=== PATIENT | female | born 1955 | race Caucasian/White ===

== ENCOUNTER 2025-04-05 10:29 | Outpatient (CLI) | payer MEDICARE, OTHER, SELFPAY ==
--- NOTE | ~2025-04-05 | CT_ITS ---
Non-contrast Head CT History: Status post fall Technique: Axial non-contrast imaging of the brain was performed. Dose reduction technique was used on this scan by utilizing automated exposure control and iterative reconstruction technique. The dose -length product (DLP) was 681.00 mGy-cm. Findings: There is no evidence of intracranial hemorrhage, mass lesion, or acute infarct. Brain par enchyma appears normal. The ventricles and subarachnoid spaces are normal in size. The calvarium ap pears normal. There is chronic right maxillary sinus disease. The remaining visualized paranasal sinu ses and mastoid air cells are clear. Impression: No intracranial abnormality seen. Chronic right maxillary sinus disease. Reviewed, dictated and finalized at location . Impression: No intracranial abnormality seen. Chronic right maxillary sinus disease.
--- NOTE | ~2025-04-05 | CT_ITS ---
History: Remote history of fall (approximately 3 weeks earlier) PROCEDURE: CT cervical spine without intravenous contrast. COMPARISON: None TECHNIQUE: Multiple contiguous axial images of the cervical spine were performed without the administration of i ntravenous contrast. DLP: 480 mGy-cm FINDINGS: Straightening and slight reversal of the normal curvature of the cervical spine is identified, likely muscular in origin. Degenerative disease is also noted, with osteophyte formation, disc space narrowing, endplate changes and vacuum phenomena. Facet arthropathy is also noted. No acute fractures are present. The bilateral lung apices are unremarkable. No soft tissue abnormality is present. The airway is patent. Impression: Straightening and slight reversal of the normal curvature of the cervical spine, likely muscular in o rigin. Degenerative disease, without acute fracture. Reviewed, dictated and finalized at location A. Impression: Straightening and slight reversal of the normal curvature of the cervical spine , likely muscular in origin. Degenerative disease, without acute fracture.
--- OUTSIDE RECORDS SUMMARY | 2025-04-05 11:21 | XMS_ITS | Referral Summary ---
Author Organization [facility] Address [address] [place] [address] Care Team Providers Care Rivet Heater Gas Name Role Phone Noah Mccarty MD Primary Care Provider Enid Martin MD Unavailable Richard Rankin DPT Unavailable [phone] Zulay Ghotra DPT Unavailable Encounters Date Type Department Care Team Description 01/23/2025 1:00 PM CDT Telemedicine [facility] Pain Management [address] [place] [phone] Felton Gabriel, PhD Major depressive disorder, recurrent episode, moderate (HCC) (Primary Dx); Other chronic pain from Last 3 Months Allergies Active Allergy Reactions Criticality Noted Date Comments Hydrocodone Mental status changes Low Ibuprofen Mental status changes Low 04/16/2020 Lactose Diarrhea,Other (See comments),Flatulence Low 09/04/2021 velazquez Metformin Diarrhea Low 03/03/2023 Naproxen Hives,Unknown Medium 09/04/2021 anger Olanzapine Other (See comments),Unknown Low 09/04/2021 nightmares Other Hives,Unknown Medium 06/25/2021 Beets Other reaction(s): Hives Red Dye Hives Medium Medications colestipol (COLESTID) 1 gram tabletIndications: diarrhea prevention Take 1 tablet (1 g total) by mouth every morning Active cycloSPORINE (RESTASIS) 0.05 % ophthalmic emulsionIndication s:Dry Eye Administer 1 drop into both eyes every 12 (twelve) hours Active ALPRAZolam (XANAX) 0.5 mg tablet Take 1 tablet (0.5 mg total) by mouth 3 (three) times a day as needed for anxiety or sleep 4 8 Active nitrofurantoin (MACRODANTIN) 100 mg capsuleIndications :Prophylaxis, Medical Take 1 capsule (100 mg total) by mouth 4 (four) times a day as needed (to prevent UTI) Active valACYclovir (VALTREX) 500 mg tabletIndications: cold sore exacerbation Take 1 tablet (500 mg total) by mouth 2 (two) times a day as needed (HSV outbreaks) Active FLUoxetine (PROzac) 40 mg capsuleIndications :depression Take 1 capsule (40 mg total) by mouth every morning Active furosemide (LASIX) 20 mg tabletIndications: Edema Take 2 tablets (40 mg total) by mouth every morning Active doxycycline (VIBRAMYCIN) 100 mg capsuleIndications :Ocular Rosacea Take 1 tablet/capsule (100 mg total) by mouth ceo and founder before breakfast Active QUEtiapine (SEROquel) 100 mg tabletIndications: Anxiety with Depression Take 1 tablet (100 mg total) by mouth nightly Active epinastine 0.05 % ophthalmic solutionIndication s:Allergic Conjunctivitis Administer 1 drop into both eyes 2 (two) times a day as needed (allergy eyes) Active mv-min/iron/folic/ calcium/vitK (WOMEN'S MULTIVITAMIN ORAL)Indications:V itamin Deficiency Prevention Take 1 tablet by mouth every morning Active cholecalciferol (VITAMIN D-3) 2000 unit capsuleIndications :Prevention of Vitamin D Deficiency Take 2 capsules (4,000 Units total) by mouth every morning Active cyanocobalamin, vitamin B-12, (VITAMIN B-12 ORAL)Indications:s upplement Take 1 tablet by mouth nightly Active docosahexaenoic acid/epa (FISH OIL ORAL)Indications:h ealth Take 1 capsule by mouth ceo and founder before breakfast Active fluorometholone (FML) 0.1 % ophthalmic suspensionIndicati ons:Ocular Rosacea Administer 1 drop into both eyes 2 (two) times a day 1 Active gabapentin 10 % cream, metered-dose applicator Apply 1 Dose topically daily as needed (infection) Active fexofenadine (ANNABELLE) 180 mg tabletIndications: Allergic Rhinitis Take 1 tablet (180 mg total) by mouth daily before breakfast Active meloxicam (MOBIC) 15 mg tabletIndications: Osteoarthritis Take 1 tablet (15 mg total) by mouth daily before breakfast Active acetaminophen-code ine (TYLENOL with CODEINE #4) 300-60 mg per tablet Take 1 tablet by mouth every 4 (four) hours as needed for pain 2 Active potassium chloride ER 10 mEq CR capsuleIndications :hypokalemia prevention Take 1 tablet/capsule (10 mEq total) by mouth daily before breakfast 2 Active rOPINIRole (REQUIP) 1 mg tabletIndications: Restless Legs Syndrome Take 2 tablets (2 mg total) by mouth nightly 2 Active spironolactone (ALDACTONE) 25 mg tabletIndications: edema Take 1 tablet (25 mg total) by mouth daily before breakfast 2 Active cyclobenzaprine (FLEXERIL) 5 mg tablet Take 1 tablet (5 mg total) by mouth 3 (three) times a day as needed for muscle spasms 2 Active rosuvastatin (CRESTOR) 10 mg tabletIndications: hyperlipidemia Take 1 tablet (10 mg total) by mouth daily before breakfast 3 Active calcium citrate/vitamin D3 (CITRACAL + D ORAL)Indications:b one health Take 4 capsules by mouth ceo and founder before breakfast Active solifenacin (VESIcare) 5 mg tabletIndications: Bladder Hyperactivity Take 1 tablet (5 mg total) by mouth nightly 3 Active polymyxin B-trimethoprim (POLYTRIM) ophthalmic solution Administer 1 drop into both eyes every 6 (six) hours 3 Active Qsymia 7.5-46 mg capsule, ER multiphase 24 hr 3 Active Lyrica CR 165 mg tablet extended release 24 hr 4 Active amitriptyline (ELAVIL) 100 mg tabletIndications: Complex regional pain syndrome type 1 of lower extremity, unspecified laterality Take 2 tablets (200 mg total) by mouth nightly 360 tablet 2 4 Active Qsymia 11.25-69 mg capsule, ER multiphase 24 hr TAKE 1 CAPSULE BY MOUTH ONCE DAILY IN THE MORNING 4 Active valACYclovir (VALTREX) 1 gram tablet 4 Active moxifloxacin (VIGAMOX) 0.5 % ophthalmic solution INSTILL 1 DROP INTO THE LEFT EYE 4 TIMES A DAY FOR 1 WEEK. 4 Active tiZANidine (ZANAFLEX) 4 mg tablet TAKE 1/2-1 TABLET BY MOUTH EVERY 6-8 HOURS NEEDED NOT TO EXCEED 3 DOSES IN 24 HOURS 4 Active Active Problems Problem Noted Date Diagnosed Date Radicular pain of thoracic region 04/12/2024 Status post insertion of spinal cord stimulator 09/07/2023 Complex regional pain syndrome type 1 05/10/2023 Ischial bursitis 04/27/2023 Thoracic spondylosis 03/13/2023 Sacroiliitis 12/02/2022 Complex regional pain syndro me type 1 of both lower extremities 12/02/2022 Other chronic pain 11/19/2022 Major depressive disorder, recurrent episode, mo derate 11/19/2022 Lumbar radiculopathy 11/10/2022 Neuroma of left upper extremity 11/27/2021 Overview (11/27/2021): Added automatically from request for surgery [id number] Abdominal bloating 11/07/2021 Diverticular disease of colon 11/07/2021 Flatulence 11/07/2021 Lactose intolerance 11/07/2021 Iron deficiency anemia 11/07/2021 Intestinal malabsorption 11/07/2021 Neuropathy of right ulnar nerve at wrist 021 Overview (10/03/2021): Added automatically from request for surgery [id number] Pelvic pain 06/14/2017 Pain in wrist 05/06/2017 History of artificial joint 05/20/2016 Osteoarthritis of hip 02/24/2016 Family history of CREST syndrome Immunizations Immunization Administration Dates Next Due Influenza, Trivalent, IM (MDV) 07/18/2016 Influenza, Trivalent, Preser vative Free, Intramuscular 07/25/2019,07/18/2018,07/23/2015 Influenza, Unspecified 07/11/2021 Social History Tobacco Use Types Packs/Day Years Used Date Smoking Tobacco: Never Smokeless Tobacco: Never Tobacco Cessation:Counseling Given: Not Answered AUDIT-C Answer Date Recorded Q1: How often do you have a drink containing alc ohol? 2-3 times a week 04/11/2024 Q2: How many drinks containi ng alcohol do you have on a typical day when you are drinking? 1 or 2 04/11/2024 Q3: How often do you have si x or more drinks on one occasion? Never 04/11/2024 Hunger Vital Sign Answer Date Recorded Within the past 12 months, y ou worried that your food would run out before you got the money to buy more. Never true 05/07/20 23 Within the past 12 months, t he food you bought just didn't last and you didn't have money to get more. Never true 05/07/2023 Personal Safety Answer Date Recorded Have you ever been in or are you currently in a harmful physical or emotional relationship or is someone making you feel afraid or unsafe? 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 Gender Identity Female 05/24/2018 1:36 PM CDT Sexual Orientation Straight 01/07/2023 7: 48 AM CDT Last Filed Vital Signs Vital Sign Reading Time Taken Comments Blood Pressure 115/58 04/11/2024 4:02 PM CDT Pulse 77 04/11/2024 4:02 PM CDT Temperature 36.5 C (97.7 F) 04/11/2024 1:46 PM CDT Respiratory Rate 16 04/11/2024 4:02 PM CDT Oxygen Saturation 97% 04/11/2024 4:02 PM CDT Inhaled Oxygen Concentration - - Weight 95.7 kg (211 lb) 04/11/2024 1:46 PM CDT Height 157.5 cm (5' 2) 04/11/2024 1:46 PM CDT Body Mass Index 38.59 04/11/2024 1:46 PM CDT Plan of Treatment Not on file Goals Goal Patient Goal Type Associated Problems Recent Progress Patient-Stated? Author CCM Chronic Pain Care Plan Chronic Care Management No change(01/27 8:06 AM CDT) No Anny Goldstein RN Note: Problem: Chronic Pain Goals: 1. Minimize further functional decline 2. Maximize quality of life 3. Control pain Strategies: - Activity/exercise program recommendation - Conservative stepwise pain medicine strategy with multi-disciplinary approach - Recommend healthy lifestyle strategies and compensatory methods as needed Medical Devices Implanted Type Area Fire And Safety Helper Device Identifier Shelf Expiration Date Model / Serial / Lot [employer] Axium Slimtip 1mm 50cm 4 Electrode Lead Front Load Delivery 5mm [id number] - [id number] - [id number] Implanted:Qty: 1 on 08/31/2023 by Dennis Foster MD PhD at [facility] Lead N/A: Epidural Space [employer] 07/22/2024 [id number] 50A / [id number] / [employer] Axium Slimtip 1mm 50cm 4 Electrode Lead Front Load Delivery 5mm [id number] - [id number] - [id number] Implanted:Qty: 1 on 08/31/2023 by Dennis Foster MD PhD at [facility] Lead N/A: Epidural Space [employer] 11/05/2024 [id number] 50A / [id number] / [employer] Axium Slimtip 1mm 50cm 4 Electrode Lead Front Load Delivery 5mm [id number] - [id number] - [id number] Implanted:Qty: 1 on 08/31/2023 by Dennis Foster MD PhD at [facility] Lead N/A: Epidural Space [employer] 03/10/2025 [id number] 50A / [id number] / Rtha-05/07/2005 Implanted:05/07/20 05 (Quantity not on file) Right: Hip [employer] [id number] Seprafilm 6x5in Barrier Adhesion Sterile Disposable Latex Free - [id number] Implanted:Qty: 1 on 10/22/2021 by Ira Marsh MD at [facility] Right: Wrist [facility] [id number] 01/08/2024 [id number] / / [id number] 2 [employer] [id number] Seprafilm 6x5in Barrier Adhesion Sterile Disposable Latex Free - [id number] Implanted:Qty: 1 on 12/09/2021 by Ira Marsh MD at [facility] Left: Wrist [facility] Justin [id number] 01/08/2024 [id number] / / [id number] 2 [employer] Axium Slimtip 1mm 50mm Front Load 4 Electrode 5mm Space Lead [id number] - [id number] - [id number] Implanted:Qty: 1 on 05/10/2023 by Dennis Foster MD PhD at [facility] [employer] [id number] 06/09/2024 [id number] 50A / [id number] / [employer] Axium Slimtip 1mm 50mm Front Load 4 Electrode 5mm Space Lead [id number] - [id number] - [id number] Implanted:Qty: 1 on 05/10/2023 by Dennis Foster MD PhD at [facility] [employer] [id number] 08/30/2024 [id number] [id number] / [id number] / [employer] Axium Slimtip 1mm 50mm Front Load 4 Electrode 5mm Space Lead [id number]-1/24/2 023 Implanted:05/10/20 by Dennis Foster MD PhD (Quantity not on file) N/A: Back [employer] [id number] 08/30/2024 [id number] [id number] / [id number] / [employer] Axium Slimtip 1mm 50mm Front Load 4 Electrode 5mm Space Lead [id number] - [id number] - [id number] Implanted:Qty: 1 on 08/06/2023 by Dennis Foster MD PhD at [facility] [employer] [id number] 07/07/2024 [id number]- 50A / [id number] / [employer] Neurostimulator Proclaim Drg Ipg W Iphone Pt Controller [id number] - [id number] - [id number] Implanted:Qty: 1 on 09/02/2023 by Dennis Foster MD PhD at [facility] N/A: Epidural Space St [employer] [id number] SYSXX / [id number] / [place] [id number] [employer] MEDICARE COMMERCIAL GENERIC MEDICARE [employer] [place] [address] MEDICARE FOR LIFE Advance Directives For more information, please contact: [phone] Documents on File Type Date Recorded Patient Slipper Maker Expl anation ADVANCE DIRECTIVE 09/07/2023 12:37 AM MARIA T ING WILL ADVANCE DIRECTIVE 09/07/2023 12:37 AM POW ER OF BIOPHARMACEUTICAL REP-MEDICAL * Full Code (Latest Code Status on File) Date Activated Date Inactivated Comments 10/22/2021 7:28 PM 10/23/2021 2:52 PM Care Teams Rivet Heater Gas Relationship Specialty Start Date End Date Noah Mccarty MD [address] [place] [address] PCP - General 04/26/17 [place] [address] [place] [address] Surgeon Orthopedic Surgery 06/16/18 Richard Rankin DPT [address] [place] [address] Physical Therapist Physical Therapy 12/20/22 Zulay Ghotra DPT [address] [place] [address] Referring Physician Physical Therapy 03/09/24
--- OUTSIDE RECORDS SUMMARY | 2025-04-05 11:21 | XMS_ITS | Clinical Summary ---
Author Organization [facility] Address [address] [place] [address] Care Team Providers Care Manager Pool Name Role Phone Noah Mccarty MD Primary Care Provider Enid Martin MD Unavailable Richard Rankin DPT Unavailable [phone] Zulay Ghotra DPT Unavailable [phone] Allergies Active Allergy Reactions Criticality Noted Date [...] 1 tablet/capsule (100 mg total) by mouth trim setter before breakfast Active QUEtiapine (SEROquel) 100 mg [...] ORAL)Indications:h ealth Take 1 capsule by mouth trim setter before breakfast Active fluorometholone (FML) 0.1 % [...] one health Take 4 capsules by mouth trim setter before breakfast Active solifenacin (VESIcare) 5 mg [...] (11/27/2021): Added automatically from request for surgery [id number] Abdominal bloating 11/07/2021 Diverticular disease of colon 11/07/2021 Flatulence 11/07/2021 Lactose intolerance 11/07/2021 Iron deficiency anemia 11/07/2021 Intestinal malabsorption 11/07/2021 Neuropathy of right ulnar nerve at wrist 021 Overview (10/03/2021): Added automatically from request for surgery [id number] Pelvic pain 06/14/2017 Pain in wrist 05/06/2017 History of artificial joint 05/20/2016 Osteoarthritis of hip 02/24/2016 Family history of CREST syndrome Encounters Date Type Department Care Team Description 01/23/2025 1:00 PM CDT Telemedicine [facility] Pain Management [address] [place] [phone] Felton Gabriel, PhD Major depressive disorder, recurrent episode, moderate (HCC) (Primary Dx); Other chronic pain from Last 3 Months Immunizations Immunization Administration Dates Next Due Influenza, Trivalent, IM (MDV) 07/18/2016 Influenza, Trivalent, Preser vative Free, Intramuscular 07/25/2019,07/18/2018,07/23/2015 Influenza, Unspecified 07/11/2021 Surgical History Surgery Date Site/Laterality Comments IA TONSILLECTOMY PRIMARY/SEC ONDARY <AGE 12 10/18/1964 - 10/17/1965 HYSTERECTOMY 10/18/1993 - 10/17/1994 GASTRIC BYPASS 10/18/2003 - 10/17/2004 IA ARTHRP ACETBLR/PROX FEM P ROSTC AGRFT/ALGRFT 10/18/2015 - 10/17/2016 Right CARPAL TUNNEL RELEASE 10/18/2000 - 10/17/2001 Bilateral COMBINED AUGMENTATION MAMMAP LASTY AND ABDOMINOPLASTY 10/18/2006 - 10/17/2007 Bilateral WRIST SURGERY 10/18/2016 - 10/17/2017 Bilateral pisaform CARPAL TUNNEL RELEASE 10/18/2021 - 11/17/2021 TONSILLECTOMY 3rd grade FLUORO GUIDED ASPIRATION OR INJECTION INTERMEDIATE JOINT RIGHT 05/10/2023 Right FLUORO GUIDED ASPIRATION OR INJECTION INTERMEDIATE JOINT RIGHT 08/06/2023 Right Medical History Medical History Date Comments Raynaud disease Primary generalized (osteo)arthritis Depression Sleep apnea pt uses CPAP mac lana every night Right foot pain CRPS (complex regional pain syndrome type I) Coccyx pain Right foot pain Low back pain Mid back pain Low back pain Family History Medical History Relation Name Comments Sleep apnea Brother Diabetes Father Family history of diabetes mellitus - (Added by TW Conv) Arthritis Mother Family history of arthritis - (Added by TW Conv) Heart disease Other 1 Family history of cardiac disorder - (Added by TW Conv) Mental illness Other 2 FH: mental il lness - (Added by TW Conv) Arthritis Other 3 Family history of arthritis - (Added by TW Conv) Diabetes Other 4 Family history of diabetes mellitus - (Added by TW Conv) Sleep apnea Sister 1 Sleep apnea Sister 2 Anesthesia problems Neg Hx Relation Name Status Comments Brother Father Mother Other 1 Other 2 Other 3 Other 4 Sister 1 Sister 2 Social History Tobacco Use Types Packs/Day Years [...] on file 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 Gender Identity Female 05/24/2018 1:36 PM CDT Sexual Orientation Straight 01/07/2023 7: 48 AM CDT Obstetrics History Last Filed Vital Signs Vital Sign Reading [...] 04/11/2024 1:46 PM CDT Plan of Treatment Health Maintenance Due Date Last Done Comments Breast Cancer Screening-Mammogram 1957 Colon Cancer Screening-Colonoscopy 1957 Depression Screening 1957 Hepatitis C Screening 1957 Osteoporosis Screening-Bone Density Scan 1957 DTaP/Tdap/Td Vaccine (1 - Tdap) 1968 Hepatitis B Screening 1975 Zoster Vaccine (2 of 3) 06/13/2012 04/18/2012 Well Visit 65+ 2022 Pneumococcal vaccine 65+ (2 of 2 - PCV) 02/11/2023 02/11/2022, 08/28/2020 Covid-19 Vaccine (2023-2 5 season) 2024 09/12/2021, 03/19/2021, 02/11/2021 Fall Risk Assessment 08/31/2024 08/31/2023 Influenza Vaccine (Season Ended) 2025 02/11/2022, 07/11/2021, 07/25/2019, Additional history exists Goals Goal Patient Goal Type Associated Problems [...] as needed Medical Devices Implanted Type Area Tank Truck Driver Device Identifier Shelf Expiration Date Model / Serial / Lot [employer] Axium Slimtip 1mm 50cm 4 Electrode Lead Front Load Delivery 5mm [id number] - [id number] - [id number] Implanted:Qty: 1 on 08/31/2023 by Dennis Foster MD PhD at [facility] Lead N/A: Epidural Space [employer] 07/22/2024 [id number]- 50A / [id number] / [employer] Axium Slimtip 1mm 50cm 4 Electrode Lead Front Load Delivery 5mm [id number] - [id number] - [id number] Implanted:Qty: 1 on 08/31/2023 by Dennis Foster MD PhD at [facility] Lead N/A: Epidural Space [employer] 11/05/2024 [id number]- 50A / [id number] / [employer] Axium Slimtip 1mm 50cm 4 Electrode Lead Front Load Delivery 5mm [id number] - [id number] - [id number] Implanted:Qty: 1 on 08/31/2023 by Dennis Foster MD PhD at [facility] Lead N/A: Epidural Space [employer] 03/10/2025 [id number]- 50A / [id number] / Rtha-05/07/2005 Implanted:05/07/20 (Quantity not on file) Right: Hip [employer] [id number] Seprafilm 6x5in Barrier Adhesion Sterile Disposable Latex Free - [id number] Implanted:Qty: 1 on 10/22/2021 by Ira Marsh MD at [facility] Right: Wrist [facility] [id number] 01/08/2024 [id number] / / [id number] 2 [employer] [id number] Seprafilm 6x5in Barrier Adhesion Sterile Disposable Latex Free - [id number] Implanted:Qty: 1 on 12/09/2021 by Ira Marsh MD at [facility] Left: Wrist [facility] [id number] 01/08/2024 [id number] / / [id number] 2 [employer] Axium Slimtip 1mm 50mm Front Load 4 Electrode 5mm Space Lead [id number] - [id number] - [id number] Implanted:Qty: 1 on 05/10/2023 by Dennis Foster MD PhD at [facility] [employer] [id number] 06/09/2024 [id number]- 50A / [id number] / [employer] Axium Slimtip 1mm 50mm Front Load 4 Electrode 5mm Space Lead [id number] - [id number] - [id number] Implanted:Qty: 1 on 05/10/2023 by Dennis Foster MD PhD at [facility] [employer] [id number] 08/30/2024 [id number]- 50A / [id number] / [employer] Axium Slimtip 1mm 50mm Front Load 4 Electrode 5mm Space Lead [id number]-9/24/2 023 Implanted:05/10/20 by Dennis Foster MD PhD (Quantity not on file) N/A: Back [employer] [id number] 08/30/2024 [id number]- 50A / [id number] / [employer] Axium Slimtip 1mm 50mm Front Load 4 Electrode 5mm Space Lead [id number] - [id number] - [id number] Implanted:Qty: 1 on 08/06/2023 by Dennis Foster MD PhD at [facility] [employer] [id number] 07/07/2024 [id number]- 50A / [id number] / [employer] Neurostimulator Proclaim Drg Ipg W Iphone Pt Controller [id number] - [id number] - [id number] Implanted:Qty: 1 on 09/02/2023 by Dennis Foster MD PhD at [facility] N/A: Epidural Space [employer] [id number] SYSXX / [id number] / Insurance [employer] [facility] MEDICARE COMMERCIAL GENERIC MEDICARE [employer] [place] [address] FOR LIFE Advance Directives For more information, please contact: [phone] Documents on File Type Date Recorded Patient Butter Grader Expl anation ADVANCE DIRECTIVE 09/07/2023 12:37 AM MARIA T ING WILL ADVANCE DIRECTIVE 09/07/2023 12:37 AM POW ER OF FOAM FABRICATOR-MEDICAL * Full Code (Latest Code Status on File) Date Activated Date Inactivated Comments 10/22/2021 7:28 PM 10/23/2021 2:52 PM Care Teams Manager Pool Relationship Specialty Start Date End Date Noah Mccarty MD [address] [place] [address] PCP - General 04/26/17 [place] [address] [place] [address] Surgeon Orthopedic Surgery 06/16/18 Richard Rankin DPT [address] [place] [address] Physical Therapist Physical Therapy 12/20/22 Zulay Ghotra DPT [address] [facility] [address] [place] [address] Referring Physician Physical Therapy 03/09/24
--- OUTSIDE RECORDS SUMMARY | 2025-04-05 11:21 | XMS_ITS | Encounter Summary ---
Author Organization [facility] Address [address] [place] [address] Phone Care Team Providers Care Mens Locker Room Attendant Name Role Phone Noah Mccarty MD Primary Care Provider Enid Martin MD Unavailable Richard Rankin DPT Unavailable [phone] Padmini Turner DPT Unavailable [phone] Lissett Hernandez DPT Unavailable [phone] Zulay Ghotra DPT Unavailable [phone] Encounter Details Date Type Department Care Team (Late st Contact Info) Description 12/29/2022 Documentation [facility] [address] [facility] [address] 14th [place] [address] [place] [address] Kimberly Davila, PT [address] [facility] [address] [place] [address] Social History Tobacco Use Types Packs/Day Years Used Date Smoking Tobacco: Never Smokeless Tobacco: Never AUDIT-C Answer Date Recorded Q1: How often do you have a drink containing alc ohol? Monthly or less 12/29/2022 Q2: How many drinks containi ng alcohol do you have on a typical day when you are drinking? 1 or 2 12/29/2022 Q3: How often do you have si x or more drinks on one occasion? 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 Monthly or less 12/29/2022 10:16 AM CDT Anny Goldstein RN Q2: How many drinks containing alcohol do you have on a typical day when you are drinking? 1 or 2 12/29/2022 10:16 AM CDT Anny Goldstein RN Q3: How often do you have six or more drinks on one occasion? Never 12/29/2022 10:16 AM CDT Anny Goldstein RN documented as of this encounter Plan of Treatment Not on file documented as of this encounter Goals Goal Patient Goal Type Associated Problems [...] lifestyle strategies and compensatory methods as needed documented as of this encounter Visit Diagnoses Not on filedocumented in this encounter Care Teams Mens Locker Room Attendant Relationship Specialty Start Date End Date Noah Mccarty MD [address] [facility] [place] [address] PCP - General 7/10/17 [place] [address] [place] [address] Surgeon Orthopedic Surgery 06/16/18 Richard Rankin, DPT [address] [place] [address] Physical Therapist Physical Therapy 12/20/22 Padmini Turner, DPT [address] [facility] [address] [place] [address] Physical Therapist Physical Therapy 11/18/23 03/08/24 Lissett Hernandez DPT [address] [facility] [address] [place] [address] Physical Therapist Physical Therapy 03/09/24 03/09/24 Zulay Ghotra, DPT [address] [facility] [address] [place] [address] Referring Physician Physical Therapy 03/09/24 documented as of this encounter
--- OUTSIDE RECORDS SUMMARY | 2025-04-05 11:21 | XMS_ITS | Patient Health Record ---
Author Organization [facility] Address [address] [address] Care Team Providers Care Custom Home Installer Name Role Phone Noah Mccarty Primary Care Provider Courtney Schmitt MD, [facility] [phone] ALLERGIES Allergen (clinical drug ingredient) Drug/Non Drug Allergy documented on EMR Reaction Allergy Type Onset Date Status Lactose (Allergy) Unknown Allergy Ac tive olanzapine Zyprexa Unknown Drug Allergy Active acetaminophen / hydrocodone Hydrocodone-Acetamino phen Unknown Drug Allergy Active Aleve Unknown Drug Allergy Active REASON FOR REFERRAL No Information MEDICATIONS Medication SIG (Take, Route, Fr equency, Duration) Notes Start Date End Date Status Atralin Unknown Vitamin D3 Active Xanax Unknown Womens Multivitamin Active Hyaluronic Acid Acti ve Fexofenadine HCl Act romel Vitamin B12 Active Vitamin B 12 Active Citracal + D Active VESIcare Active Diclofenac Sodium 1 % as directed Transdermal Active Tylenol Active Amitriptyline HCl Ac tive QUEtiapine Fumarate Active Potassium Chloride ER Active Zolpidem Tartrate Ac tive Furosemide Active Doxycycline Active Atrantil Active ALPRAZolam Active Epinastine HCl Activ e rOPINIRole HCl Unkno wn Atorvastatin Calcium Active Fluoxetine Active Colestipol HCl Activ e Citracal + D Active Meloxicam Active Gabapentin Unknown CeleBREX Unknown Fish Oil Active Restasis Unknown IMMUNIZATIONS Vaccine Route Administration Date Status Comme nts Influenza Unknown 02/11/2022 Administered pneumoccocal Unknown 02/11/2022 Administered Influenza Unknown 08/20/2020 Refused pneumoccocal Unknown 08/20/2020 Refused SOCIAL HISTORY Tobacco Use: Social History Observation Description Date Details (start date - stop date) Never Smoker NA - NA Sex Assigned At : Social History Observation Description Sex Assigned At Unknown Tobacco Use: Question Answer Notes Patient is a: nonsmoker Alcohol screening: Question Answer Notes Did you have a drink contain ing alcohol in the past year? Yes How often did you have a dri nk containing alcohol in the past year? Four or more times a week (4 points) How many drinks did you have on a typical day when you were drinking in the past year? 1 or 2 (0 points) How often did you have six o r more drinks on one occasion in the past year? Never (0 points) Points 4 Interpretation Positive PROBLEMS Problem Type ICD Code Onset Dates Problem Status W/U Status Risk SNOMED Code Notes Problem Unilateral primary osteoarthritis, right hip (M16.11) Active confirmed Localized , primary osteoarthritis of the pelvic region and thigh (366765395) Problem Plantar fascial fibromatosis (M72.2) 01/01/20 22 Active confirmed 13736292 Problem Pain in right ankle and joints of right foot (M25.571) 04/16/20 18 Active confirmed 897575729 Problem Trigger thumb, right thumb (M65.311) Active confirmed 880838365912464 Problem Trigger finger, right index finger (M65.321) Active confirmed 403663147 Problem Trigger finger, left index finger (M65.322) Active confirmed 571187204 Problem Trigger finger, left middle finger (M65.332) Active confirmed 450214986 Problem Trigger finger, right ring finger (M65.341) 04/03/20 21 Active confirmed 430643919 Problem Trigger finger, right little finger (M65.351) 04/03/20 21 Active confirmed 314445835 Problem Trigger finger, left little finger (M65.352) Active confirmed 586912141 Problem Cramp and spasm (R25.2) 04/18/20 21 Active confirmed 79757021 Problem Other sprain of right hip, initial encounter (S73.191A) Active confirmed sprain of right hip (6687729320305555 4) Problem Neck pain (M54.2) 04/03/20 21 Active confirmed 84608880 Problem Numbness (R20.0) Active confirmed 95864 006 Problem Primary osteoarthritis of both first carpometacarpal joints (M18.0) Active confirmed 577509118 Problem Trigger little finger of right hand (M65.351) Active confirmed 097372100 Problem Hand weakness (R29.898) 04/18/20 21 Active confirmed 248778691 PLAN OF TREATMENT No Information Insurance Providers Payer Name Payer Address Payer Phone Subscriber Number Group Number Insured Name Patient Relationship to Insured Coverage Start Date Coverage End Date [facility] Claims [address] [place] [address] [id number] Arnie Garcia Spouse - patient is the spouse of the insured [employer] [address] [place] [address] [id number] Arnie Garcia Spouse - patient is the spouse of the insured MEDICAL (GENERAL) HISTORY Medical History History ICD Code irritable bowel syndrome anxiety depression raynauds syndrome arthritis, osteo sleep apnea peripheral neuropathy Surgical History Surgery Date(Month/Year) tubal ligation gastric bypass carpal tunnel release, bilatera tonsillectomy and adenoidectomy hysterectomy partial knee replacement, right right hip replacement Pisiform extraction, bilateral tummy tuck
--- OUTSIDE RECORDS SUMMARY | 2025-04-05 11:21 | XMS_ITS | Clinical Summary ---
Author Organization [facility] Address [address] [place] [address] Care Team Providers Care Repair Operator Name Role Phone Marcos Campbell MD Primary Care Provider + Allergies Active Allergy Reactions Criticality Noted Date Comments Beet Hives High 06/09/2024 Hydrocodone Hives High 04/27/2024 Ibuprofen Diarrhea,Nausea and Vomiting Low 020 Lactose Diarrhea,Abdominal Pain,Other (See Comments) Low 09/04/2021 velazquez Metformin Diarrhea Low 03/03/2023 Naproxen Hives,Unknown High 09/04/2021 anger Olanzapine Other (See Comments),Unknown Low 021 nightmares Olanzapine Pamoate Other (See Comments) 025 Nightmares Red Dye Hives High 04/27/2024 Medications ALPRAZolam (XANAX) 0.5 mg tablet Take 0.5 mg by mouth nightly as needed. 09/22/20 23 Active Cholecalciferol, Vitamin D3, 50 mcg (2,000 unit) Capsule Take 4,000 Units by mouth daily. Active colestipoL (COLESTID) 1 gram tablet Take 1 Gram by mouth 2 times daily. 02/17/20 23 Active FLUoxetine (PROzac) 40 mg capsule 40 mg daily. 08/26/20 23 Active meloxicam (MOBIC) 15 mg tablet Take 15 mg by mouth daily before breakfast. 08/26/20 Active potassium chloride (MICRO-K EXTENCAPS) 10 mEq Extended Release capsule Take 20 mEq by mouth daily. 06/20/20 Active pregabalin (LYRICA CR) 165 mg Extended Release 24 hour tablet 165 mg 3 times daily. 11/18/19 24 Active rOPINIRole (REQUIP) 1 mg tablet Take 2 mg by mouth daily at bedtime. 06/16/20 Active rosuvastatin (CRESTOR) 10 mg tablet Take 10 mg by mouth daily. 03/29/20 23 Active solifenacin (VESICARE) 5 mg Tablet Take 5 mg by mouth daily at bedtime. 08/17/20 Active spironolactone (ALDACTONE) 25 mg tablet Take 25 mg by mouth daily. 06/20/20 Active tiZANidine (ZANAFLEX) 4 mg Tablet TAKE 1/2-1 TABLET BY MOUTH EVERY 6-8 HOURS NEEDED NOT TO EXCEED 3 DOSES IN 24 HOURS 02/08/20 Active zolpidem (AMBIEN) 10 mg tablet Take 10 mg by mouth nightly as needed. 09/22/20 Active fexofenadine (ANNABELLE) 180 mg tablet Take 180 mg by mouth daily. Active furosemide (LASIX) 20 mg tablet Take 40 mg by mouth daily. Active cycloSPORINE (RESTASIS) 0.05 % emulsion Administer 1 Drop in both eyes 2 times daily. Active epinastine (ELESTAT) 0.05 % solution 1 Drop by See Admin Instructions route 2 times daily. Active amitriptyline (ELAVIL) 100 mg tablet Take 100 mg by mouth daily at bedtime. Active azelastine (OPTIVAR) 0.05 % solution 1 Drop by See Admin Instructions route 2 times daily. Active nitrofurantoin macrocrystaL (MACRODANTIN) 25 mg Capsule Take 25 mg by mouth 4 times daily with meals and at bedtime. Active valACYclovir (VALTREX) 1 gram tablet Take 1 Gram by mouth 2 times daily. Active OTHERIndications :Complex regional pain syndrome type 2 of right lower extremity Drug name: Lidocaine 5%, Clonidine 0.2%, Ketoprofen 10%, Gabapentin 10%, ketamine 5%, Amitriptyline 1%. Apply to right foot for pain up to 4x/day as needed. 60 Gram 01/18/20 25 Active Active Problems Problem Noted Date Diagnosed Date Complex regional pain syndro me type 2 of right lower extremity 07/10/2024 Chronic use of opiate drug for therapeutic purpo se 07/10/2024 Family history of CREST syndrome 04/27/2024 Myofascial pain 04/27/2024 Radicular pain of thoracic region 04/12/2024 Status post insertion of spinal cord stimulator 09/07/2023 Complex regional pain syndrome type 1 05/10/2023 Ischial bursitis 04/27/2023 Thoracic spondylosis 03/13/2023 Sacroiliitis 12/02/2022 Major depressive disorder, recurrent episode, mo derate 11/19/2022 Other chronic pain 11/19/2022 Lumbar radiculopathy 11/10/2022 Neuroma of left upper extremity 11/27/2021 Overview (04/27/2024): Added automatically from request for surgery [id number] Diverticular disease of colon 11/07/2021 Intestinal malabsorption 11/07/2021 Iron deficiency anemia 11/07/2021 Lactose intolerance 11/07/2021 Neuropathy of right ulnar nerve at wrist 021 Overview (04/27/2024): Added automatically from request for surgery [id number] Pain in wrist 05/06/2017 History of artificial joint 05/20/2016 Osteoarthritis of hip 02/24/2016 Encounters Date Type Department Care Team Description 04/03/2025 11:30 AM CDT Office Visit [facility] [address] [place] [address] Jenni Tobar NP Complex regional pain syndrome type 2 of right lower extremity (Primary Dx); Ischial bursitis, unspecified laterality 03/13/2025 External Device Data STL ABSTRACTION Provider, Abstract 03/08/2025 2:30 PM CDT Office Visit [facility] [address] [place] [place] [address] Jenni Tobar, ANGELICA Complex regional pain syndrome type 2 of right lower extremity (Primary Dx); Falls 03/07/2025 External Device Data STL ABSTRACTION Provider, Abstract 03/06/2025 External Device Data STL ABSTRACTION Provider, Abstract 03/05/[address] [facility] [address] [place] [phone] Dennis Foster MD 03/01/2025 9:00 AM CDT - 03/01/2025 9:55 AM CDT Surgery [facility] Operating Room [address] [facility] [address] [place] [address] Dennis Foster MD SPINAL CORD DORSAL COLUMN STIMULATOR INSERTION 03/01/2025 8:05 AM CDT Ancillary Procedure [facility] Operating Room [address] [facility] [address] [place] [address] Dennis Foster MD 03/01/2025 7:49 AM CDT - 03/01/2025 10:10 AM CDT Hospital Encounter [facility] [address] [facility] [address] [place] [address] Dennis Foster MD Causalgia of right lower extremity Discharge Disposition: Home or Self Care 02/20/[address] [facility] [address] [place] [place] [address] Dennis Foster MD 02/20/[address] [facility] [address] [place] [address] Dennis Foster MD 02/12/[address] [facility] [address] [place] [address] Dennis Foster MD NEEDS PT ORDERS FOR [facility] [place], [place] 01/29/2025 9:10 AM CDT - 01/29/2025 9:22 AM CDT Surgery [facility] [address] [facility] [address] [place] [address] Dennis Foster MD BURSA TROCHANTERIC STEROID INJECTION BILATERAL 01/29/2025 8:25 AM CDT Ancillary Procedure [facility] Operating Room [address] [facility] [address] [place] [address] Dennis Foster MD 01/29/2025 8:15 AM CDT - 01/29/2025 10:37 AM CDT Hospital Encounter [facility] Pre Post [address] [facility] [address] [place] [address] Dennis Foster MD Bursitis of other bursa of hip, unspecified laterality Discharge Disposition: Home or Self Care 01/29/2025 Travel 01/25/[address] [facility] [address] [place] [address] Dennis Foster MD Medication Question 01/18/2025 Travel 01/18/[address] [facility] [address] [place], [place] [address] Dennis Foster MD 01/17/2025 1:20 PM CDT Office Visit [facility] [address] [place] [address] Dennis Foster MD Complex regional pain syndrome type 2 of right lower extremity (Primary Dx); Chronic use of opiate drug for therapeutic purpose; Ischial bursitis, unspecified laterality 01/03/2025 External Device Data STL ABSTRACTION Provider, Abstract from Last 3 Months Immunizations Immunization Administration Dates Next Due (PNEUMOVAX 23)(50 YRS UP) PN EUMOCOCCAL POLYSACCHARIDE (PPV23) 0.5 ML, IM 02/11/2022 Influenza Seasonal Unspecifi ed Formulation IM 07/18/2016 Influenza Seasonal Unspecifi ed Formulation PF IM 07/25/2019,07/18/2018,07/23/2015 Influenza Vaccine High Dose 65+ Yrs IM 2 Influenza, Unspecified Formulation 07/11/2021 Zoster Vaccine Live SQ 04/18/2012 Social History Tobacco Use Types Packs/Day Years Used Date Smoking Tobacco: Never Tobacco Cessation:Counseling Given: Not Answered Alcohol Use Standard Drinks/Week Comments Not Currently 0 (1 standard drink = 0.6 oz pur e alcohol) Feeling Safe Answer Date Recorded Are you in a relationship wi th someone who hurts you emotionally and/or physically? 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 Gender Identity Female 04/30/2024 7:27 PM CDT Sexual Orientation Not on file Last Filed Vital Signs Vital Sign Reading Time Taken Comments Blood Pressure 123/56 04/03/2025 11:16 AM CDT Pulse 85 04/03/2025 11:16 AM CDT Temperature 36.3 C (97.3 F) 03/01/2025 9:30 AM CDT Respiratory Rate 15 03/01/2025 9:30 AM CDT Oxygen Saturation 95% 04/03/2025 11:16 AM CDT Inhaled Oxygen Concentration - - Weight 90.1 kg (198 lb 9.6 oz) 04/03/2025 11:16 AM CDT Height 157.5 cm (5' 2) 04/03/2025 11:16 AM CDT Body Mass Index 36.32 04/03/2025 11:16 AM CDT Plan of Treatment Upcoming Encounters Date Type Department Care Team (Latest Contact Info) Description 05/15/2025 7:30 AM CDT Hospital Encounter [facility] Operating Room [address] [facility] [address] [place] [address] Dennis Foster MD [address] [place] [phone] Bursitis of both hips, unspecified bursa 05/15/2025 7:30 AM CDT - 05/15/2025 7:42 AM CDT Surgery [facility] Operating Room [address] [facility] [address] [place] [address] Dennis Foster MD [address] [place] [address] BURSA TROCHANTERIC STEROID INJECTION Scheduled Procedures Name Priority Associated Diagnoses Date/Ti me BURSA TROCHANTERIC STEROID INJECTION Bursitis of both hips, unspecified bursa 05/15/2025 7:30 AM CDT Health Maintenance Due Date Last Done Comments Pre-Diabetes and Diabetes Screening 1955 DTAP/TDAP/TD VACCINES (1 - Tdap) 1976 COLORECTAL SCREENING 2002 Colorectal Cancer Screening 2002 FIT-DNA Q 3 years 2002 FIT/FOBT Q 1 year 2002 Flex Sig/CT Colonography Q 5 years 2002 ZOSTER VACCINE (2 of 3) 06/13/2012 04/18/2012 BREAST CANCER SCREENING 05/24/2014 05/24/20 13, 05/24/2013, 05/08/2013 OSTEOPOROSIS SCREENING 2022 PNEUMOCOCCAL VACCINE 50+ YEA RS (2 of 2 - PCV) 02/11/2023 02/11/2022, 08/28/2020 INFLUENZA VACCINE (#1) 2024 2, 07/25/2019, 07/18/2018, Additional history exists COVID-19 Vaccine (2 - 2023-2 5 season) 2024 09/12/2021 RSV VACCINE (60+ or ) (1 - 1-dose 75+ series) 2032 Medical Devices Implanted Type Area Route Deliverer Device Identifier Shelf Expiration Date Model / Serial / Lot Lead Vectris 1x8 60cm Trial [facility] [id number] - [id number] Implanted:Qty: 1 on 03/01/2025 by Dennis Foster MD at [facility] Lead N/A: Back [employer]- NEUROLOGIC TECH 01/08/2029 [id number] / / [id number] Lead Vectris 1x8 60cm Trial [facility] [id number] - [id number] Implanted:Qty: 1 on 03/01/2025 by Dennis Foster MD at [facility] Lead N/A: Back [employer]- NEUROLOGIC TECH 01/26/2029 [id number] / / [id number] Neuro Stimulator Neuro Stimulator [employer]- [employer] 3664 / / Description:[email or web address] Minden [employer]la [employer] [id number] - [id number] Implanted:Qty: 1 on 03/01/2025 by Dennis Foster MD at [facility] Other N/A: Back [employer]- NEUROLOGIC TECH 12/28/2028 [id number] / / [id number] Total Hip Replacement Right: Hip Procedures Procedure Name Priority Date/Time Associated Diagnosis Comments XR FLUORO LESS THAN 1 HOUR Routine 03/01/2025 9:19 AM CDT IN ELEC LEANDRO IMPLT NPGT SMPL SP/PN NPGT PRGRMG 03/01/2025 9:00 AM CDT Causalgia of right lower extremity IN PRQ IMPLTJ NSTIM ELECTRODE ARRAY EPIDURAL 03/01/2025 9:00 AM CDT Causalgia of right lower extremity XR FLUORO LESS THAN 1 HOUR Routine 01/29/2025 9:34 AM CDT CHG FLUOROSCOPIC GUIDANCE NEEDLE PLACEMENT ADD ON 01/29/2025 9:10 AM CDT Bursitis of other bursa of hip, unspecified laterality IN ARTHROCENTESIS ASPIR&/INJ MAJOR JT/BURSA W/O US 01/29/2025 9:10 AM CDT Bursitis of other bursa of hip, unspecified laterality from Last 3 Months Results * XR FLUORO LESS THAN 1 HOUR (03/01/2025 9:19 AM CDT) Only the most recent of2 resultswithin the time period is included. Narrative 03/01/2025 9:19 AM CDT Order Auto Finalized. Please see associated Operative Report/Progress Note/Procedure Note from the same date. us Dennis Foster MD DIAGNOSTIC IMAGING ORDERABLES Final Result from Last 3 Months Insurance MEDICARE PART A AND B FOR LIFE Care Teams Repair Operator Relationship Specialty Start Date End Date Marcos Campbell MD [address] [place] [phone] PCP - General Internal Medicine 04/03/25
--- OUTSIDE RECORDS SUMMARY | 2025-04-05 11:21 | XMS_ITS | Patient Health Record ---
Author Organization [employer] Address [address] [facility] [address] [place] [address] Care Team Providers Care Household Chores Name Role Phone z(Retired) Lul CEJA, [place] Primary [facility] Provi taylor Unavailable McMorrow, Ace Unavailable [phone] Allergies Allergen (clinical drug ingredient) Drug/Non Drug Allergy documented on EMR Reaction Allergy Type Onset Date Status Aleve (uncoded) Unknown Allergy Acti ve Eggs (uncoded) Unknown Allergy Activ e Lactose (uncoded) Unknown Allergy Ac tive Red Beets (uncoded) Hives Allergy Active acetaminophen / oxycodone Percocet Alters brain function Drug Allergy Active Vicodin Unknown Drug Allergy Active olanzapine Zyprexa Unknown Drug Allergy Active hydrocodone Hydrocodone Unknown Drug Allergy Act romel olanzapine Olanzapine Unknown Drug Allergy Activ e metformin Metformin Unknown Drug Allergy Active Reason For Referral No Information Medications Medication SIG (Take, Route, Frequency, Duration) Notes Start Date End Date Status Fexofenadine HCl Act romel Amitriptyline HCl Ac tive VESIcare Active Neomycin Sulfate 500 MG 1 tablet Orally bid for 10 day(s) 05/20/2023 Active Fluoxetine Active Xanax Active Phentermine HCl Acti ve Meloxicam Active OTC/Vitamins Compounded Nerve Symptom Relief Lotion, Women's Vitamin, Vit D3, Vit B12, Fish Oil, Potassium Chloride, Hyaluronic Acid, Tylenol Active Furosemide Active Zolpidem Tartrate Ac tive Restasis Active QUEtiapine Fumarate Active rOPINIRole HCl Activ e Colestipol HCl Activ e Citracal + D Active Spironolactone Activ e Lyrica Active Immunizations Vaccine Route Administration Date Status Comme nts Influenza, seasonal, injecta ble, preservative free, 3 yrs and above Unknown 07/18/2018 Administered Influenza, seasonal, injecta ble, preservative free, 3 yrs and above Unknown 07/25/2019 Administered Pneumococcal polysaccharide PPV23 Unknown 08/28/2020 Ad ministered Social History Tobacco Use: Social History Observation Description Date Details (start date - stop date) Never Smoker NA - NA Tobacco Use/Smoking Question Answer Notes Are you a nonsmoker Problems Problem Type SNOMED Code ICD Code Onset Dates Problem Status W/U Status Risk Notes Problem 33886764 Other iron deficiency anemias (D50.8) Active confirmed Problem 021228131 Flatulence (R14.3) Active confirmed Problem Small bowel bacterial overgrowth syndrome (875368509) Small intestinal bacterial overgrowth (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 Problem Flatulence, eructation and gas pain (026888699) Bloating (R14.0) Active confirmed She has significant abdominal bloating and has been treated for SIBO several times in the past with good improvement. She recently finished the antibiotic regimen, but was unable to take it as prescribed because she forgot to take it with her on vacation. She had mild improvement, but is requesting another round of antibiotics. Problem History of polyp of colon (situation) (961443813) History of colon polyps (Z86.010) Active confirmed Her last colonoscopy in October 2019 revealed hemorrhoids and a 5 mm polyp. She was advised to follow-up in 5 years. Problem 30780323 Iron deficiency anemia (D50.9) Active confirmed She underwent upper endoscopy and colonoscopy in November of this year due to iron deficiency anemia. It was suspected her anemia was related to malabsorption of iron from her gastric bypass surgery and the small gastric erosion. She received an iron infusion and has been monitoring her blood counts every 3 months. Problem 301906282 Lactose intolerance (E73.9) Active confirmed She follows a dairy free diet. Problem 951461389 Abdominal bloating (R14.0) Active confirmed She complains today of abdominal bloating and gas she associates with SIBO. She was tested and treated several years ago for similar symptoms with Neomycin. Suspect this is the cause for her recent bloating. Unlikely considerations would be food intolerance, partial bowel obstruction, IBD, celiac disease, peptic ulcer, gastritis, or other. Problem Rectal pain (03944914) Rectal pain (K62.89) Active confirmed She has had tailbone pain for the last several months and has been sitting on a donut. As a result, this has caused increased pressure in her rectum. Her rectal exam today was unrevealing. 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 She does well on this medication and denies alarm features. She typically has a bowel movement every other day. Problem 409637738 Colonic diverticular disease (K57.30) Active confirmed Problem Acid reflux (248166026) Acid reflux (K21.9) Active confirmed She has occasional acid reflux, which she is typically able to control with Gaviscon as needed. Problem History of bypass of stomach (856844887) H/O gastric bypass (Z98.84) Active confirmed She is status post gastric bypass. Plan Of Treatment Pending Test Test Name Order Date IRON AND TOTAL IRON BINDING CAPACITY FERRITIN 02/08/2020 Initiate SIBO 01/26/2017 CBC With Differential/Platelet 0 Future Test Test Name Order Date CBC With Differential/Platelet 0 Insurance Providers Payer Name Payer Address Payer Phone Subscriber Number Group Number Insured Name Patient Relationship to Insured Coverage Start Date Coverage End Date Medicare E2 [address] [address] [place] [phone] [id number] [phone] [id number] Scott Garcia Self - patient is the insured [facility] [address] [place] [address] [id number] Arnie Garcia Spouse - patient is the spouse of the insured Medical (General) History Medical History History ICD Code GERD Hemorrhoids SIBO Lactose Intolerance Diverticulosis Colon Polyps Anemia Depression/Bipolar Osteo Arthritis Insomnia Reynaud's Syndrome Neuropathy Fibromyalgia Sleep Apnea/CPAP Surgical History Surgery Date(Month/Year) EGD 11/2019 Colonoscopy 11/2019 Gastric Bypass 2004 Cholecystectomy Total Right Hip Replacement 2016 Bilateral RPK Surgery 2007 Tummy Uvaldock 2007 Abdominoplasty 2006 Hysterectomy 1994 Bilateral Tubal Ligation 1982 Tonsillectomy and Adeniodectomy Bilateral Carpal Tunnel Release Adenoidectomy Bilateral Pistiform Extraction
--- OUTSIDE RECORDS SUMMARY | 2025-04-05 11:21 | XMS_ITS | Encounter Summary ---
Author Organization [facility] Address [address] [place] [address] Care Team Providers Care Financial Counselor Name Role Phone Noah Mccarty MD Primary Care Provider Enid Martin MD Unavailable Richard Rankin DPT Unavailable [phone] Padmini Turner DPT Unavailable Lissett Hernandez DPT Unavailable Zulay Ghotra DPT Unavailable [phone] Encounter Details Date Type Department Care Team (Late st Contact Info) Description 05/10/2023 Telephone [facility] [address] [facility] [address] [place] [address] Dennis Foster MD PhD [address] [place] [address] Social History Tobacco Use Types Packs/Day Years Used Date Smoking Tobacco: Never Smokeless Tobacco: Never AUDIT-C Answer Date Recorded Q1: How often do you have a drink containing alc ohol? 2-4 times a month 03/11/2023 Q2: How many drinks containi ng alcohol do you have on a typical day when you are drinking? 1 or 2 03/11/2023 Q3: How often do you have si x or more drinks on one occasion? Never 03/11/2023 Hunger Vital Sign Answer Date Recorded Within the past 12 months, y ou worried that your food would run out before you got the money to buy more. Never true 05/07/20 23 Within the past 12 months, t he food you bought just didn't last and you didn't have money to get more. 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 Author CCM Chronic Pain Care Plan Chronic Care Management No change(01/27 8:06 AM CDT) No Anny Goldstein, RN Note: Problem: Chronic Pain Goals: 1. Minimize further functional decline 2. Maximize quality of life 3. Control pain Strategies: - Activity/exercise program recommendation - Conservative stepwise pain medicine strategy with multi-disciplinary approach - Recommend healthy lifestyle strategies and compensatory methods as needed documented as of this encounter Visit Diagnoses Not on filedocumented in this encounter Care Teams Financial Counselor Relationship Specialty Start Date End Date Noah Mccarty MD [address] [place] [address] PCP - General 04/26/17 [place] [address] [place] [address] Surgeon Orthopedic Surgery 06/16/18 Richard Rankin DPT [address] [place] [address] Physical Therapist Physical Therapy 12/20/22 Padmini Turner, VAUGHNT [address] [facility] [address] [place], [place] [id number] Physical Therapist Physical Therapy 11/18/23 03/08/24 Lissett Hernandez DPT [address] [facility] [address] [place], [place] [id number] Physical Therapist Physical Therapy 03/09/24 03/09/24 Zulay Ghotra DPT [address] [place], [place] [id number] Referring Physician Physical Therapy 03/09/24 documented as of this encounter
[2025-04-05 11:33] LABS: Add Urine Microscopic? YES; Appearance Urine Clear (Clear); Bacteria Urine None Seen /hpf; Bilirubin Urine Negative (Negative); Blood Urine Negative (Negative); Color Urine Yellow (Yellow); Glucose Urine UA Negative (Negative); Ketones Urine Negative (Negative); Leukocyte Esterase Ur Trace LEU/UL (Negative); Need Manual Microscopic Reviewed; Nitrate Urine Negative (Negative); Non Pathogenic Casts 0-2; Protein Urine Negative (Negative); RBC Urine 0-2 /hpf (0-2); Specific Grav Ur 1.017 (1.001-1.035); Squamous Epithelial Cell Urine Moderate /hpf (Few); Urobilinogen Urine 0.2 mg/dL (<2.0); WBC Urine 0-5 /hpf (0-3)
[2025-04-05 11:39] LABS: Basophils Absolute Auto 0.1 K/mm3 (0.0-0.1); Basophils Percent Auto 0.6 % (0.2-1.2); Eosinophils Absolute Auto 0.3 K/mm3 (0-0.3); Eosinophils Percent Auto 4.1 % (0-4.4); Hematocrit 43.5 % (37.0-47.0); Hemoglobin 13.3 g/dL (12.0-15.0); Immature Granulocyte Absolute 0.03 K/mm3 (0.00-0.031); Immature Granulocyte Percent A 0.4 % (0-0.5); Lymphocytes Absolute Auto 2.19 K/mm3 (0.9-3.2); Lymphocytes Percent Auto 27.9 % (18.3-44.2); Mean Corpuscular HGB Conc 30.6 g/dl (32-36); Mean Corpuscular Hemoglobin 31.1 pg (26-34); Mean Corpuscular Volume 101.9 fl (80-100); Mean Platelet Volume 10.4 fl (7.4-10.4); Monocytes Absolute Auto 0.5 K/mm3 (0.1-0.6); Monocytes Percent Auto 6.6 % (2.6-8.5); Neutrophils Absolute Auto 4.8 K/mm3 (1.3-6.7); Neutrophils Percent Auto 60.4 % (45.5-73.1); Platelet Count Result 223 k/mm3 (150-375); Red Blood Count 4.27 M/mm3 (4.2-5.4); Red Cell Distribution Width 13.5 % (11.5-14.5); White Blood Count 7.9 K/mm3 (4.5-10.0)
[2025-04-05 11:46] LABS: Chloride 107 mmol/L (98-107)
[2025-04-05 11:47] LABS: Alanine Aminotransferase 12 U/L (6-35); Albumin Level 3.5 g/dL (3.5-5.1); Alkaline Phosphatase 93 U/L (38-126); Anion Gap 6 mmol/L (4-12); Aspartate Amino Transferase 29 U/L (14-36); Bilirubin,Total 0.2 mg/dL (0.2-1.3); Blood Urea Nitrogen 14 mg/dL (7-17); Calcium 8.7 mg/dL (8.4-10.2); Carbon Dioxide 28 mmol/L (22-30); Cholesterol 105 mg/dL (0-200); Estimated Glomerular Filt Rate > 60; Glucose 83 mg/dL (65-110); HDL Direct 55 mg/dL; Potassium 3.9 mmol/L (3.4-5.0); Sodium 141 mmol/L (137-145); Triglycerides 65 mg/dL (<150)
[2025-04-05 11:58] LABS: LDL Cholesterol Direct 30 mg/dL
[2025-04-05 12:18] LABS: Free T4 Free Thyroxine 0.97 ng/dL (0.78-2.19); Vitamin D 25 Hydroxy 29.2 ng/mL
[2025-04-05 12:40] LABS: Hemoglobin A1C 5.5 % (<5.7)
[2025-04-05 12:51] LABS: Folic Acid 14.9 ng/mL (2.76->20)
[2025-04-05 12:52] LABS: Vitamin B12 > 1000.0 pg/mL (239-931)
[2025-04-06 07:39] LABS: C-Peptide. 1.96 ng/mL (0.80-3.85)
[2025-04-09 22:04] LABS: Insulin Level Total. 4.6 uIU/mL
== END 2025-04-05 10:30 | disposition home or self-care (01) ==
PROVIDERS: PCP Internal Medicine; Visit Provider Internal Medicine
DX: S09.90XA Unspecified injury of head, initial encounter (principal); J32.0 Chronic maxillary sinusitis; M50.30 Other cervical disc degeneration, unspecified cervical region; E78.5 Hyperlipidemia, unspecified; R73.09 Other abnormal glucose; E55.9 Vitamin D deficiency, unspecified; R41.3 Other amnesia; E53.8 Deficiency of other specified B group vitamins; W19.XXXA Unspecified fall, initial encounter; Z68.30 Body mass index [BMI] 30.0-30.9, adult; Z98.84 Bariatric surgery status; Z79.899 Other long term (current) drug therapy; Z13.1 Encounter for screening for diabetes mellitus; Z13.29 Encounter for screening for other suspected endocrine disorder
CPT/HCPCS: 36415; 70450; 72125; 80053; 80061; 81001; 82306; 82607; 82746; 83036; 83525; 84439; 84443; 84681; 85025

== ENCOUNTER 2025-04-13 16:03 | Outpatient (CLI) | payer MEDICARE, OTHER, SELFPAY ==
--- NOTE | ~2025-04-13 | CT_ITS ---
Noncontrast CT scan of the paranasal sinuses INDICATION: Chronic right maxillary sinusitis TECHNIQUE: Computed tomography (CT) of the paranasal sinuses was performed without intravenous contra st. The dose-length product (DLP) was 191.18 mGy-cm. COMPARISON: None FINDINGS: There is poor pneumatization of the right frontal sinus. There is normal development and pn eumatization of the remaining paranasal sinuses. There is extensive opacification of the right maxill brent sinus, some chronic opacification with any, compatible with chronic right maxillary sinusitis. Re maining paranasal sinuses are clear. The left ostiomeatal complex is patent. Visualized soft tissues are unremarkable. IMPRESSION: Chronic right maxillary sinusitis, as above. Poor development/pneumatization of the right frontal sinus. Reviewed, dictated and finalized at [facility].
== END 2025-04-13 16:04 | disposition home or self-care (01) ==
PROVIDERS: PCP Internal Medicine; Visit Provider Otolaryngology
DX: J32.0 Chronic maxillary sinusitis (principal)
CPT/HCPCS: 70486

== ENCOUNTER 2025-04-19 07:45 | Outpatient (CLI) | payer MEDICARE, OTHER, SELFPAY ==
--- OUTSIDE RECORDS SUMMARY | 2025-04-19 07:49 | XMS_ITS | Encounter Summary ---
Author Organization [facility] Healthcare Address [address] [place] [address] Care Team Providers Care English And Reading Instructor Name Role Phone Noah Mccarty MD Primary Care Provider Enid Martin MD Unavailable [phone] Richard Rankin DPT Unavailable [phone] Padmini Turner DPT Unavailable Lissett Hernandez DPT Unavailable [phone] Zulay Ghotra DPT Unavailable [phone] Encounter Details Date Type Department Care Team (Late st Contact Info) Description 05/10/[address] 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 Gender Identity Female 05/24/2018 1:36 PM CDT [...] on filedocumented in this encounter Care Teams English And Reading Instructor Relationship Specialty Start Date End Date Noah Mccarty MD [address] [facility] [address] [place] [address] PCP - General 04/26/17 [place] [address] [place] [address] Surgeon Orthopedic Surgery 06/16/18 Richard Rankin DPT [address] [facility] [address] [place] [address] Physical Therapist Physical Therapy 12/20/22 Padmini Turner, VAUGHNT [address] [facility] [address] [place], [place] [id number] Physical Therapist Physical Therapy 11/18/23 03/08/24 Lissett Hernandez DPT [address] [facility] [address] [place], [place] [id number] Physical Therapist Physical Therapy 03/09/24 03/09/24 Zulay Ghotra DPT [address] [place], [place] [id number] Referring Physician Physical Therapy 03/09/24 documented as of this encounter
--- OUTSIDE RECORDS SUMMARY | 2025-04-19 07:49 | XMS_ITS | Clinical Summary ---
Author Organization [facility] Address [address] [place] [address] Care Team Providers Care Cash Room Clerk Name Role Phone Noah Mccarty MD Primary Care Provider Enid Martin MD Unavailable Richard Rankin DPT Unavailable [phone] Zulay Ghotra DPT Unavailable Allergies Active Allergy Reactions Criticality Noted Date [...] 1 tablet/capsule (100 mg total) by mouth covering machine operator before breakfast Active QUEtiapine (SEROquel) 100 mg [...] ORAL)Indications:h ealth Take 1 capsule by mouth covering machine operator before breakfast Active fluorometholone (FML) 0.1 % [...] one health Take 4 capsules by mouth covering machine operator before breakfast Active solifenacin (VESIcare) 5 mg [...] (11/27/2021): Added automatically from request for surgery [id number] Abdominal bloating 11/07/2021 Diverticular disease of colon 11/07/2021 Flatulence 11/07/2021 Lactose intolerance 11/07/2021 Iron deficiency anemia 11/07/2021 Intestinal malabsorption 11/07/2021 Neuropathy of right ulnar nerve at wrist 021 Overview (10/03/2021): Added automatically from request for surgery [id number] Pelvic pain 06/14/2017 Pain in wrist 05/06/2017 History of artificial joint 05/20/2016 Osteoarthritis of hip 02/24/2016 Family history of CREST syndrome Encounters Date Type Department Care Team Description 01/23/2025 1:00 PM CDT Telemedicine [facility] Pain Management [address] [place] [id number] Felton Gabriel, PhD Major depressive disorder, recurrent episode, moderate (HCC) (Primary Dx); Other chronic pain from Last 3 Months Immunizations Immunization Administration Dates Next Due Influenza, Trivalent, IM (MDV) 07/18/2016 Influenza, Trivalent, Preser vative Free, Intramuscular 07/25/2019,07/18/2018,07/23/2015 Influenza, Unspecified 07/11/2021 Surgical History Surgery Date Site/Laterality Comments [place] TONSILLECTOMY PRIMARY/SEC ONDARY <AGE 12 10/18/1964 - 10/17/1965 HYSTERECTOMY 10/18/1993 - 10/17/1994 GASTRIC BYPASS 10/18/2003 - 10/17/2004 [place] ARTHRP ACETBLR/PROX FEM P ROSTC AGRFT/ALGRFT 10/18/2015 [...] on file 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 Gender Identity Female 05/24/2018 1:36 PM CDT [...] as needed Medical Devices Implanted Type Area Mandarin Tutor Device Identifier Shelf Expiration Date Model / Serial / Lot [employer] Axium Slimtip 1mm 50cm 4 Electrode Lead Front Load Delivery 5mm [id number] - [id number] - [id number] Implanted:Qty: 1 on 08/31/2023 by Dennis Foster MD PhD at [facility] Lead N/A: Epidural Space [employer] 07/22/2024 [id number] / [id number] / [employer] Axium Slimtip 1mm 50cm 4 Electrode Lead Front Load Delivery 5mm [id number] - [id number] - [id number] Implanted:Qty: 1 on 08/31/2023 by Dennis Foster MD PhD at [facility] Lead N/A: Epidural Space [employer] 11/05/2024 [id number] / [id number] / [employer] Axium Slimtip 1mm 50cm 4 Electrode Lead Front Load Delivery 5mm [id number] - [id number] - [id number] Implanted:Qty: 1 on 08/31/2023 by Dennis Foster MD PhD at [facility] Medicine [facility] Lead N/A: Epidural Space [employer] 03/10/2025 [id number] [id number] / [id number] / Rtha-05/07/2005 Implanted:05/07/20 (Quantity not on file) Right: Hip [employer] [id number] Seprafilm 6x5in Barrier Adhesion Sterile Disposable Latex Free - [id number] Implanted:Qty: 1 on 10/22/2021 by Ira Marsh MD at [facility] Right: Wrist [facility] Justin [id number] 01/08/2024 [id number] / / [id number] [employer] [id number] Seprafilm 6x5in Barrier Adhesion Sterile Disposable Latex Free - [id number] Implanted:Qty: 1 on 12/09/2021 by Ira Marsh MD at [facility] Advanced [facility] Left: Wrist [facility] Justin [id number] 01/08/2024 [id number] / / [id number] 2 [employer] Axium Slimtip 1mm 50mm Front Load 4 Electrode 5mm Space Lead [id number] - [id number] - [id number] Implanted:Qty: 1 on 05/10/2023 by Dennis Foster MD PhD at [facility] [employer] [id number] 06/09/2024 [id number] 50A / [id number] / [employer] Axium Slimtip 1mm 50mm Front Load 4 Electrode 5mm Space Lead [id number] - [id number] - [id number] Implanted:Qty: 1 on 05/10/2023 by Dennis Foster MD PhD at [facility] [employer] [id number] 08/30/2024 [id number] [id number] / [id number] / [employer] Axium Slimtip 1mm 50mm Front Load 4 Electrode 5mm Space Lead [id number]-2/24/2 023 Implanted:05/10/20 by Dennis Foster MD PhD (Quantity not on file) N/A: Back [employer] [id number] 08/30/2024 [id number] 50A / [id number] / [employer] Axium Slimtip 1mm 50mm Front Load 4 Electrode 5mm Space Lead [id number] - [id number] - [id number] Implanted:Qty: 1 on 08/06/2023 by Dennis Foster MD PhD at [facility] [employer] [id number] 07/07/2024 [id number] 50A / [id number] / [employer] Neurostimulator Pro[employer] Drg Ipg W Iphone Pt Controller [id number] - [id number] - [id number] Implanted:Qty: 1 on 09/02/2023 by Dennis Foster MD PhD at [facility] N/A: Epidural Space [employer] [id number] [id number] / [id number] / Insurance Resource [employer]uru [facility] MEDICARE COMMERCIAL GENERIC MEDICARE Resource [employer] LIFE MEDICARE FOR LIFE Advance Directives For more information, please contact: [phone] Documents on File Type Date Recorded Patient Police Booking Officer Expl anation ADVANCE DIRECTIVE 09/07/2023 12:37 AM MARIA T ING WILL ADVANCE DIRECTIVE 09/07/2023 12:37 AM POW ER OF LAN MANAGER-MEDICAL * Full Code (Latest Code Status on File) Date Activated Date Inactivated Comments 10/22/2021 7:28 PM 10/23/2021 2:52 PM Care Teams Cash Room Clerk Relationship Specialty Start Date End Date Noah Mccarty MD [address] [facility] [address] [place] [address] PCP - General 04/26/17 [place] [address] [place] [address] Surgeon Orthopedic Surgery 06/16/18 iRchard Rankin DPT [address] [place] [address] Physical Therapist Physical Therapy 12/20/22 Zulay Ghotra DPT [address] [facility] [address] [place] [address] Referring Physician Physical Therapy 03/09/24
--- OUTSIDE RECORDS SUMMARY | 2025-04-19 07:49 | XMS_ITS | Clinical Summary ---
Author Organization [facility] Address [address] [place] [address] Care Team Providers Care Farmworker Name Role Phone Marcos Campbell MD Primary [...] (04/27/2024): Added automatically from request for surgery [id number] Diverticular disease of colon 11/07/2021 Intestinal malabsorption 11/07/2021 Iron deficiency anemia 11/07/2021 Lactose intolerance 11/07/2021 Neuropathy of right ulnar nerve at wrist 021 Overview (04/27/2024): Added automatically from request for surgery [id number] Pain in wrist 05/06/2017 History of artificial joint 05/20/2016 Osteoarthritis of hip 02/24/2016 Encounters Date Type Department Care Team Description 04/10/2025 External Device Data STL ABSTRACTION Provider, Abstract 04/10/2025 External Device Data STL ABSTRACTION Provider, Abstract 04/06/2025 Orders Only [facility] [address] [place] [address] Dennis Foster MD 04/03/2025 11:30 AM CDT Office Visit [facility] [place] [address] [address] [place] [address] Rende, Jenni, DICE TABLE OPERATOR Complex regional pain syndrome type 2 of right lower extremity (Primary Dx); Ischial bursitis, unspecified laterality 03/13/2025 External Device Data STL ABSTRACTION Provider, Abstract 03/08/2025 2:30 PM CDT Office Visit [facility] [address] [place] [address] [place] [address] Jenni Tobar, DICE TABLE OPERATOR Complex regional pain syndrome type 2 of right lower extremity (Primary Dx); Falls 03/07/2025 External Device Data STL ABSTRACTION Provider, Abstract 03/06/2025 External Device Data STL ABSTRACTION Provider, Abstract 03/05/2025 Abstract [facility] [address] [place] [address] Dennis Foster MD 03/01/2025 9:00 AM CDT - 03/01/2025 9:55 AM CDT Surgery [facility] Operating Room [address] [facility] [address] [place] [address] Dennis Foster MD SPINAL CORD DORSAL COLUMN STIMULATOR INSERTION 03/01/2025 8:05 AM CDT Ancillary Procedure [facility] Operating Room [address] [facility] [address] [place] [address] Dennis Foster MD 03/01/2025 7:49 AM CDT - 03/01/2025 10:10 AM CDT Hospital Encounter [facility] Pre Post [address] [facility] [address] [place] [address] Dennis Foster MD Causalgia of right lower extremity Discharge Disposition: Home or Self Care 02/20/2025 Abstract [facility] [address] [place] [address] [place] [address] Dennis Foster MD 02/20/2025 Orders Only [facility] [place] [address] [place] [address] Dennis Foster MD 02/12/2025 Telephone [facility] [address] [place] [address] [place] [address] Dennis Foster MD NEEDS PT ORDERS FOR [facility] PT IN [place], [place] 01/29/2025 9:10 AM CDT - 01/29/2025 9:22 AM CDT Surgery [facility] Operating Room [address] [facility] [address] [place] [address] Dennis Foster MD BURSA TROCHANTERIC STEROID INJECTION BILATERAL 01/29/2025 8:25 AM CDT Ancillary Procedure [facility] Operating Room [address] [facility] [address] [place] [address] Dennis Foster MD 01/29/2025 8:15 AM CDT - 01/29/2025 10:37 AM CDT Hospital Encounter [facility] Pre Post 137[address] [facility] [address] [place] [address] Dennis Foster MD Bursitis of other bursa of hip, unspecified laterality Discharge Disposition: Home or Self Care 01/29/2025 Travel 01/25/2025 Telephone [facility] [address] [place] [address] [place] [address] Dennis Foster MD Medication Question 01/18/2025 Travel 01/18/2025 Orders Only [facility] [place] [address] [place] [address] Dennis Foster MD from Last 3 Months Immunizations Immunization Administration [...] PM CDT 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 Gender Identity Female 04/30/2024 7:27 PM CDT [...] Department Care Team (Latest Contact Info) Description 05/03/2025 1:00 PM CDT Office Visit [facility] [address] [place] [address] Jenni Tobar NP [address] [place] [address] [address] [place] [address] 05/15/2025 7:30 AM CDT Hospital Encounter [facility] Operating Room [address] [facility] [address] [place] [address] Dennis Foster MD [address] [place] [address] [address] [place] [address] Bursitis of both hips, unspecified bursa 05/15/2025 7:30 AM CDT - 05/15/2025 7:42 AM CDT Surgery [facility] Operating Room [address] [facility] [address] [place] [address] Dennis Foster MD [address] [place] [address] BURSA TROCHANTERIC STEROID INJECTION Scheduled Procedures Name [...] of 2 - PCV) 02/11/2023 02/11/2022, 08/28/2020 COVID-19 Vaccine (2 - 2023-2 5 season) 2024 09/12/2021 INFLUENZA VACCINE (#1) 2025 2, 07/25/2019, 07/18/2018, Additional history exists RSV VACCINE (60+ or ) (1 - 1-dose 75+ series) 2032 Medical Devices Implanted Type Area Ore Fielder Device Identifier Shelf Expiration Date Model / Serial / Lot Lead Vectris 1x8 60cm Trial [facility] [id number] - [id number] Implanted:Qty: 1 on 03/01/2025 by Dennis Foster MD at [facility] Lead N/A: Back [employer]- NEUROLOGIC TECH 01/08/2029 [id number] / / [id number] Lead Vectris 1x8 60cm Trial [facility] [id number] - [id number] Implanted:Qty: 1 on 03/01/2025 by Dennis Foster MD at [facility] Lead N/A: Back [employer]- NEUROLOGIC TECH 01/26/2029 [id number] / / [id number] Neuro Stimulator Neuro Stimulator CaseRev SPINAL [employer] [id number] / / Description:[email or web address] [email or web address] [email or web address]-[email or web address].html [place] Injex Bi-Wing [id number] - [id number] Implanted:Qty: 1 on 03/01/2025 by Dennis Foster MD at [facility] Other N/A: Back [employer]- NEUROLOGIC TECH 12/28/2028 [id number] / / [id number] Total Hip Replacement Right: Hip Procedures Procedure Name Priority Date/Time Associated Diagnosis Comments XR FLUORO LESS THAN 1 HOUR Routine 03/01/2025 9:19 AM CDT OH ELEC LEANDRO IMPLT NPGT SMPL SP/PN NPGT PRGRMG 03/01/2025 9:00 AM CDT Causalgia of right lower extremity OH PRQ IMPLTJ NSTIM ELECTRODE ARRAY EPIDURAL 03/01/2025 9:00 AM CDT Causalgia of right lower extremity XR FLUORO LESS THAN 1 HOUR Routine 01/29/2025 9:34 AM CDT CHG FLUOROSCOPIC GUIDANCE NEEDLE PLACEMENT ADD ON 01/29/2025 9:10 AM CDT Bursitis of other bursa of hip, unspecified laterality OH ARTHROCENTESIS ASPIR&/INJ MAJOR JT/BURSA W/O US 01/29/2025 [...] A AND B FOR LIFE Care Teams Farmworker Relationship Specialty Start Date End Date Marcos Campbell MD [address] [place] [address] PCP - General Internal Medicine 04/03/25
--- OUTSIDE RECORDS SUMMARY | 2025-04-19 07:49 | XMS_ITS | Encounter Summary ---
Author Organization [facility] Address [address] [place] [address] Phone Care Team Providers Care Shift Nurse Manager Name Role Phone Noah Mccarty MD Primary Care Provider Enid Martin MD Unavailable Richard Rankin DPT Unavailable [phone] Padmini Turner DPT Unavailable [phone] Lissett Hernandez DPT Unavailable [phone] Zulay Ghotra DPT Unavailable [phone] Encounter Details Date Type Department Care Team (Late st Contact Info) Description 12/29/2022 Documentation [facility] [address] 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 [address] [facility] [place] [address] PCP - General 7/10/17 [place] [address] [place] [address] Surgeon Orthopedic Surgery 06/16/18 Richard Rankin, DPT [address] [place] [address] Physical Therapist Physical Therapy 12/20/22 Padmini Turner, DPT [address] [facility] [address] [place] [address] Physical Therapist Physical Therapy 11/18/23 03/08/24 Lissett Hernandez DPT [address] [facility] [address] [place] [address] Physical Therapist Physical Therapy 03/09/24 03/09/24 Zulay Ghotra, DPT [address] [facility] [address] [place] [address] Referring Physician Physical Therapy 03/09/24 documented as of this encounter
--- OUTSIDE RECORDS SUMMARY | 2025-04-19 07:49 | XMS_ITS | Continuity of Care Document ---
Author Organization [facility] Address [address] [id number] Care Team Providers Care Cigarette Vendor Name Role Phone Noah Mccarty Primary Care Physician [phone] Encounter [facility] Financial Number [id number] Date(s): 04/18/25 - 04/18/25 [facility] Neurology [address] [place] [id number] Discharge Disposition: Home or Self Care Attending Physician: Kyra Marcelo NP Encounter Type: Clinic Allergies, Adverse Reactions, Alerts Substance Criticality Severity Reaction Reaction Severity Status Aleve Anger Active Vicodin Active ZyPREXA 1 Active Red food dye Active HYDROcodone Active metFORMIN Active 1nightmares Assessment and Plan Future Appointments Appointment Date:04/26/2025 03:30:00 PM Scheduled Provider:Kyra Marcelo NP Location: Neurology Appointment Type:NN EP Established Patient Medications acetaminophen-codeine 300 mg-60 mg oral tablet (Not recommended for <18 years old) TAKE 1 TABLET BY MOUTH EVERY 4 HOURS NEEDED FOR PAIN, MODERATE. Start Date: 11/07/24 Status: Ordered Repeat number: 1 amitriptyline 100 mg oral tablet 2 tablet(s), Oral, HS, 180 tablet(s), 3, 3, Route to Pharmacy Electronically, [facility], [id number], 158, cm, 02/08/24 15:03:00 CDT, Height, 95.7, kg, 02/08/24 15:03:00 CDT, Weight Start Date: 06/07/24 Status: Ordered Quantity: 180.0 Unit: Repeat number: 4 AMITRIPTYLINE,CLONIDINE,GABAPENTIN,KETAMINE,KETOPROFEN,LIDOCAINE 1,0.2,10,5,10,5% #[id number] AMITRIPTYLINE,CLONIDINE,GABAPENTIN,KETAMINE,KETOPROFEN,LIDOCAINE 1,0.2,10,5,10,5% #[id number], APPLY TORIGHT FOOT UP TO FOUR TIMES A DAY NEEDED FOR PAIN (#2 WP-1) Start Date: 11/07/24 Status: Ordered Repeat number: 1 Centrum Women[facility] 0 Start Date: 01/17/19 Status: Ordered Repeat number: 1 colestipol 1 g oral tablet 2 gm, 2 tablet(s), Oral, bid, 120 tablet(s), Tablet(s), 0 Start Date: 06/07/24 Status: Ordered Quantity: 120.0 Unit: Repeat number: 1 CYCLOBENZAPRINE 5 MG TABLET CYCLOBENZAPRINE 5 MG TABLET Start Date: 11/07/24 Status: Ordered Repeat number: 1 D3 1000 oral tablet 2,000 unit(s), 2 tablet(s), 0 Start Date: 01/17/19 Status: Ordered Repeat number: 1 doxycycline hyclate 100 mg oral tablet 0 Start Date: 06/07/24 Status: Ordered Repeat number: 1 Fergon 240 mg (27 mg elemental iron) oral tablet 240 mg, 1 tablet(s), Oral, tid with meals, 90 tablet(s), Tablet(s), 0 Start Date: 11/06/20 Status: Ordered Quantity: 90.0 Unit: Repeat number: 1 Fish Oil 1000 mg oral capsule 2,000 mg, 2 capsule(s), Oral, daily, Capsule(s), 0 Start Date: 01/17/19 Status: Ordered Repeat number: 1 furosemide 20 mg oral tablet 20 mg, 1 tablet(s), Oral, bid, Tablet(s), 0 Start Date: 12/12/19 Status: Ordered Repeat number: 1 Lyrica CR 165 mg oral tablet, extended release 165 mg, 1 tablet(s), Oral, tid, 270 tablet(s), 1, 1, Route to Pharmacy Electronically, [facility], [id number], 158, cm, 11/07/24 12:26:00 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 Medication Citrical D 1200 magic- daily Start Date: 12/12/19 Status: Ordered Repeat number: 1 PROzac 40 mg oral capsule 40 mg, 1 capsule(s), Oral, daily, 30 capsule(s), Capsule(s), 0 Start Date: 01/17/19 Status: Ordered Quantity: 30.0 Unit: Repeat number: 1 Qsymia 15 mg-92 mg oral capsule, extended release 1 capsule(s), TAKE 1 CAPSULE BY MOUTH ONCE DAILY IN THE MORNING Start Date: 06/07/24 Status: Ordered Repeat number: 1 Restasis 0.05% ophthalmic emulsion 1 drop(s), Both eyes, bid, 30 dose(s), Emulsion, 0 Start Date: 01/17/19 Status: Ordered Quantity: 30.0 Unit: Repeat number: 1 rosuvastatin 10 mg oral tablet 10 mg, 1 tablet(s), Oral, qhs, 30 tablet(s), Tablet(s), 0 Start Date: 06/07/24 Status: Ordered Quantity: 30.0 Unit: Repeat number: 1 spironolactone 25 mg oral tablet 25 mg, 1 tablet(s), Oral, daily, 30 tablet(s), Tablet(s), 0 Start Date: 02/08/24 Status: Ordered Quantity: 30.0 Unit: Repeat number: 1 tiZANidine 4 mg oral tablet TAKE 1/2-1 TABLET BY MOUTH EVERY 6-8 HOURS NEEDED NOT TO EXCEED 3 DOSES IN 24 HOURS Start Date: 06/07/24 Status: Ordered Repeat number: 1 valACYclovir as needed, 0 Start Date: 01/17/19 Status: Ordered Repeat number: 1 VESIcare 5 mg oral tablet 5 mg, 1 tablet(s), Oral, daily, 30 tablet(s), Tablet(s), 0 Start Date: 12/12/19 Status: Ordered Quantity: 30.0 Unit: Repeat number: 1 Vitamin B12 1000 mcg oral tablet 1,000 mcg, 1 tablet(s), Oral, daily, 30 tablet(s), Tablet(s), 0 Start Date: 12/12/19 Status: Ordered Quantity: 30.0 Unit: Repeat number: 1 Xanax 0.5 mg oral tablet 0.25 mg, 0.5 tablet(s), Oral, daily, PRN, Tablet(s), 0, anxiety Start Date: 12/12/19 Status: Ordered Repeat number: 1 Problem List Condition Confirmation Course Effective Dates Status H ealth Status Informant Anxiety Confirmed Active Chronic insomnia Confirmed Active CRPS (complex regional pain syndrome), lower limb Confirmed Active Depressed Confirmed Active GERD - Gastro-esophageal reflux disease Confirmed Active S/P insertion of spinal cord stimulator Confirmed Active H/O gastric bypass Confirmed Active High cholesterol Confirmed Active Memory change Confirmed Active MILI (obstructive sleep apnea) Confirmed Active Osteopenia Confirmed Active Well woman exam Confirmed Active Periodic limb movements of sleep Confirmed Active Polyneuropathy Confirmed Active Raynaud disease Confirmed Active RLS (restless legs syndrome) Confirmed Active Sinus tachycardia Confirmed Active Vertigo Confirmed Active Procedures Procedure Date Related Diagnosis Body Site Status Dorsal root ganglion stimulator 08/31/23 Completed CARPAL TUNNEL SURGERY Com pleted gastric bypass 2003 Compl eted hysterectomy 1994 Complet ed R & L pisiform xtraction 2016, 2017 Completed R total hip replacement 2015 Completed REMOVAL OF TONSILS Comple fifi RKP 2006 Completed tubal ligation Completed nicho wild 2006 Completed Social History Social History Type Response Alcohol Never alcohol user Substance Abuse Never drug user Smoking Status Never smoker;Never; Tobacco Cessation Counseling Requested N/A entered on: 02/18/23 Sex Sex Representation Female (finding) Note * [facility] Weatherization Coordinator: PERFORM Event Display: ROI_Correspondence Authored Date: [id number] * Event Display: ROI_Correspondence * Event Display: ROI_Correspondence * Event Display: Patient Provided Clipboard Authored Date: [id number] Patient Care team information Care Team Personnel Name: Miladis Arcos MD Position: Physician - Sleep Medicine Member Role: Specialist Physician Address: [address] [place] [address] [facility] [place] [address] Telecom: Name: Yumiko Herrera MD Position: Physician - Neurology Member Role: Specialist Physician Address: [address] [facility] [address] [place], [place] [id number] [place] Telecom: Name: Adrienne Hernandez MD Position: Physician - Neurology Member Role: Specialist Physician Address: [address] [facility] [address] [place] [address] [place] Telecom: Name: Noah Mccarty M.D. Member Role: Primary Care Physician Address: [address] [facility] [address] [place], [place] [address] Telecom: Name: Kyra Marcelo RADIO TIME BUYER Position: AMB RADIO TIME BUYER/PA Med Service: [facility] Author Cigarette Vendor Role: Attending Physician Address: [address] [facility] [address] [place] [address] Telecom: Care Team Related Persons Name: BHAVANI BILLS Name: ABI BILLS Insurance Providers Guarantor name: JULIAN BILLS Health Plan Information #: 1 Payer: Medicare Payer Identifier: [id number] Member Number: [id number] Group Number: Subscriber Identifier: [id number] Relationship to Subscriber: self Coverage Type: MEDICARE Coverage Verification Date: 25 Telecom: NA Address: [address] [id number] [facility] Plan Information #: 2 Payer: Medicare Supplement Payer Identifier: NA Member Number: [id number] Group Number: Subscriber Identifier: [id number] Relationship to Subscriber: NA Coverage Type: PRIVATE HEALTH INSURANCE Coverage Verification Date: Telecom: Address: [address] [id number]
--- OUTSIDE RECORDS SUMMARY | 2025-04-19 07:49 | XMS_ITS | Referral Summary ---
Author Organization [facility] Address [address] [place] [address] Care Team Providers Care Field Sales Associate Name Role Phone Noah Mccarty MD Primary Care Provider Enid Martin MD Unavailable Richard Rankin DPT Unavailable Zulay Ghotra DPT Unavailable [phone] Encounters Date Type Department Care Team Description 01/23/2025 1:00 PM CDT Telemedicine [facility] Pain Management [address] [place] [address] Felton Gabriel, PhD Major depressive disorder, recurrent [...] 1 tablet/capsule (100 mg total) by mouth heat pump installer before breakfast Active QUEtiapine (SEROquel) 100 mg [...] ORAL)Indications:h ealth Take 1 capsule by mouth heat pump installer before breakfast Active fluorometholone (FML) 0.1 % [...] one health Take 4 capsules by mouth heat pump installer before breakfast Active solifenacin (VESIcare) 5 mg [...] (11/27/2021): Added automatically from request for surgery [id number] Abdominal bloating 11/07/2021 Diverticular disease of colon 11/07/2021 Flatulence 11/07/2021 Lactose intolerance 11/07/2021 Iron deficiency anemia 11/07/2021 Intestinal malabsorption 11/07/2021 Neuropathy of right ulnar nerve at wrist 021 Overview (10/03/2021): Added automatically from request for surgery [id number] Pelvic pain 06/14/2017 Pain in wrist 05/06/2017 [...] on file Legal Sex Female 7:08 AM UNDERGRADUATE INTERN Gender Identity Female 05/24/2018 1:36 PM CDT [...] as needed Medical Devices Implanted Type Area Sole Cementer Device Identifier Shelf Expiration Date Model / Serial / Lot [employer] Axium Slimtip 1mm 50cm 4 Electrode Lead Front Load Delivery 5mm [id number] - [id number] - [id number] Implanted:Qty: 1 on 08/31/2023 by Dennis Foster MD PhD at [facility] Lead N/A: Epidural Space [employer] 07/22/2024 [id number] / [id number] / [employer] Axium Slimtip 1mm 50cm 4 Electrode Lead Front Load Delivery 5mm [id number] - [id number] - [id number] Implanted:Qty: 1 on 08/31/2023 by Dennis Foster MD PhD at [facility] Lead N/A: Epidural Space [employer] 11/05/2024 [id number] 50A / [id number] / [employer] Axium Slimtip 1mm 50cm 4 Electrode Lead Front Load Delivery 5mm [id number] - [id number] - [id number] Implanted:Qty: 1 on 08/31/2023 by Dennis Foster MD PhD at [facility] Lead N/A: Epidural Space [employer] 03/10/2025 [id number] 50A / [id number] / Rtha-05/07/2005 Implanted:05/07/20 05 (Quantity not on file) Right: Hip [employer] [id number] Seprafilm 6x5in Barrier Adhesion Sterile Disposable Latex Free - [id number] Implanted:Qty: 1 on 10/22/2021 by Ira Marsh MD at [facility] Right: Wrist [facility] [id number] 01/08/2024 [id number] / / [id number] [employer] [id number] Seprafilm 6x5in Barrier Adhesion Sterile Disposable Latex Free - [id number] Implanted:Qty: 1 on 12/09/2021 by Ira Marsh MD at [facility] Left: Wrist [facility] [id number] 01/08/2024 [id number] / / [id number] [employer] Axium Slimtip 1mm 50mm Front Load 4 Electrode 5mm Space Lead [id number] - [id number] - [id number] Implanted:Qty: 1 on 05/10/2023 by Dennis Foster MD PhD at [facility] [employer] [id number] 06/09/2024 [id number] 50A / [id number] / [employer] Axium Slimtip 1mm 50mm Front Load 4 Electrode 5mm Space Lead [id number] - [id number] - [id number] Implanted:Qty: 1 on 05/10/2023 by Dennis Foster MD PhD at [facility] [employer] [id number] 08/30/2024 [id number] 50A / [id number] / [employer] Axium Slimtip 1mm 50mm Front Load 4 Electrode 5mm Space Lead [id number]/2 [id number] Implanted:05/10/20 by Dennis Foster MD PhD (Quantity not on file) N/A: Back [employer] [id number] 08/30/2024 [id number]- 50A / [id number] / [employer] Axium Slimtip 1mm 50mm Front Load 4 Electrode 5mm Space Lead [id number] - [id number] - [id number] Implanted:Qty: 1 on 08/06/2023 by Dennis Foster MD PhD at [facility] [employer] [id number] 07/07/2024 [id number]- 50A / [id number] / [employer] Neurostimulator Proclaim Drg Ipg W Iphone Pt Controller [id number] - [id number] - [id number] Implanted:Qty: 1 on 09/02/2023 by Dennis Foster MD PhD at [facility] N/A: Epidural Space [employer] [id number] / [id number] / [place] [id number] [employer] MEDICARE COMMERCIAL GENERIC MEDICARE [employer] [place] [address] MEDICARE FOR LIFE Advance Directives For more information, please contact: [phone] Documents on File Type Date Recorded Patient Pickle Solution Maker Expl anation ADVANCE DIRECTIVE 09/07/2023 12:37 AM MARIA T ING WILL ADVANCE DIRECTIVE 09/07/2023 12:37 AM POW ER OF ADMIN ASST-MEDICAL * Full Code (Latest Code Status on File) Date Activated Date Inactivated Comments 10/22/2021 7:28 PM 10/23/2021 2:52 PM Care Teams Field Sales Associate Relationship Specialty Start Date End Date Noah Mccarty MD [address] [facility] [address] [place] [address] PCP - General 04/26/17 [place] [address] [place] [address] Surgeon Orthopedic Surgery 06/16/18 Richard Rankin DPT [address] [place] [address] Physical Therapist Physical Therapy 12/20/22 Zulay Ghotra DPT [address] [place] [address] Referring Physician Physical Therapy 03/09/24
== END 2025-04-19 07:46 | disposition home or self-care (01) ==
LOC: ANHAUDIO 07:46
PROVIDERS: PCP Internal Medicine; Visit Provider Otolaryngology
DX: H90.6 Mixed conductive and sensorineural hearing loss, bilateral (principal); H93.13 Tinnitus, bilateral; J32.0 Chronic maxillary sinusitis
CPT/HCPCS: 92557; 92567

== ENCOUNTER 2025-04-24 01:03 | Day surgery (SDC) | payer MEDICARE, OTHER, SELFPAY ==
[2025-04-02 11:30] VITALS: BMI 34.7
--- OUTSIDE RECORDS SUMMARY | 2025-04-24 01:07 | XMS_ITS | Referral Summary ---
Author Organization [facility] Address [address] [place] [address] Care Team Providers Care Halal Butcher Name Role Phone Noah Mccarty MD Primary Care Provider Enid Martin MD Unavailable Richard Rankin DPT Unavailable [phone] Zulay Ghotra DPT Unavailable Encounters Date Type Department Care Team Description 01/23/2025 1:00 PM CDT Telemedicine [facility] [address] [place] [id number] Felton Gabriel, PhD Major depressive disorder, recurrent [...] 1 tablet/capsule (100 mg total) by mouth train control technician before breakfast Active QUEtiapine (SEROquel) 100 mg [...] ORAL)Indications:h ealth Take 1 capsule by mouth train control technician before breakfast Active fluorometholone (FML) 0.1 % [...] one health Take 4 capsules by mouth train control technician before breakfast Active solifenacin (VESIcare) 5 mg [...] (11/27/2021): Added automatically from request for surgery [id number] Abdominal bloating 11/07/2021 Diverticular disease of colon 11/07/2021 Flatulence 11/07/2021 Lactose intolerance 11/07/2021 Iron deficiency anemia 11/07/2021 Intestinal malabsorption 11/07/2021 Neuropathy of right ulnar nerve at wrist 021 Overview (10/03/2021): Added automatically from request for surgery [id number] Pelvic pain 06/14/2017 Pain in wrist 05/06/2017 [...] on file Legal Sex Female 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 Gender Identity Female 05/24/2018 1:36 PM CDT [...] as needed Medical Devices Implanted Type Area Field Sales Specialist Device Identifier Shelf Expiration Date Model / Serial / Lot [employer] Axium Slimtip 1mm 50cm 4 Electrode Lead Front Load Delivery 5mm [id number] - [id number] - [id number] Implanted:Qty: 1 on 08/31/2023 by Dennis Foster MD PhD at [facility] Lead N/A: Epidural Space [employer] 07/22/2024 [id number] / [id number] / [employer] Axium Slimtip 1mm 50cm 4 Electrode Lead Front Load Delivery 5mm [id number] - [id number] - [id number] Implanted:Qty: 1 on 08/31/2023 by Dennis Foster MD PhD at [facility] Lead N/A: Epidural Space [employer] 11/05/2024 [id number] / [id number] / [employer] Axium Slimtip 1mm 50cm 4 Electrode Lead Front Load Delivery 5mm [id number] - [id number] - [id number] Implanted:Qty: 1 on 08/31/2023 by Dennis Foster MD PhD at [facility] Lead N/A: Epidural Space [employer] 03/10/2025 [id number] 50A / [id number] / Rtha-05/07/2005 Implanted:05/07/20 05 (Quantity not on file) Right: Hip [employer] [id number] Seprafilm 6x5in Barrier Adhesion Sterile Disposable Latex Free - [id number] Implanted:Qty: 1 on 10/22/2021 by Ira Marsh MD at [facility] Right: Wrist [facility] [id number] 01/08/2024 [id number] / / [id number] [employer] [id number] Seprafilm 6x5in Barrier Adhesion Sterile Disposable Latex Free - [id number] Implanted:Qty: 1 on 12/09/2021 by Ira Marsh MD at [facility] Left: Wrist [facility] [id number] 01/08/2024 [id number] / / [id number] 2 [employer] Axium Slimtip 1mm 50mm Front Load 4 Electrode 5mm Space Lead [id number] - [id number] - [id number] Implanted:Qty: 1 on 05/10/2023 by Dennis Foster MD PhD at [facility] [employer] [id number] 06/09/2024 [id number] 50A / [id number] / [employer] Axium Slimtip 1mm 50mm Front Load 4 Electrode 5mm Space Lead [id number] - [id number] - [id number] Implanted:Qty: 1 on 05/10/2023 by Dennis Foster MD PhD at [facility] [employer] [id number] 08/30/2024 [id number] [id number] / [id number] / [employer] Axium Slimtip 1mm 50mm Front Load 4 Electrode 5mm Space Lead [id number]-1/24/2 023 Implanted:05/10/20 by Dennis Foster MD PhD (Quantity not on file) N/A: Back [employer] [id number] 08/30/2024 [id number] 50A / [id number] / [employer] Axium Slimtip 1mm 50mm Front Load 4 Electrode 5mm Space Lead [id number] - [id number] - [id number] Implanted:Qty: 1 on 08/06/2023 by Dennis Foster MD PhD at [facility] [employer] [id number] 07/07/2024 [id number]- 50A / [id number] / [employer] Neurostimulator [employer]g Ipg W Iphone Pt Controller [id number] - Wxbl521.1 - [id number] Implanted:Qty: 1 on 09/02/2023 by Dennis Foster MD PhD at [facility] N/A: Epidural Space [employer] [id number] SYSXX / [id number] / [place] [id number] [employer] MEDICARE COMMERCIAL [place] [address] [place] [id number] MEDICARE FOR LIFE Advance Directives For more information, please contact: [phone] Documents on File Type Date Recorded Patient Data Entry Clerk Expl anation ADVANCE DIRECTIVE 09/07/2023 12:37 AM MARIA T ING WILL ADVANCE DIRECTIVE 09/07/2023 12:37 AM POW ER OF PROPAGATOR LABORER-MEDICAL * Full Code (Latest Code Status on File) Date Activated Date Inactivated Comments 10/22/2021 7:28 PM 10/23/2021 2:52 PM Care Teams Halal Butcher Relationship Specialty Start Date End Date Noah Mccarty MD [address] [place] [address] PCP - General 04/26/17 [place] [address] [place] [address] Surgeon Orthopedic Surgery 06/16/18 Richard Rankin DPT [address] [place] [address] Physical Therapist Physical Therapy 12/20/22 Zulay Ghotra DPT [address] [place] [address] Referring Physician Physical Therapy 03/09/24
--- OUTSIDE RECORDS SUMMARY | 2025-04-24 01:07 | XMS_ITS | Clinical Summary ---
Author Organization [facility] Address [address] [place] [address] Care Team Providers Care Sheet Rock Installer Name Role Phone Marcos Campbell MD Primary [...] (04/27/2024): Added automatically from request for surgery [id number] Diverticular disease of colon 11/07/2021 Intestinal malabsorption 11/07/2021 Iron deficiency anemia 11/07/2021 Lactose intolerance 11/07/2021 Neuropathy of right ulnar nerve at wrist 021 Overview (04/27/2024): Added automatically from request for surgery [id number] Pain in wrist 05/06/2017 History of artificial joint 05/20/2016 Osteoarthritis of hip 02/24/2016 Encounters Date Type Department Care Team Description 04/10/2025 External Device Data STL ABSTRACTION Provider, Abstract 04/10/2025 External Device Data STL ABSTRACTION Provider, Abstract 04/06/2025 Orders Only [facility] Management [address] [place] [address] Dennis Foster MD 04/03/2025 11:30 AM CDT Office Visit [facility] [place] [address] [address] [place] [address] Rende, Jenni, UPHOLSTERY MECHANIC Complex regional pain syndrome type 2 of right lower extremity (Primary Dx); Ischial bursitis, unspecified laterality 03/13/2025 External Device Data STL ABSTRACTION Provider, Abstract 03/08/2025 2:30 PM CDT Office Visit [facility] [place] [address] [address] [place] [address] Jenni Tobar, UPHOLSTERY MECHANIC Complex regional pain syndrome type 2 of right lower extremity (Primary Dx); Falls 03/07/2025 External Device Data STL ABSTRACTION Provider, Abstract 03/06/2025 External Device Data STL ABSTRACTION Provider, Abstract 03/05/2025 Abstract [facility] [address] [place] [address] Dennis Foster MD 03/01/2025 9:00 AM CDT - 03/01/2025 9:55 AM CDT Surgery [facility] Operating Room [address] [facility] [address] [place] [address] Dennis Foster MD SPINAL CORD DORSAL COLUMN STIMULATOR INSERTION 03/01/2025 8:05 AM CDT Ancillary Procedure [facility] Operating Room [address] [facility] [address] [place] [address] Dennis Foster MD 03/01/2025 7:49 AM CDT - 03/01/2025 10:10 AM CDT Hospital Encounter [facility] Pre Post [address] [facility] [address] [place] [address] Dennis Foster MD Causalgia of right lower extremity Discharge Disposition: Home or Self Care 02/20/2025 Abstract [facility] [place] [address] [address] [place] [address] Dennis Foster MD 02/20/2025 Orders Only [facility] [place] [address] [address] [place] [address] Dennis Foster MD 02/12/2025 Telephone [facility] [place] [address] [address] [place] [address] Dennis Foster MD NEEDS PT ORDERS FOR [facility] IN [place], [place] 01/29/2025 9:10 AM CDT - 01/29/2025 9:22 AM CDT Surgery [facility] Operating Room [address] [facility] [address] [place] [address] Dennis Foster MD BURSA TROCHANTERIC STEROID INJECTION BILATERAL 01/29/2025 8:25 AM CDT Ancillary Procedure [facility] Operating Room [address] [facility] [address] [place] [address] Dennis Foster MD 01/29/2025 8:15 AM CDT - 01/29/2025 10:37 AM CDT Hospital Encounter [facility] Pre Post [address] [facility] [address] [place] [address] Dennis Foster MD Bursitis of other bursa of hip, unspecified laterality Discharge Disposition: Home or Self Care 01/29/2025 Travel 01/25/2025 Telephone [facility] [address] [place] [address] Dennis Foster MD Medication Question from Last 3 Months Immunizations Immunization Administration [...] PM CDT 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 Gender Identity Female 04/30/2024 7:27 PM CDT [...] Description 05/03/2025 1:00 PM CDT Office Visit [facility] Management [place] [address] [address] [place] [address] Jenni Tobar NP [address] [place] [address] [address] [place] [address] 05/15/2025 7:30 AM CDT Hospital Encounter [facility] Operating Room [address] [facility] [address] [place] [address] Dennis Foster MD [address] [address] [address] [place] [address] Bursitis of both hips, unspecified bursa 05/15/2025 7:30 AM CDT - 05/15/2025 7:42 AM CDT Surgery [facility] Operating Room [address] [facility] [address] [place] [address] Dennis Foster MD [employer] [place] [address] [address] [place] [address] BURSA TROCHANTERIC STEROID INJECTION Scheduled Procedures Name [...] season) 2024 09/12/2021 INFLUENZA VACCINE (#1) 2025 , 07/25/2019, 07/18/2018, Additional history exists RSV VACCINE (60+ or ) (1 - 1-dose 75+ series) 2032 Medical Devices Implanted Type Area Director For Beauty [employer] Device Identifier Shelf Expiration Date Model / Serial / Lot Lead Vectris 1x8 60cm Trial [facility] [id number] - [id number] Implanted:Qty: 1 on 03/01/2025 by Dennis Foster MD at [facility] Lead N/A: Back [employer]- NEUROLOGIC TECH 01/08/2029 [id number] / / [id number] Lead Vectris 1x8 60cm Trial [facility] [id number] - [id number] Implanted:Qty: 1 on 03/01/2025 by Dennis Foster MD at [facility] Lead N/A: Back [employer]- NEUROLOGIC TECH 01/26/2029 [id number] / / [id number] Neuro Stimulator Neuro Stimulator [employer] 3664 / / Description:[email or web address] [email or web address] [email or web address]-hee.html Emery Mccray 42702 - [id number] Implanted:Qty: 1 on 03/01/2025 by Dennis Foster MD at [facility] Other N/A: Back [employer]- NEUROLOGIC TECH 12/28/2028 [id number] / / [id number] Hip Replacement Right: Hip Procedures Procedure Name Priority Date/Time Associated Diagnosis Comments XR FLUORO LESS THAN 1 HOUR Routine 03/01/2025 9:19 AM CDT TX ELEC LEANDRO IMPLT NPGT SMPL SP/PN NPGT PRGRMG 03/01/2025 9:00 AM CDT Causalgia of right lower extremity TX PRQ IMPLTJ NSTIM ELECTRODE ARRAY EPIDURAL 03/01/2025 9:00 AM CDT Causalgia of right lower extremity XR FLUORO LESS THAN 1 HOUR Routine 01/29/2025 9:34 AM CDT CHG FLUOROSCOPIC GUIDANCE NEEDLE PLACEMENT ADD ON 01/29/2025 9:10 AM CDT Bursitis of other bursa of hip, unspecified laterality TX ARTHROCENTESIS ASPIR&/INJ MAJOR JT/BURSA W/O US 01/29/2025 [...] Months Insurance MEDICARE PART A AND B [facility] Care Teams Sheet Rock Installer Relationship Specialty Start Date End Date Marcos Campbell MD [address] [place] [address] PCP - General Internal Medicine 04/03/25
--- OUTSIDE RECORDS SUMMARY | 2025-04-24 01:07 | XMS_ITS | Encounter Summary ---
Author Organization [facility] Address [address] [place] [address] Phone Care Team Providers Care Manager Therapy Name Role Phone Noah Mccarty MD Primary Care Provider Enid Martin MD Unavailable Richard Rankin DPT Unavailable [phone] Padmini Turner DPT Unavailable [phone] Lissett Hernandez DPT Unavailable [phone] Zulay Ghotra DPT Unavailable [phone] Encounter Details Date Type Department Care Team (Late st Contact Info) Description 12/29/2022 Documentation [facility] Physical Therapy Pain Clinic [address] [facility] 14th [place] [address] [place] [address] Kimberly Davila, PT [address] [facility] [address] [place] [address] Social History Tobacco Use Types Packs/Day Years [...] on file 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 Gender Identity Female 05/24/2018 1:36 PM CDT [...] on filedocumented in this encounter Care Teams Manager Therapy Relationship Specialty Start Date End Date Noah Mccarty MD [address] [facility] [facility] [address] [facility] [place] [address] PCP - General 7/10/17 [place] [address] [place] [address] Surgeon Orthopedic Surgery 06/16/18 Richard Rankin, DPT [address] [place] [address] Physical Therapist Physical Therapy 12/20/22 Padmini Turner, DPT [address] [facility] [address] [place] [address] Physical Therapist Physical Therapy 11/18/23 03/08/24 Lissett Hernandez DPT [address] [facility] [address] [place] [address] Physical Therapist Physical Therapy 03/09/24 03/09/24 Zulay Ghotra, DPT [address] [facility] [address] [place] [address] Referring Physician Physical Therapy 03/09/24 documented as of this encounter
--- OUTSIDE RECORDS SUMMARY | 2025-04-24 01:07 | XMS_ITS | Encounter Summary ---
Author Organization [facility] Address [address] [place] [address] Care Team Providers Care Legal Counsel Name Role Phone Noah Mccarty MD Primary Care Provider Enid Martin MD Unavailable [phone] Richard Ranikn DPT Unavailable [phone] Padmini Turner DPT Unavailable Lissett Hernandez DPT Unavailable [phone] Zulay Ghotra DPT Unavailable [phone] Encounter Details Date Type Department Care Team (Late st Contact Info) Description 05/10/2023 Telephone [facility] [address] [facility] [address] [place] [address] Dennis Foster MD PhD [address] [place] [address] Social History Tobacco Use Types Packs/Day Years [...] on file 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 Gender Identity Female 05/24/2018 1:36 PM CDT [...] on filedocumented in this encounter Care Teams Legal Counsel Relationship Specialty Start Date End Date Noah Mccarty MD [address] [facility] [address] [place] [address] PCP - General 04/26/17 [place] [address] [place] [address] Surgeon Orthopedic Surgery 06/16/18 Richard Rankin DPT [address] [facility] [address] [place] [address] Physical Therapist Physical Therapy 12/20/22 Padmini Turner, VAUGHNT [address] [facility] [address] [place], [place] [id number] Physical Therapist Physical Therapy 11/18/23 03/08/24 Lissett Hernandez DPT [address] [facility] [address] [place], [place] [id number] Physical Therapist Physical Therapy 03/09/24 03/09/24 Zulay Ghotra DPT [address] [place], [place] [id number] Referring Physician Physical Therapy 03/09/24 documented as of this encounter
--- OUTSIDE RECORDS SUMMARY | 2025-04-24 01:07 | XMS_ITS | Clinical Summary ---
Author Organization [facility] Address [address] [place] [address] Care Team Providers Care Machine Helper Name Role Phone Khoa Bee MD Primary Care Provider Allergies No known active allergies Medications doxycycline monohydrate 100 MG capsule Take 1 capsule (100 mg total) by mouth daily as needed (Bladder). Active FLUoxetine (PROZAC) 40 MG capsule Take 1 capsule (40 mg total) by mouth daily. 1 Active meloxicam (MOBIC) 15 MG tablet Take 1 tablet (15 mg total) by mouth daily. Active potassium chloride CR (MICRO-K) 10 MEQ CR capsule Take 2 capsules (20 mEq total) by mouth nightly at bedtime. 5 Active rOPINIRole (REQUIP) 1 MG tablet Take 2 tablets (2 mg total) by mouth nightly at bedtime. 2 Active rosuvastatin (CRESTOR) 10 MG tablet Take 1 tablet (10 mg total) by mouth daily. 4 Active spironolactone (ALDACTONE) 25 MG tablet Take 1 tablet (25 mg total) by mouth daily. 4 Active Epinastine HCl 0.05 % Solution Place 1 drop into both eyes daily as needed (Allergies). Active multivitamin (THERA) tablet Take 1 tablet by mouth 2 (two) times a day. Active vitamin B-12 (CYANOCOBALAMIN) 500 MCG tablet Take 1 tablet (500 mcg total) by mouth daily. Active vitamin D3 (CHOLECALCIFEROL ) 25 mcg tablet Take 4 tablets (100 mcg total) by mouth nightly at bedtime. Active fexofenadine (ANNABELLE) 180 MG tablet Take 1 tablet (180 mg total) by mouth daily. Active probiotic (FLORAJEN3) Cap capsule Take 1 capsule by mouth nightly at bedtime. Active Calcium Citrate-Vitamin D (CALCIUM CITRATE + D OR) Take 1,200 mg by mouth daily. Active azelastine (OPTIVAR) 0.05 % ophthalmic solution Place 1 drop into both eyes 2 (two) times daily as needed for Allergies. Active naloxone (NARCAN) 4 MG/0.1ML nasal spray 1 spray by Nasal route as needed for Opioid reversal. may repeat every 2 to 3 minutes in alternating nostrils until medical assistance becomes available 1 each 5 02/06/20 26 Active acetaminophen-co deine (TYLENOL #3) 300-30 MG tabletIndication s:Chronic Pain Take 1 tablet by mouth every 4 (four) hours as needed. Indications: Chronic Pain 30 tablet 5 Active Active Problems Patient Care Coordination No te Formatting of this note migh t be different from the original. 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 04/10/2025 8:45 AM CDT Office Visit [facility] [address] [phone] Dennis Foster MD Meyer, Debra S, PTA Balance Problem 04/10/2025 Travel 04/06/2025 9:30 AM CDT Office Visit [facility] [address] [address] Dennis Foster MD Mueller, Abbie T, EMBOSSING CALENDER OPERATOR Balance Problem 04/06/2025 Travel 04/02/2025 9:30 AM CDT Office Visit [address] [address] Dennis Foster MD Kuelker, Allyson R, PT Balance Problem 04/02/2025 Travel 03/23/2025 9:30 AM CDT Office Visit [address] [address] Dennis Foster MD Mueller, Abbie T, EMBOSSING CALENDER OPERATOR Balance Problem 03/23/2025 Travel 03/19/2025 9:30 AM CDT Office Visit [address] [address] Dennis Foster MD Kuelker, Allyson R, PT Balance Problem 03/19/2025 Travel 03/16/2025 9:30 AM CDT Office Visit [address] [address] Dennis Foster MD Mueller, Abbie T, EMBOSSING CALENDER OPERATOR Balance Problem 03/16/2025 Travel 03/14/2025 11:00 AM CDT Office Visit [address] [address] Dennis Foster MD Kuelker, Allyson R, PT Balance Problem 03/14/2025 Travel 03/05/2025 8:30 AM CDT Office Visit [address] [address] Dennis Foster MD Kuelker, Allyson R, PT Balance Problem (Initial evaluation) 03/05/2025 Travel 02/01/2025 5:33 AM CDT - 02/05/2025 2:10 PM CDT Hospital Encounter [facility] [address] [place] [address] Davis Ernst MD Hughes, Pamela R, MD Diarrhea; Weakness Discharge Disposition: [facility] 02/01/2025 Travel from Last 3 Months Social History Tobacco Use Types Packs/Day Years Used Date Smoking Tobacco: Never Smokeless Tobacco: Never Tobacco Cessation:Counseling Given: Not Answered Alcohol Use Standard Drinks/Week Comments Yes 0 (1 standard drink = 0.6 oz pur e alcohol) socially [id number] Health Literacy Answer Date Recor ded How often do you need to hav e someone help you when you read instructions, pamphlets, or other written material from your doctor or pharmacy? Never 02/01/2025 [facility] Utilities Answer Date Recorded In the past 12 months has e [employer], gas, oil, or water [employer] threatened to shut off services in your home? No 02/01/2025 Humiliation, Afraid, Rape, and Kick questionnair e Answer Date Recorded Within the last year, have y ou been afraid of your partner or ex-partner? No 02/01/2025 Within the last year, have y ou been humiliated or emotionally abused in other ways by your partner or ex-partner? No Within the last year, have y ou been kicked, hit, slapped, or otherwise physically hurt by your partner or ex-partner? No 02/01/2025 Within the last year, have y ou been raped or forced to have any kind of sexual activity by your partner or ex-partner? No 02/01/2025 Social Connection and Isolat ion Panel [NHANES] Answer Date Recorded In a typical week, how many times do you talk on the phone with family, friends, or neighbors? More than three times a week 02/01/2025 How often do you get togethe r with friends or relatives? Once a week 02/01/2025 How often do you attend chur or methodist services? More than 4 times per year 02/01/2025 Do you belong to any clubs o r organizations such as cheondoism groups, unions, fraternal or athletic groups, or school groups? No 02/01/2025 How often do you attend meet ings of the clubs or organizations you belong to? Never 02/01/2025 Are you , , di vorced, , never , or living with a partner? 02/01/2025 AUDIT-C Answer Date Recorded Q1: How often do you have a drink containing alcohol? Never 02/01/2025 Q2: How many drinks containi ng alcohol do you have on a typical day when you are drinking? Patient does not drink Q3: How often do you have si x or more drinks on one occasion? Never 02/01/2025 Overall Financial Resource Strain (CARDIA) Answe r Date Recorded How hard is it for you to pa y for the very basics like food, housing, medical care, and heating? Not hard at all 02/01/2025 [facility] - Occupational Stress Questionnaire Answer Date Recorded Do you feel stress - tense, restless, nervous, or anxious, or unable to sleep at night because your mind is troubled all the time - these days? Not at all 02/01/2025 Hunger Vital Sign Answer Date Recorded Within the past 12 months, y ou worried that your food would run out before you got the money to buy more. Never true 02/02/20 25 Within the past 12 months, t he food you bought just didn't last and you didn't have money to get more. Never true 02/01/2025 PRAPARE - Transportation Answer Date Re corded In the past 12 months, has l ack of transportation kept you from medical appointments or from getting medications? No 01/16 In the past 12 months, has l ack of transportation kept you from meetings, work, or from getting things needed for daily living? No 02/01/2025 Housing Stability Vital Sign Answer Giovanni e Recorded In the last 12 months, was t here a time when you were not able to pay the mortgage or rent on time? No 02/01/2025 In the past 12 months, how m any times have you moved where you were living? 0 02/01/2025 At any time in the past 12 m [facility], were you homeless or living in a care home (including now)? 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 2:38 PM [employer]OL [employer]AMPER Legal Sex Female 6:09 PM CDT Gender Identity Not on file Sexual Orientation Not on file Last Filed Vital Signs Vital Sign Reading Time Taken Comments Blood Pressure 134/55 02/05/2025 10:45 AM CDT Pulse 95 02/05/2025 10:45 AM CDT Temperature 36.4 C (97.5 F) 02/05/2025 10:45 AM CDT Respiratory Rate 18 02/05/2025 10:4 5 AM CDT Oxygen Saturation 95% 02/05/2025 10: 45 AM CDT Inhaled Oxygen Concentration - - Weight 96.5 kg (212 lb 11.9 oz) 02/05/2025 5:52 AM CDT Height 157.5 cm (5' 2) 02/01/2025 5:33 AM CDT Body Mass Index 38.91 02/01/2025 5:33 AM CDT Plan of Treatment Health Maintenance Due Date Last Done Comments Colorectal Cancer Screening Colonoscopy (10 Years) 1955 Hepatitis C 1975 DTaP, Tdap and Td Vaccines ( 1 - Tdap) 1976 Zoster Vaccines (2 of 3) 06/13/2012 04/18/2012 Mammogram Screening 05/24/2015 05/24/2013, 05/08/2013 Annual Medicare Wellness Visit 2022 Dexa Scan (General) 2022 Pneumococcal Vaccine: 50+ Years (2 of 2 - PCV) 02/11/2023 02/11/2022, 08/28/2020 COVID-19 Vaccine (1 - 2023-2 5 season) 2024 RSV Immunization or 60+ Years (1 - 1-dose 75+ series) 2032 Meningococcal B Vaccine Aged Out No l onger eligible based on patient's age to complete this topic Meningococcal Vaccine Aged Out No troy lloyd eligible based on patient's age to complete this topic RSV Immunizations Under 20 Months Aged Out No longer eligible b ased on patient's age to complete this topic Goals Goal Patient Goal Type Associated Problems Recent Progress Patient-Stated? 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 Procedure Name Priority Date/Time Associated Diagnosis Comments BASIC METABOLIC PANEL TIMED 02/05/2025 6:19 AM CDT CBC W/DIFF AUTOMATED TIMED 02/05/2025 6:19 AM CDT BASIC METABOLIC PANEL Routine 02/04/2025 4:20 AM CDT CBC W/DIFF AUTOMATED Routine 02/04/2025 4:20 AM CDT BASIC METABOLIC PANEL Routine 02/03/2025 4:45 AM CDT CBC W/DIFF AUTOMATED Routine 02/03/2025 4:45 AM CDT ECG 12-LEAD STAT 02/02/2025 1:01 PM CDT BASIC METABOLIC PANEL Routine 02/02/2025 7:11 AM CDT CBC W/DIFF AUTOMATED Routine 02/02/2025 7:11 AM CDT AMMONIA Routine 02/01/2025 10:16 PM CDT FOLIC ACID SERUM Routine 02/01/2025 7:48 PM CDT VITAMIN B-12 Routine 02/01/2025 7:48 PM CDT TSH W/REFLEX Routine 02/01/2025 7:48 PM CDT BLOOD GAS, ARTERIAL LAB Routine 02/01/2025 7:30 PM CDT GI PANEL PCR - STOOL STAT 02/01/2025 2:00 PM CDT THYROID STIM HORMONE TSH STAT 02/01/2025 12:32 PM CDT TROPONIN, QUANT Routine 02/01/2025 12:32 PM CDT CULTURE, BACTERIA, BLOOD STAT 02/01/2025 12:28 PM CDT CULTURE, BACTERIA, BLOOD STAT 02/01/2025 12:18 PM CDT LACTIC ACID W REFLEX (SEPSIS) STAT 02/01/2025 12:18 PM CDT URINE BACTERIA CULTURE Routine 11:04 AM CDT URINALYSIS, AUTO, COMPLETE STAT 02/01/2025 11:[address] HEAD WO CON STAT 02/01/2025 10:25 AM CDT PHOSPHORUS, INORGANIC PHOSPHATE STAT 02/01/2025 5:47 AM CDT CK (CPK) STAT 02/01/2025 5:47 AM CDT MAGNESIUM STAT 02/01/2025 5:47 AM CDT COMPREHENSIVE METABOLIC PANEL STAT 02/01/2025 5:47 AM CDT CBC W/DIFF AUTOMATED STAT 02/01/2025 5:47 AM CDT MG DIAGNOSTIC RT DIGI Routine 05/24/2013 1:09 PM CDT from Last 3 Months or Most Recently Relevant to Health Maintenance Results * (ABNORMAL) BASIC METABOLIC PANEL (02/05/2025 6:19 AM CDT) Only the most recent of4 resultswithin the time period is included. GLUCOSE 76 70 - 99 MG/DL 02/05/2025 7:07 AM CDT [facility] BUN 7 7 - 18 MG/DL 02/05/2025 7:07 AM CDT [facility] CREATININE S/P/B 0.50(L) 0.55 - 1.02 MG/DL 02/05/2025 7:07 AM CDT [facility] SODIUM S/P/B 146(H) 136 - 145 MMOL/L 02/05/2025 7:07 AM CDT [facility] POTASSIUM S/P/B 3.8 3.5 - 5.1 MMOL/L 02/05/2025 7:07 AM CDT [facility] CHLORIDE S/P/B 117(H) 97 - 115 MMOL/L 02/05/2025 7:07 AM CDT [facility] CO2 24.1 21 - 32 MMOL/L 02/05/2025 7:07 AM CDT [facility] CALCIUM S/P/B 7.1(L) 8.5 - 10.1 MG/DL 02/05/2025 7:07 AM CDT [facility] ANION GAP 4.9 2 - 10 MMOL/L 02/05/2025 7:07 AM T [facility] BUN CREATININE RATIO 14.1 6 - 26 02/05/2025 7:07 AM T [facility] GFR ESTIMATE >90 >90 ML/MIN/1.7 3 M2 02/05/2025 7:07 AM T [facility] Comment: NOTE: eGFR is not calculated for patients <18 years of age or gender unknown. This is an estimated GFR calculation using the new CKD EPI creatinine equation without race and so does not require a correction factor for race. This estimated GFR should not be used for calculating drug doses. 02/05/2025 6:19 AM CDT us Elvi Valiente MD LABORATORY Final Result [facility] [address] [place] [address], [place] [phone] * (ABNORMAL) CBC W/DIFF AUTOMATED (02/05/2025 6:19 AM CDT) Only the most recent of5 resultswithin the time period is included. WBC 13.36(H) 4.5 - 11.0 x10'3/uL 02/05/2025 6:55 AM CDT [facility] RBC 3.80(L) 4.20 - 5.40 x10'6/uL 02/05/2025 6:55 AM CDT [facility] HGB 12.1 12.0 - 16.0 G/DL 02/05/2025 6:55 AM CDT [facility] HCT 37.1(L) 38.0 - 48.0 % 02/05/2025 6:55 AM CDT [facility] MCV 97.6 81.0 - 99.0 FL 02/05/2025 6:55 AM CDT [facility] MCH 31.8(H) 27.0 - 31.0 PG 02/05/2025 6:55 AM CDT [facility] MCHC 32.6 32.0 - 36.0 G/DL 02/05/2025 6:55 AM CDT [facility] RDW 14.9(H) 11.5 - 14.5 % 02/05/2025 6:55 AM CDT [facility] PLT 286 130 - 400 x10'3/uL 02/05/2025 6:55 AM CDT [facility] MPV 9.6 9.3 - 12.2 FL 02/05/2025 6:55 AM CDT [facility] DIFFERENTIAL TYPE AUTOMATED DIFFERENTIAL 02/05/2025 6:55 AM CDT [facility] NEUTROPHILS % 75.9 % 02/05/2025 6:55 AM CDT [facility] LYMPHOCYTES % 15.9 % 02/05/2025 6:55 AM CDT [facility] MONOCYTES % 4.3 % 02/05/2025 6:55 AM CDT [facility] EOSINOPHILS 1.3 % 02/05/2025 6:55 AM CDT [facility] BASOPHILS 0.5 % 02/05/2025 6:55 AM CDT [facility] IMMATURE GRANS % 2.1 % 02/06/20 6:55 AM CDT [facility] ABS. NEUTROPHILS 10.12(H) 1.80 - 7.70 x10'3/uL 02/05/2025 6:55 AM CDT [facility] ABS. LYMPHOCYTES 2.13 1.00 - 4.80 x10'3/uL 02/05/2025 6:55 AM CDT [facility] ABS. MONOCYTES 0.58 0.24 - 0.86 x10'3/uL 02/05/2025 6:55 AM CDT [facility] ABS. EOSINOPHILS 0.18 0.04 - 0.36 x10'3/uL 02/05/2025 6:55 AM CDT [facility] ABS. BASOPHILS 0.07 0.01 - 0.08 x10'3/uL 02/05/2025 6:55 AM CDT [facility] ABS. IMMATURE GRANULOCYTES 0.28 0.00 - 0.49 x10'3/uL 02/05/2025 6:55 AM CDT [facility] 02/05/2025 6:19 AM CDT us Elvi Valiente MD LABORATORY Final Result [facility] [address], [place] [address] [phone] * ECG 12 lead (02/02/2025 1:01 PM CDT) 02/02/2025 1:01 PM CDT Narrative [facility] - 02/03/2025 4:[address] [facility] [address] Test Date: 2025-02-02 Pat Name: SCOTT BILLS Department: 40 Room: 23 Gender: Female Debone Supervisor: CDNG : 1955 Requested By: ELVI VALIENTE Order Number: [id number] Reading : Eran Melendez Measurements Intervals [place] Rate: 94 P: 5 IN: 136 QRS: -43 QRSD: 106 T: 24 QT: 254 QTc: 318 Interpretive Statements SINUS RHYTHM LEFT AXIS DEVIATION [QRS AXIS < -30] POSSIBLE ANTERIOR MYOCARDIAL INFARCTION , OF INDETERMINATE AGE [30 ms Q WAVE IN V3/V4, OR R < 0.2 mV IN V4] No previous ECG available for comparison Procedure Note Eran Melendez MD - 02/03/[address]25 [facility] [address] Test Date: 2025-02-02 Pat Name: SCOTT BILLS Department: 40 Room: A523 Gender: Female Debone Supervisor: CDNG : 1955 Requested By: ELVI VALIENTE Order Number: [id number] Reading : Eran Melendez Measurements Intervals [place] Rate: 94 P: 5 IN: 136 QRS: -43 QRSD: 106 T: 24 QT: 254 QTc: 318 Interpretive Statements SINUS RHYTHM LEFT AXIS DEVIATION [QRS AXIS < -30] POSSIBLE ANTERIOR MYOCARDIAL INFARCTION , OF INDETERMINATE AGE [30 ms QWAVE IN V3/V4, OR R < 0.2 mV IN V4] No previous ECG available for comparison us Elvi Valiente MD ECG ORDERABLES Final Result [facility] ([facility] * AMMONIA (02/01/2025 10:16 PM CDT) Pathologist [facility] AMMONIA 26 11 - 32 UMOL/L 02/01/2025 11:17 PM CDT [facility] 02/01/2025 10:1 6 PM CDT [facility] Swapnil DO LABORATORY Final Result Performing Organization Address City/[facility]/ZIP Co de Phone Number [facility] [address] [place] [address], [place] [phone] * TSH W/REFLEX (02/01/2025 7:48 PM CDT) [facility] TSH 1.530 0.358 - 3.74 uIU/ML 02/01/2025 11:39 PM CDT [facility] Comment: HIGH DOSES OF BIOTIN MAY INTERFERE WITH THIS TEST RESULT. CORRELATION TO CLINICAL HISTORY AND PRESENTATION RECOMMENDED. FREE T4 NOT INDICATED 02/01/2025 7:48 PM CDT [facility] Swapnil LABORATORY Final Result Performing Organization Address City/[facility]/ZIP Co de Phone Number [facility] [address] [place] [address], [place] [phone] * (ABNORMAL) VITAMIN B-12 (02/01/2025 7:48 PM CDT) [facility] VITAMIN B12 S/P/B 26,370(H) 254 - 1,320 PG/ML 02/01/2025 11:39 PM CDT [facility] 02/01/2025 7:48 PM CDT [facility] Swapnil LABORATORY Final Result [facility] [address] [place] [address], [place] [phone] * (ABNORMAL) FOLIC ACID SERUM (02/01/2025 7:48 PM CDT) Pathologist [facility] FOLATE 19.3(H) 3.1 - 17.5 NG/ML 02/01/2025 11:39 PM CDT [facility] Comment:SLIGHT HEMOLYSIS, RE SULT MAY BE AFFECTED. 02/01/2025 7:48 PM CDT [facility] Swapnil LABORATORY Final Result [facility] [address] [place] [address], [place] [phone] * (ABNORMAL) ARTERIAL BLOOD GAS (02/01/2025 7:30 PM CDT) PH ARTERIAL 7.44 7.35 - 7.45 02/01/2025 8:51 PM CDT [facility] PCO2 32.0(L) 35.0 - 45.0 MMHG 02/01/2025 8:51 PM CDT [facility] PO2 94.0 83.0 - 108.0 MMHG 02/01/2025 8:51 PM CDT [facility] TOTAL CO2 ARTERIAL 22.7 19.0 - 24.0 MMOL/L 02/01/2025 8:51 PM CDT [facility] BASE DEFICIT 1.6 0.0 - 3.0 MMOL/L 02/01/2025 8:51 PM CDT [facility] O2 SATURATION 98 94.0 - 98.0 % 02/01/2025 8:51 PM CDT [facility] BICARB ARTERIAL 21.7 21.0 - 28.0 MMOL/L 02/01/2025 8:51 PM CDT [facility] CONNOR TEST CONNOR TEST PERFORMED 02/01/2025 8:49 PM CDT [facility] O2 ADMIN ARTERIAL 21 02/01/2025 8:49 PM CDT [facility] DRAW SITE ARTERIAL RT RADIAL 02/01/2025 8:49 PM CDT [facility] 02/01/2025 7:30 PM CDT Audrey Kraft LABORATORY Final Result [facility] [address] [place] [address], * (ABNORMAL) GI PANEL PCR - STOOL (02/01/2025 2:00 PM CDT) CAMPYLOBACTER PCR (STOOL) DETECTED(AA ) NOT DETECTED 02/01/2025 4:20 PM CDT [facility] Comment:RESULTS CALLED TO AN D REPEATED BACK BY LEIGHTON FONG AT 16:19 ON 02/01/2025 [facility] PLESIOMONAS SHIGELLOIDES PCR (STOOL) NOT DETECTED NOT DETECTED 02/01/2025 4:20 PM CDT [facility] SALMONELLA PCR (STOOL) NOT DETECTED NOT DETECTED 02/01/2025 4:20 PM CDT [facility] VIBRIO PCR (STOOL) NOT DETECTED NOT DETECTED 02/01/2025 4:20 PM CDT [facility] VIBRIO CHOLERAE PCR (STOOL) NOT DETECTED NOT DETECTED 02/01/2025 4:20 PM CDT [facility] YERSINIA ENTEROCOLITICA PCR (STOOL) NOT DETECTED NOT DETECTED 02/01/2025 4:20 PM CDT [facility] ENTEROAGGREGATIVE ECOLI PCR (STOOL) NOT DETECTED NOT DETECTED 02/01/2025 4:20 PM CDT [facility] ENTEROPATHOGENIC ECOLI PCR (STOOL) NOT DETECTED NOT DETECTED 02/01/2025 4:20 PM CDT [facility] ENTEROTOXIGENIC ECOLI PCR (STOOL) NOT DETECTED NOT DETECTED 02/01/2025 4:20 PM CDT [facility] SHIGA LIKE TOXIN ECOLI PCR (STOOL) NOT DETECTED NOT DETECTED 02/01/2025 4:20 PM CDT [facility] SHIG/ENTEROINVASIVE ECOLI PCR (STOOL) NOT DETECTED NOT DETECTED 02/01/2025 4:20 PM CDT [facility] CRYPTOSPORIDIUM PCR (STOOL) NOT DETECTED NOT DETECTED 02/01/2025 4:20 PM CDT [facility] CYCLOSPORA CAYETANENSIS PCR (STOOL) NOT DETECTED NOT DETECTED 02/01/2025 4:20 PM CDT [facility] ENTAMOEBA HISTOLYTICA PCR (STOOL) NOT DETECTED NOT DETECTED 02/01/2025 4:20 PM CDT [facility] GIARDIA LAMBLIA PCR (STOOL) NOT DETECTED NOT DETECTED 02/01/2025 4:20 PM CDT [facility] ADENOVIRUS F40/41 PCR (STOOL) NOT DETECTED NOT DETECTED 02/01/2025 4:20 PM CDT [facility] ASTROVIRUS PCR (STOOL) NOT DETECTED NOT DETECTED 02/01/2025 4:20 PM CDT [facility] NOROVIRUS GI/GII PCR (STOOL) NOT DETECTED NOT DETECTED 02/01/2025 4:20 PM CDT [facility] ROTAVIRUS A PCR (STOOL) NOT DETECTED NOT DETECTED 02/01/2025 4:20 PM CDT [facility] SAPOVIRUS PCR (STOOL) NOT DETECTED NOT DETECTED 02/01/2025 4:20 PM CDT [facility] STOOL SPECIMEN / Unknown 02/01/2025 2:00 PM CDT Quintin Strauss MD MICROBIOLOGY - GENERAL ORDERABL ES Final Result Performing Organization Address City/[facility] Co de Phone Number [facility] [address] [place] [address], [place] [phone] * TROPONIN, QUANT (02/01/2025 12:32 PM CDT) Pathologist [facility] TROPONIN I HIGH SENSITIVITY 5 <54 ng/L 02/01/2025 1:26 PM CDT [facility] Comment: HIGH DOSES OF BIOTIN, TROPONIN-SPECIFIC AUTOANTIBODIES, AND ANTIBODY THERAPY CONTAINING HAMA MAY INTERFERE WITH THIS TEST RESULT. CORRELATION TO CLINICAL HISTORY AND PRESENTATION RECOMMENDED. 02/01/2025 12:3 2 PM CDT Audrey Kraft DO LABORATORY Final Result Performing Organization Address [facility] de Phone Number [facility] [address] [place] [address], [place] [phone] * THYROID STIM HORMONE, TSH (02/01/2025 12:32 PM CDT) Pathologist [facility] TSH 0.886 0.358 - 3.74 uIU/ML 02/01/2025 1:26 PM CDT [facility] Comment: HIGH DOSES OF BIOTIN MAY INTERFERE WITH THIS TEST RESULT. CORRELATION TO CLINICAL HISTORY AND PRESENTATION RECOMMENDED. 02/01/2025 12:3 2 PM CDT Audrey Kraft DO LABORATORY Final Result Performing Organization Address City/[facility] Co de Phone Number [facility] [address] [place] [address], [place] [phone] * CULTURE, BACTERIA, BLOOD (02/01/2025 12:28 PM CDT) Only the most recent of2 resultswithin the time period is included. SPEC DESCRIPTION BLOOD 02/01/2025 11:46 AM CDT [facility] SPECIAL REQUESTS NO SPECIAL REQUEST 02/01/2025 11:46 AM CDT [facility] CULTURE RESULT NO GROWTH 5 DAYS 02/06/2025 1:07 PM CDT [facility] BLOOD SPECIMEN OBTAINED FOR BLOOD CULTURE / Unknown 02/01/2025 12:28 PM CDT 02/01/2025 12:54 PM CDT Davis Ernst MD MICROBIOLOGY - GENERA L ORDERABLES Final Result [facility] [address] [place] [id number], [place] [phone] * LACTIC ACID W REFLEX (SEPSIS) (02/01/2025 12:18 PM CDT) LACTIC ACID VENOUS 0.8 0.4 - 2.0 MMOL/L 02/01/2025 1:16 PM CDT [facility] 02/01/2025 12:1 8 PM CDT Audrey Kraft DO LABORATORY Final Result [facility] [address] [place] [id number], [place] [phone] * URINE BACTERIA CULTURE (02/01/2025 11:04 AM CDT) SPEC DESCRIPTION URINE CLEAN CATCH 02/01/2025 11:49 AM CDT [facility] SPECIAL REQUESTS NO SPECIAL REQUEST 02/01/2025 11:49 AM CDT [facility] CULTURE RESULT MULTIPLE ORGANISMS PRESENT, PROBABLE CONTAMINATION . SUGGEST REPEAT CULTURE. 02/02/2025 11:06 AM CDT [facility] URINE SPECIMEN OBTAINED BY CLEAN CATCH PROCEDURE / Unknown 02/01/2025 11:04 AM CDT 02/01/2025 12:53 PM CDT us Quintin Strauss MD MICROBIOLOGY - GENERAL ORDERABL ES Final Result [facility] [address] [place] [address], [place] [phone] * (ABNORMAL) Urinalysis, Auto, Complete (02/01/2025 11:04 AM CDT) SPECIMEN TYPE URINE CLEAN CATCH 02/01/2025 11:04 AM CDT [facility] COLOR (U) YELLOW 02/01/2025 11:26 AM CDT [facility] TRANSPARENCY TURBID 02/01/2025 11:26 AM CDT [facility] SPECIFIC GRAVITY (U) 1.023 1.001 - 1.030 02/01/2025 11:26 AM CDT [facility] U PH 6.0 5.0 - 9.0 02/01/2025 11:26 AM CDT [facility] LEUKOCYTES (U) 75(A) NEGATIVE 02/01/2025 11:26 AM CDT [facility] NITRITES NEGATIVE NEGATIVE 02/01/2025 11:26 AM CDT [facility] PROTEIN RANDOM (U) 30(H) <30 MG/DL 02/01/2025 11:26 AM CDT [facility] GLUCOSE (U) NORMAL NORMAL MG/DL 02/01/2025 11:26 AM CDT [facility] KETONES MG/DL (U) TRACE(A) NEGATIVE MG/DL 02/01/2025 11:26 AM CDT [facility] UROBILINOGEN NORMAL NORMAL MG/DL 02/01/2025 11:26 AM CDT [facility] BILIRUBIN (U) NEGATIVE NEGATIVE MG/DL 02/01/2025 11:26 AM CDT [facility] BLOOD (U) NEGATIVE NEGATIVE 02/01/2025 11:26 AM CDT [facility] MUCUS RARE /LPF 02/01/2025 11:26 AM CDT [facility] HYALINE CASTS RARE /LPF 02/01/2025 11:26 AM CDT [facility] WBC/HPF 6(H) <6 /HPF 02/01/2025 11:26 AM CDT [facility] RBC/HPF 10(H) <6 /HPF 02/01/2025 11:26 AM CDT [facility] BACTERIA (U) RARE(A) NONE /HPF 02/01/2025 11:26 AM CDT [facility] SQUAMOUS EPITHELIALS FEW /HPF 02/01/2025 11:26 AM CDT [facility] URINE SPECIMEN OBTAINED BY CLEAN CATCH PROCEDURE / Unknown 02/01/2025 11:04 AM CDT us Davis Ernst MD URINE ORDERABLES Lisa pratt Result [facility] [address] [place] [address], [place] [phone] * CT HEAD WO CON (02/01/2025 10:25 AM CDT) Anatomical Region Laterality Modality Head Computed Tomogra phy 02/01/2025 10:5 5 AM CDT Impressions 02/01/2025 10:56 AM CDT IMPRESSION: 1. No acute intracranial hemorrhage or mass effect 2. Near complete opacification of the right maxillary sinus. MRI would be more sensitive for the detection of an acute infarct. Referred By: Interpreted By: Arnie Jalloh MD, 02/01/2025 10:55 AM Narrative 02/01/2025 10:56 AM CDT [place] [id number] EXAMINATION:Head CT without contrast 02/01/2025 INDICATION:Altered mental status TECHNIQUE: Axial CT images of head were acquired without intravenous contrast. Sagittal coronal reformats were constructed. Radiation dose reduction techniques were used. COMPARISON: None FINDINGS:No acute intracranial hemorrhage, mass effect or midline shift or extra axial fluid collection. No ventriculomegaly, sulcal effacement or loss of jain/white matter differentiation No acute osseous abnormality. There is hyperostosis frontalis interna. There is near complete opacification of the right maxillary sinus. Mastoid air cells and middle ear cavities are clear. The orbits and globes are unremarkable. Procedure Note Arnie Jalloh MD - 02/01/[address] [address] EXAMINATION:Head CT without contrast 02/01/2025 INDICATION:Altered mental status TECHNIQUE: Axial CT images of head were acquired without intravenouscontrast. Sagittal coronal reformats were constructed. Radiation dosereduction techniques were used. COMPARISON: None FINDINGS:No acute intracranial hemorrhage, mass effect or midline shift orextra axial fluid collection. No ventriculomegaly, sulcal effacement orloss of jain/white matter differentiation No acute osseous abnormality. There is hyperostosis frontalis interna.There is near complete opacification of the right maxillary sinus.Mastoid air cells and middle ear cavities are clear. The orbits andglobes are unremarkable. IMPRESSION: 1. No acute intracranial hemorrhage or mass effect 2. Near complete opacification of the right maxillary sinus. MRI would be more sensitive for the detection of an acute infarct. Referred By: Interpreted By: Arnie Jalloh MD, 02/01/2025 10:55 AM us Davis Ernst MD CT Final Result * (ABNORMAL) COMPREHENSIVE METABOLIC PANEL (02/01/2025 5:47 AM CDT) GLUCOSE 108(H) 70 - 99 MG/DL 02/01/2025 6:52 AM CDT [facility] BUN 15 7 - 18 MG/DL 02/01/2025 6:52 AM CDT [facility] CREATININE S/P/B 0.96 0.55 - 1.02 MG/DL 02/01/2025 6:52 AM CDT [facility] SODIUM S/P/B 135(L) 136 - 145 MMOL/L 02/01/2025 6:52 AM CDT [facility] POTASSIUM S/P/B 3.5 3.5 - 5.1 MMOL/L 02/01/2025 6:52 AM CDT [facility] CHLORIDE S/P/B 107 97 - 115 MMOL/L 02/01/2025 6:52 AM CDT [facility] CO2 19.2(L) 21 - 32 MMOL/L 02/01/2025 6:52 AM CDT [facility] CALCIUM S/P/B 8.2(L) 8.5 - 10.1 MG/DL 02/01/2025 6:52 AM CDT [facility] BILIRUBIN TOTAL S/P/B 0.4 0.2 - 1.2 MG/DL 02/01/2025 6:52 AM CDT [facility] Comment: THIS ASSAY IS NOT RECOMMENDED FOR PATIENTS UNDERGOING TREATMENT WITH ELTROMBOPAG DUE TO THE POTENTIAL FOR FALSELY ELEVATED RESULTS. TOTAL PROTEIN S/P/B 6.2(L) 6.4 - 8.2 G/DL 02/01/2025 6:52 AM CDT [facility] ALBUMIN S/P/B 2.2(L) 3.4 - 5.0 G/DL 02/01/2025 6:52 AM CDT [facility] AST 16 15 - 37 U/L 02/01/2025 6:52 AM T [facility] ALT 18 14 - 55 U/L 02/01/2025 6:52 AM T [facility] ALKALINE PHOSPHATASE S/P/B 132 50 - 136 U/L 02/01/2025 6:52 AM T [facility] ANION GAP 8.8 2 - 10 MMOL/L 02/01/2025 6:52 AM T [facility] BUN CREATININE RATIO 15.6 6 - 26 02/01/2025 6:52 AM T [facility] A/G RATIO 0.6(L) 1.0 - 2.0 RATIO 02/01/2025 6:52 AM T [facility] GFR ESTIMATE 65(L) >90 ML/MIN/1.7 3 M2 02/01/2025 6:52 AM T [facility] Comment: NOTE: eGFR is not calculated for patients <18 years of age or gender unknown. This is an estimated GFR calculation using the new CKD EPI creatinine equation without race and so does not require a correction factor for race. This estimated GFR should not be used for calculating drug doses. 02/01/2025 5:47 AM CDT us Gerson Salazar MD,PHD LABORATORY Final Resu lt Performing Organization Address [facility]/ZIP Co de Phone Number [facility] [address] [place] [id number], * PHOSPHORUS, INORGANIC PHOSPHATE (02/01/2025 5:47 AM CDT) PHOSPHORUS 3.4 2.5 - 4.9 MG/DL 02/01/2025 6:52 AM CDT [facility] 02/01/2025 5:47 AM CDT Gerson Salazar MD,PHD LABORATORY Final [facility] Performing Organization Address [facility] Co de Phone Number [facility] [address] [place] [phone], * (ABNORMAL) MAGNESIUM (02/01/2025 5:47 AM CDT) MAGNESIUM 1.7(L) 1.8 - 2.4 MG/DL 02/01/2025 6:52 AM CDT [facility] 02/01/2025 5:47 AM CDT Gerson Salazar MD,PHD LABORATORY Final [facility] Performing Organization Address City/[facility]/ZIP Co de Phone Number [facility] [address] [place] [phone], * CK (CPK) (02/01/2025 5:47 AM CDT) CPK 42 21 - 215 U/L 02/01/2025 6:52 AM CDT [facility] 02/01/2025 5:47 AM CDT us Gerson Salazar MD,PHD LABORATORY Final Resu lt [facility] [address] [place] [address], * MG DIAGNOSTIC RT DIGI (05/24/2013 1:09 PM CDT) Anatomical Region Laterality Modality Breast Right Mammography 05/24/2013 1:09 PM CDT 05/24/2013 1:09 PM CDT Narrative 05/24/2013 4:31 PM CDT [facility] ORDERING MD: ROSARIO THIBODEAUX DO ACCT: [id number] : 1955 PT TYPE: REG CLI SEX: F ORD SITE: [facility] OUTPT IMAGING STUDY DATE REPORT # PROCEDURE CODE PROCEDURE 05/24/13 [id number] DXMAMDIGRT MG DIAGNOSTIC MAMMO DIGITAL RT EXTORDERID [id number] ACCESSION NUMBER [id number] CHART DOCUMENT IMPRESSION: MULTIPLE TINY CLUSTERS OF FINE AMORPHOUS CALCIFICATIONS IN THE UPPER OUTER QUADRANT OF THE RIGHT BREAST APPEAR STABLE FROM PRIOR STUDIES. FOLLOWUP IMAGING IS SUGGESTED. ASSESSMENT: BI-RADS 3, PROBABLY BENIGN. RECOMMENDATION: DIAGNOSTIC MAMMOGRAPHY IN 6 MONTHS. HISTORY: NEW TINY CLUSTERS OF CALCIFICATIONS SEEN ON SCREENING MAMMOGRAPHY DATED 05/08/13 WITH FURTHER EVALUATION RECOMMENDED. DIAGNOSTIC RIGHT BREAST MAMMOGRAPHY TECHNIQUE: ADDITIONAL LEFT CC, ML, MAGNIFIED MLO, MAGNIFIED CC AND EXAGGERATED CC L MAMMOGRAMS ARE OBTAINED. FINDINGS: THE PREVIOUSLY SEEN FINE CLUSTERS OF CALCIFICATIONS IN THE UPPER OUTER QUADRANT OF THE RIGHT BREAST ARE AGAIN SEEN. THESE EXHIBIT A FINE AMORPHOUS MORPHOLOGY AND CANNOT BE CONSIDERED COMPLETELY BENIGN. HOWEVER THE DO NOT EXHIBIT CHARACTERISTICS SUGGESTIVE OF MALIGNANCY OF YET. FOLLOW UP STUDY IN 6 MONTHS IS SUGGESTED FOR FURTHER EVALUATION. NO NEW AREAS OF FOCAL ASYMMETRY, DOMINANT MASS LESIONS OR SKIN THICKENING IS SEEN WITHIN THE RIGHT BREAST. DIGITAL MAMMOGRAPHIC VIEWS REVIEWED BY R2 IMAGE CHECK. ELECTRONICALLY SIGNED BY: ROBERT PANTOJA M.D. 05/24/2013 16:30 ROBERT PANTOJA M.D. P #[id number] P/MA CC: ROSARIO THIBODEAUX D.O. Radiology image is available. Click on Image Link above. Procedure Note Armando Fox, - 08/11/2018 [facility] ORDERING MD: ROSARIO THIBODEAUX DO ACCT: [id number] : 1955 PT TYPE: REG CLI SEX: F ORD SITE: [facility] OUTPT IMAGING STUDY DATE REPORT # PROCEDURE CODE PROCEDURE 05/24/13 [id number] DXMAMDIGRT MG DIAGNOSTIC MAMMO DIGITAL RT EXTORDERID [id number] ACCESSION NUMBER [id number] CHART DOCUMENT IMPRESSION: MULTIPLE TINY CLUSTERS OF FINE AMORPHOUS CALCIFICATIONS IN THE UPPEROUTER QUADRANT OF THE RIGHT BREAST APPEAR STABLE FROM PRIOR STUDIES. FOLLOWUP IMAGING IS SUGGESTED. ASSESSMENT: BI-RADS 3, PROBABLY BENIGN. RECOMMENDATION: DIAGNOSTIC MAMMOGRAPHY IN 6 MONTHS. HISTORY: NEW TINY CLUSTERS OF CALCIFICATIONS SEEN ON SCREENINGMAMMOGRAPHY DATED 05/08/13 WITH FURTHER EVALUATION RECOMMENDED. DIAGNOSTIC RIGHT BREAST MAMMOGRAPHY TECHNIQUE: ADDITIONAL LEFT CC, ML, MAGNIFIED MLO, MAGNIFIED CC AND EXAGGERATED CC L MAMMOGRAMS ARE OBTAINED. FINDINGS: THE PREVIOUSLY SEEN FINE CLUSTERS OF CALCIFICATIONS IN THEUPPER OUTER QUADRANT OF THE RIGHT BREAST ARE AGAIN SEEN. THESE EXHIBIT A FINE AMORPHOUS MORPHOLOGY AND CANNOT BE CONSIDERED COMPLETELY BENIGN. HOWEVER THE DO NOT EXHIBIT CHARACTERISTICS SUGGESTIVE OF MALIGNANCY OF YET. FOLLOW UP STUDY IN 6 MONTHS IS SUGGESTED FOR FURTHER EVALUATION. NO NEW AREAS OF FOCAL ASYMMETRY, DOMINANT MASS LESIONS OR SKIN THICKENING ISSEEN WITHIN THE RIGHT BREAST. DIGITAL MAMMOGRAPHIC VIEWS REVIEWED BY R2 IMAGE CHECK. ELECTRONICALLY SIGNED BY: ROBERT PANTOJA M.D. 05/24/2013 16:30 ROBERT PANTOJA M.D. P #[id number] P/MA CC: ROSARIO THIBODEAUX D.O. Radiology image is available. Click on Image Link above. Rosario Thibodeaux DO MAMMO Final Result from Last 3 Months or Most Recently Relevant to Health Maintenance Insurance MEDICARE [facility] Advance Directives * POLST (Latest Code Status on File) Date Activated Date Inactivated Comments 02/01/2025 12:08 PM 02/05/2025 4:10 PM Question Answer Comments Cardiopulmonary Resuscitatio n (CPR) If patient has no pulse and is not breathing: DO NOT Attempt Resuscitation CPR Medical Interventions when N OT in Cardiopulmonary Arrest (If patient is found with a pulse and/or is breathing): Selective Treatment - Do NOT Intubate Selective Treatment Options: IV Medicati onsIV FluidsCPAP/BIPAPOxygenSuction Artificially administered nu trition - Offer food by mouth, if feasible and desired: None - No Artificial Nutrition Care Teams Machine Helper Relationship Specialty Start Date End Date Khoa Bee MD [address] [place] [address] [place] [phone] PCP - General INTERNAL MEDICINE 02/01/25
--- OUTSIDE RECORDS SUMMARY | 2025-04-24 01:07 | XMS_ITS | Encounter Summary ---
Author Organization [facility] Address [facility] [place] [address] Care Team Providers Care Summer Internship Name Role Phone Noah Mccarty MD Primary Care Provider [phone] Khoa Bee MD Primary Care Provider Encounter Details Date Type Department Care Team (Latest Contact Info) Description 08/23/2018 Abstract [facility] , Armando Ramos MD Social History Tobacco Use Types Packs/Day Years Used Date Smoking Tobacco: Never Assessed Comments Unknown Sex and Gender Information Value Date Recorded 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 Sex Female 6:09 PM CDT Gender Identity Not on file Sexual Orientation Not on file documented as of this encounter Plan of Treatment Not on file documented as of this encounter Visit Diagnoses Not on filedocumented in this encounter Care Teams Summer Internship Relationship Specialty Start Date End Date Noah Mccarty MD [address] [place] [address] [place] [id number] PCP - General INTERNAL MEDICINE 11/15/18 01/31/25 Khoa Bee MD [address] [place] [phone] PCP - General INTERNAL MEDICINE 02/01/25 documented as of this encounter
--- OUTSIDE RECORDS SUMMARY | 2025-04-24 01:07 | XMS_ITS | Clinical Summary ---
Author Organization [facility] Address [address] [place] [address] Care Team Providers Care Locker Room Attendant Name Role Phone Noah Mccarty MD Primary Care Provider Enid Martin MD Unavailable Richard Rankin DPT Unavailable [phone] Zulay Ghotra DPT Unavailable [phone] Allergies Active Allergy Reactions Criticality Noted Date [...] 1 tablet/capsule (100 mg total) by mouth editor & co founder before breakfast Active QUEtiapine (SEROquel) 100 [...] ORAL)Indications:h ealth Take 1 capsule by mouth editor & co founder before breakfast Active fluorometholone (FML) 0.1 [...] one health Take 4 capsules by mouth editor & co founder before breakfast Active solifenacin (VESIcare) 5 [...] (11/27/2021): Added automatically from request for surgery [id number] Abdominal bloating 11/07/2021 Diverticular disease of colon 11/07/2021 Flatulence 11/07/2021 Lactose intolerance 11/07/2021 Iron deficiency anemia 11/07/2021 Intestinal malabsorption 11/07/2021 Neuropathy of right ulnar nerve at wrist 021 Overview (10/03/2021): Added automatically from request for surgery [id number] Pelvic pain 06/14/2017 Pain in wrist 05/06/2017 History of artificial joint 05/20/2016 Osteoarthritis of hip 02/24/2016 Family history of CREST syndrome Encounters Date Type Department Care Team Description 01/23/2025 1:[address] [facility] [address] [place] [phone] Felton Gabriel, PhD Major depressive disorder, recurrent episode, moderate (HCC) (Primary Dx); Other chronic pain from Last 3 Months Immunizations Immunization Administration Dates Next Due Influenza, Trivalent, IM (MDV) 07/18/2016 Influenza, Trivalent, Preser vative Free, Intramuscular 07/25/2019,07/18/2018,07/23/2015 Influenza, Unspecified 07/11/2021 Surgical History Surgery Date Site/Laterality Comments [place] TONSILLECTOMY PRIMARY/SEC ONDARY <AGE 14 10/18/1964 - 10/17/1965 HYSTERECTOMY 10/18/1993 - 10/17/1994 GASTRIC BYPASS 10/18/2003 - 10/17/2004 LA ARTHRP ACETBLR/PROX FEM P ROSTC AGRFT/ALGRFT 10/18/2015 [...] on file 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 Gender Identity Female 05/24/2018 1:36 PM [...] as needed Medical Devices Implanted Type Area Mail Processing Equipment Mechanic Device Identifier Shelf Expiration Date Model / Serial / Lot [employer] Axium Slimtip 1mm 50cm 4 Electrode Lead Front Load Delivery 5mm [id number] - [id number] - [id number] Implanted:Qty: 1 on 08/31/2023 by Dennis Foster MD PhD at [facility] Lead N/A: Epidural Space [employer] 07/22/2024 [id number] / [id number] / [employer] Axium Slimtip 1mm 50cm 4 Electrode Lead Front Load Delivery 5mm [id number] - [id number] - [id number] Implanted:Qty: 1 on 08/31/2023 by Dennis Foster MD PhD at [facility] Lead N/A: Epidural Space [employer] 11/05/2024 [id number] / [id number] / [employer] Axium Slimtip 1mm 50cm 4 Electrode Lead Front Load Delivery 5mm [id number] - [id number] - [id number] Implanted:Qty: 1 on 08/31/2023 by Dennis Foster MD PhD at [facility] Lead N/A: Epidural Space [employer] 03/10/2025 [id number] / [id number] / Rtha-05/07/2005 Implanted:05/07/20 (Quantity not on file) Right: Hip [employer] [id number] Seprafilm 6x5in Barrier Adhesion Sterile Disposable Latex Free - [id number] Implanted:Qty: 1 on 10/22/2021 by Ira Marsh MD at [facility] Right: Wrist [facility] [id number] 01/08/2024 [id number] / / [id number] 2 [employer] [id number] Seprafilm 6x5in Barrier Adhesion Sterile Disposable Latex Free - [id number] Implanted:Qty: 1 on 12/09/2021 by Ira Marsh MD at [facility] Left: Wrist [facility] [id number] 01/08/2024 [id number] / / [id number] 2 [employer] Axium Slimtip 1mm 50mm Front Load 4 Electrode 5mm Space Lead [id number] - [id number] - [id number] Implanted:Qty: 1 on 05/10/2023 by Dennis Foster MD PhD at [facility] [employer] [id number] 06/09/2024 [id number] 50A / [id number] / [employer] Axium Slimtip 1mm 50mm Front Load 4 Electrode 5mm Space Lead [id number] - [id number] - [id number] Implanted:Qty: 1 on 05/10/2023 by Dennis Foster MD PhD at [facility] [employer] [id number] 08/30/2024 [id number] 50A / [id number] / [employer] Axium Slimtip 1mm 50mm Front Load 4 Electrode 5mm Space Lead [id number]/24/2 023 Implanted:05/10/20 by Dennis Foster MD PhD (Quantity not on file) N/A: Back [employer] [id number] 08/30/2024 [id number] 50A / [id number] / [employer] Axium Slimtip 1mm 50mm Front Load 4 Electrode 5mm Space Lead [id number] - [id number] - [id number] Implanted:Qty: 1 on 08/06/2023 by Dennis Foster MD PhD at [facility] [employer] [id number] 07/07/2024 [id number] 50A / [id number] / [employer] Neurostimulator [employer] Drg Ipg W Iphone Pt Controller [id number] - [id number] - [id number] Implanted:Qty: 1 on 09/02/2023 by Dennis Foster MD PhD at [facility] N/A: Epidural Space [employer] [id number] / [id number] / Insurance [employer] [facility] MEDICARE COMMERCIAL GENERIC MEDICARE [employer] LIFE MEDICARE FOR LIFE Advance Directives For more information, please contact: [phone] Documents on File Type Date Recorded 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 Expl anation ADVANCE DIRECTIVE 09/07/2023 12:37 AM MARIA T ING WILL ADVANCE DIRECTIVE 09/07/2023 12:37 AM POW ER OF INSURANCE ADJUSTER-MEDICAL * Full Code (Latest Code Status on File) Date Activated Date Inactivated Comments 10/22/2021 7:28 PM 10/23/2021 2:52 PM Care Teams Locker Room Attendant Relationship Specialty Start Date End Date Noah Mccarty MD [address] [place] [address] PCP - General 04/26/17 [place] [address] [place] [address] Surgeon Orthopedic Surgery 06/16/18 Richard Rankin DPT [address] [place] [address] Physical Therapist Physical Therapy 12/20/22 Zulay Ghotra DPT [address] [facility] [address] [place] [address] Referring Physician Physical Therapy 03/09/24
[2025-04-24 10:10] VITALS: BP 128/60; PULSE 80; RESP 18; TEMP 36.1; O2SAT 96
[2025-04-24] MEDS: LACTATED RINGERS 1,000 ML 150 ML IV CONT (10:27)
--- NOTE | 2025-04-24 10:27 | P.PNAN_ITS ---
Anes - Initial Pre Proc Eval Procedure: Operation Date: 04/24/25 11:00 Proposed Procedures p Screening Colonoscopy - Laureano Freedman DO Date/Time: 04/24/25 10:27 Surgeon: Laureano Freedman DO Pre Op Diagnosis: Neoplasm screening Patient Data Age: 69 Gender: F Height: 1.57 m Weight: 89.6 kg Last Vital Signs Temp 97 F L 04/24/25 10:10 Pulse 80 04/24/25 10:10 Resp 18 04/24/25 10:10 BP 128/60 04/24/25 10:10 Pulse Ox 96 04/24/25 10:10 O2 Del Method Room Air 04/24/25 10:10 Allergies Allergy/AdvReac Type Severity Reaction Status Date / Time olanzapine (From Zyprexa) Allergy Intermediate Nightmare Verified 04/24/25 10:09 oxycodone AdvReac Intermediate Other Verified 04/24/25 10:09 lactose AdvReac Mild Diarrhea Verified 04/24/25 10:09 naproxen (From Aleve) AdvReac Mild Agitated Verified 04/24/25 10:09 Red beets Allergy Intermediate Hives Uncoded 04/24/25 10:09 artificial coating AdvReac Mild Agitated Uncoded 04/24/25 10:09 Home Medications ?Medication ?Instructions ?Recorded ?Confirmed ?Type Componmd Nerve Relief Lotion topical 03/22/25 04/17/25 History acetaminophen 300 mg-codeine 60 mg 1 tablet PO Q4H PRN pain 03/22/25 04/17/25 History tablet alprazolam 0.5 mg tablet 0.5 mg PO TID PRN anxiety 03/22/25 04/17/25 History amitriptyline 100 mg tablet 200 mg PO QHS 03/22/25 04/17/25 History azelastine 137 mcg (0.1 %) nasal 137 mcg intranasal Q12H PRN 03/22/25 04/17/25 History spray allergey symptoms colestipol 1 gram tablet 1 g PO BID 03/22/25 04/17/25 History cyclobenzaprine 5 mg tablet 5 mg PO TID PRN muscle spasm 03/22/25 04/17/25 History cyclosporine 0.05 % eye drops in a 1 drp EACH EYE Q12H 03/22/25 04/17/25 History dropperette epinastine 0.05 % eye drops 1 drp EACH EYE Q12H 03/22/25 04/17/25 History fluoxetine 40 mg capsule 40 mg PO DAILY 03/22/25 04/17/25 History furosemide 20 mg tablet 60 mg PO DAILY 03/22/25 04/17/25 History meloxicam 15 mg tablet 15 mg PO DAILY 03/22/25 04/17/25 History potassium chloride 20 meq BYMOUTH HS 03/22/25 04/17/25 History pregabalin 165 mg tablet, extended 165 mg PO TID 03/22/25 04/17/25 History release 24 hr (Lyrica CR) ropinirole 1 mg tablet 2 mg PO HS 03/22/25 04/17/25 History rosuvastatin 10 mg tablet 10 mg PO DAILY #90 tabs 03/22/25 04/17/25 Rx solifenacin 10 mg tablet (Vesicare) 10 mg PO DAILY 03/22/25 04/17/25 History spironolactone 25 mg tablet 25 mg PO DAILY 03/22/25 04/17/25 History valacyclovir 1 gram tablet 1,000 mg PO DAILY PRN cold sores 03/22/25 04/17/25 History zolpidem 10 mg tablet 10 mg PO QHS PRN sleep 03/22/25 04/17/25 History nitrofurantoin 100 mg PO Q12H #50 caps 03/26/25 04/17/25 Rx monohydrate/macrocrystals 100 mg capsule (Macrobid) doxycycline hyclate 100 mg tablet See Rx Instructions .Route .COMPLEX 04/02/25 04/17/25 History tizanidine 4 mg tablet 4 mg PO DAILY PRN muscle spasticity 04/02/25 04/17/25 History ciprofloxacin HCl 500 mg tablet 500 mg PO Q12H chronic maxillary 04/09/25 04/17/25 Rx (Cipro) sinusitis right #20 tabs Patient hx anesthesia problems: none Family hx anesthesia problems: none Results Review: All pre-operative results and documents have been reviewed as part of the pre- operative evaluation. 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 Hyperlipidemia Encounter to establish care Surgical History Surgical History Hx of gastric bypass Social History Social History Smoking status: Never smoker Alcohol intake: current Drinks per week: 1 Alcohol use details: monthly Substance use: current Substance use type: painkillers Living arrangements: with family Spiritual care concerns: No Anes - Eval Final PreProcedure Day of Procedure 04/24/25 10:27 Patient weight: obese Lungs: normal air movement Airway: Mallampati scale class II Neurological: alert and oriented Last oral intake: >/= 8 hours ASA classification: III Emergent: no Anesthetic plan: proceed Anesthesia type and monitoring: general GIVS and standard monitoring Results Review: All pre-operative results and documents have been reviewed as part of the pre-operative evaluation. Hyperlipidemia, MILI but noncompliant w CPAP, CRPS to foot which limits activity. Informed Consent: The patient's anesthetic plan and its attendant risks and benefits were discussed with the patient/family/POA. Questions were solicited and answers provided to the satisfaction of the patient/family/POA.
--- NOTE | 2025-04-24 10:45 | P.HP_ITS ---
H&P: HPI History of Present Illness Date/Time: 04/24/25 10:45 Chief Complaint: History of polyps Narrative: this is a 69-year-old woman who presents for colonoscopy. Her last colonoscopy was 5 years ago and polyps were removed at that time. She denies any hematochezia or melena. She denies family history of colon cancer. Review of Systems Review of Systems: All systems reviewed & are unremarkable except as noted in HPI and below Constitutional: Constitutional: Denies chills, Denies fever(s), Denies headache(s) and Denies weight loss Eyes: Eyes: Denies change in vision ENT: Denies dizziness, Denies headache(s), Denies neck mass and Denies throat swelling Cardiovascular: Cardiovascular: Denies chest pain, Denies lightheadedness and Denies dyspnea Respiratory: Respiratory: Denies cough, Denies dyspnea and Denies wheezing Gastrointestinal: Gastrointestinal: Denies abdominal pain, Denies change in bowel habits, Denies nausea and Denies vomiting Genitourinary: Genitourinary: Denies hematuria and Denies dysuria Musculoskeletal: Musculoskeletal: Reports as per HPI Integumentary/Breasts: Skin/Breast: Reports as per HPI Neurologic: Denies dizziness and Denies headache(s) Allergic/Immunologic: Allergic/Immunologic: Denies throat swelling and Denies wheezing [facility] Past Medical History Medical History Pedal edema Vitamin D deficiency Fall Hx of colonic polyps Colon cancer screening Breast cancer screening CRPS (complex regional pain syndrome) Peripheral neuropathy Anxiety and depression Insomnia BMI 30.0-30.9,adult 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 Hyperlipidemia Encounter to establish care Surgical History Surgical History Hx of gastric bypass Social History Social History Smoking status: Never smoker Alcohol intake: current Drinks per week: 1 Alcohol use details: monthly Substance use: current Substance use type: painkillers Living arrangements: with family Spiritual care concerns: No Meds Home Medications and Allergies Home Medications ?Medication ?Instructions ?Recorded ?Confirmed ?Type Componmd Nerve Relief Lotion topical 03/22/25 04/17/25 History acetaminophen 300 mg-codeine 60 mg 1 tablet PO Q4H PRN pain 03/22/25 04/17/25 History tablet alprazolam 0.5 mg tablet 0.5 mg PO TID PRN anxiety 03/22/25 04/17/25 History amitriptyline 100 mg tablet 200 mg PO QHS 03/22/25 04/17/25 History azelastine 137 mcg (0.1 %) nasal 137 mcg intranasal Q12H PRN 03/22/25 04/17/25 History spray allergey symptoms colestipol 1 gram tablet 1 g PO BID 03/22/25 04/17/25 History cyclobenzaprine 5 mg tablet 5 mg PO TID PRN muscle spasm 03/22/25 04/17/25 History cyclosporine 0.05 % eye drops in a 1 drp EACH EYE Q12H 03/22/25 04/17/25 History dropperette epinastine 0.05 % eye drops 1 drp EACH EYE Q12H 03/22/25 04/17/25 History fluoxetine 40 mg capsule 40 mg PO DAILY 03/22/25 04/17/25 History furosemide 20 mg tablet 60 mg PO DAILY 03/22/25 04/17/25 History meloxicam 15 mg tablet 15 mg PO DAILY 03/22/25 04/17/25 History potassium chloride 20 meq BYMOUTH HS 03/22/25 04/17/25 History pregabalin 165 mg tablet, extended 165 mg PO TID 03/22/25 04/17/25 History release 24 hr (Lyrica CR) ropinirole 1 mg tablet 2 mg PO HS 03/22/25 04/17/25 History rosuvastatin 10 mg tablet 10 mg PO DAILY #90 tabs 03/22/25 04/17/25 Rx solifenacin 10 mg tablet (Vesicare) 10 mg PO DAILY 03/22/25 04/17/25 History spironolactone 25 mg tablet 25 mg PO DAILY 03/22/25 04/17/25 History valacyclovir 1 gram tablet 1,000 mg PO DAILY PRN cold sores 03/22/25 04/17/25 History zolpidem 10 mg tablet 10 mg PO QHS PRN sleep 03/22/25 04/17/25 History nitrofurantoin 100 mg PO Q12H #50 caps 03/26/25 04/17/25 Rx monohydrate/macrocrystals 100 mg capsule (Macrobid) doxycycline hyclate 100 mg tablet See Rx Instructions .Route .COMPLEX 04/02/25 04/17/25 History tizanidine 4 mg tablet 4 mg PO DAILY PRN muscle spasticity 04/02/25 04/17/25 History ciprofloxacin HCl 500 mg tablet 500 mg PO Q12H chronic maxillary 04/09/25 04/17/25 Rx (Cipro) sinusitis right #20 tabs Allergies Allergy/AdvReac Type Severity Reaction Status Date / Time olanzapine (From Zyprexa) Allergy Intermediate Nightmare Verified 04/24/25 10:09 oxycodone AdvReac Intermediate Other Verified 04/24/25 10:09 lactose AdvReac Mild Diarrhea Verified 04/24/25 10:09 naproxen (From Aleve) AdvReac Mild Agitated Verified 04/24/25 10:09 Red beets Allergy Intermediate Hives Uncoded 04/24/25 10:09 artificial coating AdvReac Mild Agitated Uncoded 04/24/25 10:09 Vital Signs Vital Signs - 24 hr 04/24/25 10:10 Temperature 97 F L Pulse Rate 80 Respiratory Rate 18 Blood Pressure 128/60 Pulse Oximetry 96 Oxygen Delivery Room Air Exam Const: General: no acute distress and alert Orientation/consciousness: patient oriented x3 HENMT: Head: normocephalic and atraumatic Ears: hearing grossly normal bilaterally Face/Nose/Sinus: Normal nares present Mouth: Yes Normal oral and palatal mucosa present Eyes: Periorbital: periorbital findings normal Sclera: sclerae normal EOM: EOMs intact bilaterally Neck: Neck: normal visual inspection, no lymphadenopathy and trachea midline Chest: Chest palpation & inspection: normal inspection of the chest Resp: Effort & Inspection: normal respiratory effort Auscultation: clear to auscultation bilaterally Cardio: Jugular venous distension: no JVD Rate: regular rate Rhythm: regular rhythm Heart sounds: S1 normal heart sound present and S2 normal heart sound present Peripheral pulses: Peripheral pulses 2+ throughout GI: Inspection: normal to inspection GI Palp: Yes Soft to palpation, No Tenderness to palpation present (GI), No Guarding due to palpation present (GI) and No Rebound tenderness present Percussion: Yes normal to percussion Auscultation: normal bowel sounds : General: Yes no CVA tenderness Back/Spine/Pelvis: Back: no CVA tenderness Neuro: General: patient oriented x3, no focal motor deficits and CN's II-XI intact bilaterally Cognition (Neuro): normal cognition Speech: normal speech Motor exam (neuro): 5/5 motor strength present throughout Extrem: General: capillary refill normal and no clubbing, cyanosis or edema Assessment and Plan Assessment and plan (1) Hx of colonic polyps: Code(s): Z86.0100 - Personal history of colon polyps, unspecified Status: Acute Assessment and Plan: I have recommended colonoscopy. I have discussed the procedure, risks, benefits, and alternatives. Questions were answered. Patient is agreeable to proceed. (2) Colon cancer screening: Code(s): Z12.11 - Encounter for screening for malignant neoplasm of colon Status: Acute
[2025-04-24 11:48] VITALS: BP 104/53; PULSE 75; RESP 21; O2SAT 100
[2025-04-24 11:58] VITALS: BP 109/56; PULSE 74; RESP 24; O2SAT 99
[2025-04-24 12:08] VITALS: BP 112/53; PULSE 69; RESP 16; O2SAT 95
--- NOTE | 2025-04-24 14:08 | SUR.OPER ---
ONLY ABLE TO REACH HEPATIC FLEXURE DURING COLONOSCOPY DUE TO TORTUOUS COLON AND POOR PREP.
== END 2025-04-24 12:19 | disposition home or self-care (01) ==
PROVIDERS: PCP Internal Medicine; Visit Provider Surgery
PROC: 0DJD8ZZ Inspection of Lower Intestinal Tract, Via Natural or Artificial Opening Endoscopic (ICD-10-PCS; CPT 45378; principal; 2025-04-24 11:00)
DX: Z12.11 Encounter for screening for malignant neoplasm of colon (principal); E78.5 Hyperlipidemia, unspecified; E55.9 Vitamin D deficiency, unspecified; G62.9 Polyneuropathy, unspecified; F41.8 Other specified anxiety disorders; G47.00 Insomnia, unspecified; G47.33 Obstructive sleep apnea (adult) (pediatric); E66.9 Obesity, unspecified; Z68.36 Body mass index [BMI] 36.0-36.9, adult; Z79.891 Long term (current) use of opiate analgesic; Z79.899 Other long term (current) drug therapy; Z98.84 Bariatric surgery status; Z86.0100 Personal history of colon polyps, unspecified
CPT/HCPCS: G0105; J2003; J2704; J7120

== ENCOUNTER 2025-05-23 11:05 | Outpatient (CLI) | payer MEDICARE, OTHER, SELFPAY ==
--- NOTE | 2025-05-23 11:32 | ECG_ITS ---
Test Date: 2025-05-23 11:39:36 Measurements Intervals [place] Rate: 81 P: 44 [place]: 161 QRS: -45 QRSD: 98 T: 25 QT: 349 QTc: 407 Interpretive Statements SINUS RHYTHM LEFT AXIS DEVIATION LOW QRS VOLTAGE IN PRECORDIAL LEADS CONSIDER ANTERIOR INFARCT, AGE INDETERMINATE BASELINE ARTIFACT- II, III, AVR, AVL, AVF, V1-V2 ABNORMAL ECG No previous ECG available for comparison Electronically Signed On 05-23-2025 11:49:45 CDT by Cash Valdez D.O.
--- OUTSIDE RECORDS SUMMARY | 2025-05-23 12:07 | XMS_ITS | Encounter Summary ---
Author Organization [facility] Address [address] [place] [address] Phone Care Team Providers Care Quantitative Software Engineer Name Role Phone Noah Mccarty MD Primary Care Provider Enid Martin MD Unavailable Richard Rankin DPT Unavailable [phone] Padmini Turner DPT Unavailable [phone] Lissett Hernandez DPT Unavailable [phone] Zulay Ghotra DPT Unavailable [phone] Encounter Details Date Type Department Care Team (Late st Contact Info) Description 12/29/2022 Documentation [facility] [address] [place] [address] [place] [address] Kimberly Davila, PT [address] [facility] [address] [place] [address] Social History Tobacco Use Types Packs/Day Years [...] on file Legal Sex Female 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 Gender Identity Female 05/24/2018 1:36 PM [...] on filedocumented in this encounter Care Teams Quantitative Software Engineer Relationship Specialty Start Date End Date Noah Mccarty MD [address] [place] [address] PCP - General 7/10/17 [place] [address] [place] [address] Surgeon Orthopedic Surgery 06/16/18 Richard Rankin, DPT [address] [place] [address] Physical Therapist Physical Therapy 12/20/22 Padmini Turner, DPT [address] [facility] [address] [place] [address] Physical Therapist Physical Therapy 11/18/23 03/08/24 Lissett Hernandez DPT [address] [facility] [address] [place] [address] Physical Therapist Physical Therapy 03/09/24 03/09/24 Zulay Ghotra, DPT [address] [facility] [address] [place] [address] Referring Physician Physical Therapy 03/09/24 documented as of this encounter
--- OUTSIDE RECORDS SUMMARY | 2025-05-23 12:07 | XMS_ITS | Encounter Summary ---
Author Organization [facility] Address [address] [facility] Attn: Epic Prelude ADT [place] [address] Care Team Providers Care Labor Supervisor Name Role Phone Marcos Campbell MD Primary Care Provider + Encounter Details Date Type Department Care Team (Latest Contact Info) Description 05/22/2025 Travel Social History Tobacco Use Types Packs/Day Years Used Date Smoking Tobacco: Never Alcohol Use Standard Drinks/Week Comments Not Currently 0 (1 standard drink = 0.6 oz pur e alcohol) Comments No Sex and Gender Information Value Date Recorded Sex Assigned at Female 04/30/2024 7:27 PM CDT Legal Sex Female 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 Gender Identity Female 04/30/2024 7:27 PM CDT Sexual Orientation Not on file documented as of this encounter Plan of Treatment Upcoming Encounters Date Type Department Care Team (Latest Contact Info) Description 06/08/2025 10:55 AM CDT Hospital Encounter [facility] Operating Room [address] [address] [place] [address] Dennis Foster MD [address] [address] [address] [place], [place] [address] Complex regional pain syndrome type 2 of right lower extremity 06/08/2025 10:55 AM CDT - 06/08/2025 1:23 PM CDT Surgery [facility] Operating Room [address] [address] [place] [address] Dennis Foster MD [address] [facility] [address] [place] [phone] DRG SCS X3 LEADS & IPG REPLACEMENT [place] Scheduled Procedures Name Priority Associated Diagnoses Date/Ti me SPINAL CORD DORSAL COLUMN STIMULATOR INSERTION Complex regional pain syndrome type 2 of right lower extremity 06/08/2025 10:55 AM CDT documented as of this encounter Goals Goal Patient Goal Type Associated Problems Recent Progress Patient-Stated? Author Autogenera fifi Goal Care Plan Autogenerated Problem No Adriana Tyson documented as of this encounter Visit Diagnoses Not on filedocumented in this encounter Additional Health Concerns Active Problems Noted Date Diagnosed Date Autogenerated Problem 05/08/2025 documented as of this encounter Care Teams Labor Supervisor Relationship Specialty Start Date End Date Marcos Campbell MD [address] [place] [id number] PCP - General Internal Medicine 04/03/25 documented as of this encounter
--- OUTSIDE RECORDS SUMMARY | 2025-05-23 12:07 | XMS_ITS | Encounter Summary ---
Author Organization [facility] Address [address] [place] [address] Care Team Providers Care Public Relations Specialist Name Role Phone Marcos Campbell MD Primary Care Provider + Reason for Visit * Auth/Cert (Routine) Specialty Diagnoses / Procedures Referred By Contalannah t Referred To Contact Perioperative Diagnoses Bursitis of other bursa of both hips Procedures [place] ARTHROCENTESIS ASPIR&/INJ MAJOR JT/BURSA W/O US B/L ISCHIAL TUBEROSITY INJ (NO BT) ; HIP JOINT INTRAARTICULAR INJECTION Dennis Foster MD [address] [place] [address] Phone: tel: fax: [facility] Operating Room [address] [place] [address] Referral ID Status Reason Start Date Expiration Date Visits Re quested Visits Authorized [id number] 1 1 Encounter Details Date Type Department Care Team (Late st Contact Info) Description 05/22/2025 7:34 AM CDT - 05/22/2025 7:46 AM CDT Surgery [facility] Operating Room [address] [place] [address] Dennis Foster MD [address] [place] [address] B/L ISCHIAL TUBEROSITY INJ (NO BT) HIP JOINT INTRAARTICULAR INJECTION Surgery Details Date/Time Status Location OR Service Patient Class Case Cl ass Case Type Trauma Case? 05/22/2025 7:34 AM Posted J[facility]N SH OR SH OR 03 Anesthesia Outpatient Elective No Panel 1 Procedure LRB Anes Op Region Wound Class Comments B/L ISCHIAL TUBEROSITY INJ ( NO BT) HIP JOINT INTRAARTICULAR INJECTION Bilateral General Hip Clean- I Surgeon Surgeon Role Service Panel Dennis Foster MD Primary Anesthesia 1 documented in this encounter Social History Tobacco Use Types Packs/Day Years Used Date Smoking Tobacco: Never Alcohol Use Standard Drinks/Week Comments Not Currently 0 (1 standard drink = 0.6 oz pur e alcohol) Comments No Sex and Gender Information Value Date Recorded Sex Assigned at Female 04/30/2024 7:27 PM CDT 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 Gender Identity Female 04/30/2024 7:27 PM CDT Sexual Orientation Not on file documented as of this encounter Last Filed Vital Signs Vital Sign Reading Time Taken Comments Blood Pressure 138/57 05/22/2025 7:37 AM CDT Pulse 76 05/22/2025 7:37 AM CDT Temperature 36.4 C (97.6 F) 05/22/2025 7:37 AM CDT Respiratory Rate 16 05/22/2025 7:37 AM CDT Oxygen Saturation 97% 05/22/2025 7:37 AM CDT Inhaled Oxygen Concentration - - Weight 92.1 kg (203 lb) 05/09/2025 4:46 PM CDT Height 157.5 cm (5' 2) 05/09/2025 4:46 PM CDT Body Mass Index 37.13 05/09/2025 4:46 PM CDT documented in this encounter Discharge Instructions * Discharge Instructions* Kayla Shelton RN - 05/21/2025 9:23 AM CDT [facility] PATIENT EDUCATION POST PROCEDURE INFORMATION SHEET After this procedure you may have: Dizziness Numbness in one or both legs or arms. Weakness in one or both legs or arms. These effects are temporary and should go away within 6-8 hours. You may have a small amount of bruising, bleeding, swelling or soreness at the injection site(s). It is best to apply ice packs for 20 minutes every 1-2 hours for the first 24 hours. After 24 hours, if you still have discomfort, you may use a heating pad. Do not leave ice or heat on for more than 20 minutes at a time. Do not sit or lie on top of the heating pad Stand up slowly from a sitting or lying position today to prevent feeling dizzy or lightheaded. Limit activity today. No driving today. You may resume your normal activity, including driving, in the morning You may take a shower. No bath for 24 hours, which includes a hot tub or swimming pool. You have received two medications in your injection today. The first is a numbing medicine. This medicine may give you quick pain relief that may wear off before tomorrow. The second medicine is a steroid, which may take 2 to 7 days to start working. You may also have some extra soreness at the injection site. After the numbing wears off, your pain may return until the steroid takes effect. [facility] [address] [address], [address] [place] [address]. documented in this encounter Medications at Time of Discharge acetaminophen-cod eine (TYLENOL #4) 300-60 mg tabletIndications :Chronic use of opiate drug for therapeutic purpose TAKE 1 TABLET BY MOUTH EVERY 4 HOURS NEEDED FOR MODERATE PAIN 180 Tablet 2 04/27/2025 epinastine (ELESTAT) 0.05 % solution 1 Drop by See Admin Instructions route 2 times daily. amitriptyline (ELAVIL) 100 mg tablet Take 100 mg by mouth daily at bedtime. azelastine (OPTIVAR) 0.05 % solution 1 Drop by See Admin Instructions route 2 times daily. nitrofurantoin macrocrystaL (MACRODANTIN) 25 mg Capsule Take 25 mg by mouth 4 times daily with meals and at bedtime. valACYclovir (VALTREX) 1 gram tablet Take 1 Gram by mouth 2 times daily. OTHERIndications: Complex regional pain syndrome type 2 of right lower extremity Drug name: Lidocaine 5%, Clonidine 0.2%, Ketoprofen 10%, Gabapentin 10%, ketamine 5%, Amitriptyline 1%. Apply to right foot for pain up to 4x/day as needed. 60 Gram 01/17/2025 cycloSPORINE (RESTASIS) 0.05 % emulsion Administer 1 Drop in both eyes 2 times daily. fexofenadine (ANNABELLE) 180 mg tablet Take 180 mg by mouth daily. furosemide (LASIX) 20 mg tablet Take 40 mg by mouth daily. ALPRAZolam (XANAX) 0.5 mg tablet Take 0.5 mg by mouth nightly as needed. 2023 Cholecalciferol, Vitamin D3, 50 mcg (2,000 unit) Capsule Take 4,000 Units by mouth daily. colestipoL (COLESTID) 1 gram tablet Take 1 Gram by mouth 2 times daily. 02/16/2023 FLUoxetine (PROzac) 40 mg capsule 40 mg daily. 08/26/2023 meloxicam (MOBIC) 15 mg tablet Take 15 mg by mouth daily before breakfast. 08/26/2023 potassium chloride (MICRO-K EXTENCAPS) 10 mEq Extended Release capsule Take 20 mEq by mouth daily. 06/20/2022 pregabalin (LYRICA CR) 165 mg Extended Release 24 hour tablet 165 mg 3 times daily. 11/18/2023 rOPINIRole (REQUIP) 1 mg tablet Take 2 mg by mouth daily at bedtime. 06/16/2022 rosuvastatin (CRESTOR) 10 mg tablet Take 10 mg by mouth daily. 03/29/2023 solifenacin (VESICARE) 5 mg Tablet Take 10 mg by mouth daily at bedtime. 08/17/2023 spironolactone (ALDACTONE) 25 mg tablet Take 25 mg by mouth daily. 06/20/2022 tiZANidine (ZANAFLEX) 4 mg Tablet TAKE 1/2-1 TABLET BY MOUTH EVERY 6-8 HOURS NEEDED NOT TO EXCEED 3 DOSES IN 24 HOURS 02/08/2024 zolpidem (AMBIEN) 10 mg tablet Take 10 mg by mouth nightly as needed. 2023 documented as of this encounter Progress Notes * Soheila Ford RN - 05/22/2025 7:58 AM CDT Discharge instructions printed and discussed. Patient verbalized understanding. Patient made aware of need to make follow up appointment with office. Patient denies numbness/tingling of extremities. Injection site clean, dry and intact. Patient discharged home. documented in this encounter H&P Notes * Dennis Foster MD - 05/22/2025 7:40 AM CDT I have reviewed the H&P, examined the patient, and endorse the findings as written. Plan of Care CRAB FISHERMAN Jenni Tobar on 05/03/25 : Based on the above findings, I consider the patient to be an acceptable risk for : bilateral Ischial tuberosity bursa injection. documented in this encounter OR Notes * Operative Report - Dennis Foster MD - 05/22/2025 7:41 AM CDT Images from the original note were not included. Patient ID Patient Name: Scott Garcia : 1955 DOS: 05/22/2025 PCP: Marcos Campbell MD Attending Surgeon: Dennis Foster MD. PhD. Assessment Post-Op Diagnosis Codes: * Bursitis of other bursa of both hips [M70.71, M70.72] NAME OF PROCEDURE: BILATERAL Ischial Tuberosity Bursa Injection PREPROCEDURAL DIAGNOSES: Other Chronic Pain, BILATERAL Buttock Pain, BILATERAL Ischial Tuberosity Bursitis. POSTPROCEDURAL DIAGNOSES: Other Chronic Pain, BILATERAL Buttock Pain, BILATERAL Ischial TuberosityBursitis. INDICATION FOR PROCEDURE: BILATERAL Buttock Pain with Tenderness over Ischial Tuberosity Bursa. INFORMED CONSENT: After reviewing the procedure with the patient, informed consent to proceed with the injection was obtained. A procedural permit was also signed. DESCRIPTION OF PROCEDURE: The patient was placed in the prone position. The BILATERAL ischial tuberosity bursa area was prepped thoroughly with chloroprep. Sterile technique was used throughout. A 27gauge needle was used to infiltrate 1% lidocaine into the skin and subcutaneous tissues. A 21-gaugeneedle was inserted through the anesthetized area and brought down to the periosteum. The needle was withdrawn slightly and aspiration was negative. 0.5 cc of Isovue 300 was injected and deposited over the ischial tuberosity. Methylprednisolone, 40 mg., with bupivacaine, 10 mg (total volume 5 ml.) was injected. The procedure was well tolerated, there were no apparent complications, and the patient had some decrease in pain following the injection of local anesthetic. The procedure was well tolerated, and there were no apparent complications. Dr. Foster was present for, and participated in, the entire procedure. DISPOSITION: Patient was discharged home instable condition. Dennis Foster M.D., Ph.D. Pain Physician [facility]. 05/22/2025 7:41 AM documented in this encounter Plan of Treatment Upcoming Encounters Date Type Department Care Team (Latest Contact Info) Description 06/08/2025 10:55 AM CDT Hospital Encounter [facility] Operating Room [address] [address] [place] [address] Dennis Foster MD [address] [place] [address] Complex regional pain syndrome type 2 of right lower extremity 06/08/2025 10:55 AM CDT - 06/08/2025 1:23 PM CDT Surgery [facility] Operating Room [address] [address] [place] [address] Dennis Foster MD [address] [place] [address] DRG SCS X3 LEADS & IPG REPLACEMENT DELUCA Scheduled Procedures Name Priority Associated Diagnoses Date/Ti al SPINAL CORD DORSAL COLUMN STIMULATOR INSERTION Complex regional pain syndrome type 2 of right lower extremity 06/08/2025 10:55 AM CDT documented as of this encounter Procedures Procedure Name Priority Date/Time Associated Diagnosis Comments XR FLUORO LESS THAN 1 HOUR Routine 05/22/2025 7:49 AM CDT CHG FLUOROSCOPIC GUIDANCE NEEDLE PLACEMENT ADD ON 05/22/2025 7:34 AM CDT Bursitis of other bursa of both hips NH ARTHROCENTESIS ASPIR&/INJ MAJOR JT/BURSA W/O US 05/22/2025 7:34 AM CDT Bursitis of other bursa of both hips documented in this encounter Results * XR FLUORO LESS THAN 1 HOUR (05/22/2025 7:49 AM CDT) Narrative 05/22/2025 7:49 AM CDT Order Auto Finalized. Please see associated Operative Report/Progress Note/Procedure Note from the same date. Loc Isaiah Foster MD DIAGNOSTIC IMAGING ORDERABLES Final Result documented in this encounter Visit Diagnoses Diagnosis Bursitis of other bursa of both hips Complex regional pain syndrome type 2 of right lower extremity documented in this encounter Administered Medications Inactive Administered Medications - up to 3 most recent administrations Medication Order MAR Action Action Date Dose Rate Site iopamidoL (ISOVUE-300) 61% injection (single-use vial) INTRA-PROCEDURE PRN, Starting on Wed05/22/25 at 0745, Until Wed05/22/25 at 0750, Routine, Intra-op Given 05/22/2025 7:45 AM CDT 0.5 mL Operative Site lidocaine PF 1% (XYLOCAINE MPF) injection INTRA-PROCEDURE PRN, Starting on Wed05/22/25 at 0745, Until Wed05/22/25 at 0750, Routine, Intra-op Given 05/22/2025 7:45 AM CDT 10 mL Operative Site ROPivacaine (NAROPIN) 2 mg/mL (0.2 %) injection INTRA-PROCEDURE PRN, Starting on Wed05/22/25 at 0745, Until Wed05/22/25 at 0750, Routine, Intra-op Given 05/22/2025 7:45 AM CDT 8 mL Operative Site triamcinolone acetonide (KENALOG-40) injectable suspension INTRA-PROCEDURE PRN, Starting on Wed05/22/25 at 0745, Until 05/22/25 at 0750, Routine, Intra-op Given 05/22/2025 7:45 AM CDT 80 mg Operative Site documented in this encounter Active and Recently Administered Medications Times are shown in CDT. PRN Medication Order 05/20/2025 05/21/2025 05/22/2025 iopamidoL (ISOVUE-300) 61% injection (single-use vial) (CANCELED) INTRA-PROCEDURE PRN, Starting on 05/22/25 at 0745, Until 05/22/25 at 0750, Routine, Intra-op 0745 (Given - Provid er: Dennis Foster MD) lidocaine PF 1% (XYLOCAINE MPF) injection (CANCELED) INTRA-PROCEDURE PRN, Starting on 05/22/25 at 0745, Until 05/22/25 at 0750, Routine, Intra-op 0745 (Given - Provid er: Dennis Foster MD) ROPivacaine (NAROPIN) 2 mg/mL (0.2 %) injection (CANCELED) INTRA-PROCEDURE PRN, Starting on 05/22/25 at 0745, Until 05/22/25 at 0750, Routine, Intra-op 0745 (Given - Provid er: Dennis Foster MD) triamcinolone acetonide (KENALOG-40) injectable suspension (CANCELED) INTRA-PROCEDURE PRN, Starting on 05/22/25 at 0745, Until 05/22/25 at 0750, Routine, Intra-op 0745 (Given - Provid er: Dennis Foster MD) documented in this encounter Care Teams Public Relations Specialist Relationship Specialty Start Date End Date Marcos Campbell MD [address] [place] [address] PCP - General Internal Medicine 04/03/25 documented as of this encounter
--- OUTSIDE RECORDS SUMMARY | 2025-05-23 12:07 | XMS_ITS | Encounter Summary ---
Author Organization [facility] Address [address] [place] [address] Care Team Providers Care Thoracic Surgeon Name Role Phone Marcos Campbell MD Primary Care Provider + Reason for Visit * Auth/Cert (Routine) Specialty Diagnoses / Procedures Referred By Contac t Referred To Contact Perioperative Diagnoses Bursitis of other bursa of both hips Procedures [place] ARTHROCENTESIS ASPIR&/INJ MAJOR JT/BURSA W/O US B/L ISCHIAL TUBEROSITY INJ (NO BT) ; HIP JOINT INTRAARTICULAR INJECTION Dennis Foster MD [address] [place] [address] Phone: tel: fax: [facility] Operating Room [address] [place] [address] Referral ID Status Reason Start Date Expiration Date Visits Re quested Visits Authorized [id number] 1 1 Encounter Details Date Type Department Care Team (Latest Contact Info) Description 05/22/2025 7:17 AM CDT - 05/22/2025 7:59 AM CDT Hospital Encounter [facility] Pre Post [address] [place] [address] Dennis Foster MD [address] [address] [address] [place] [id number] Bursitis of other bursa of both hips Discharge Disposition: Home or Self Care Social History Tobacco Use Types Packs/Day Years Used Date Smoking Tobacco: Never Alcohol Use Standard Drinks/Week Comments Not Currently 0 (1 standard drink = 0.6 oz pur e alcohol) Comments No Sex and Gender Information Value Date Recorded Sex Assigned at Female 04/30/2024 7:27 PM CDT 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 Gender Identity Female 04/30/2024 7:27 PM CDT Sexual Orientation Not on file documented as of this encounter Last Filed Vital Signs Vital Sign Reading Time Taken Comments Blood Pressure 142/74 05/22/2025 7:52 AM CDT Pulse 76 05/22/2025 7:37 AM CDT Temperature 36.1 C (97 F) 05/22/2025 7:52 AM CDT Respiratory Rate 16 05/22/2025 7:52 AM CDT Oxygen Saturation 96% 05/22/2025 7:52 AM CDT Inhaled Oxygen Concentration - - Weight 92.1 kg (203 lb) 05/09/2025 4:46 PM CDT Height 157.5 cm (5' 2) 05/09/2025 4:46 PM CDT Body Mass Index 37.13 05/09/2025 4:46 PM CDT documented in this encounter Discharge Instructions * Discharge Instructions* Kayla Shelton RN - 05/21/2025 9:23 AM CDT [facility]. STEROID JOINT INJECTION [...] may return until the steroid takes effect. [facility] [address] [address], [address] [place] [address]. documented in this encounter Medications at Time [...] the findings as written. Plan of Care JOURNALISM TEACHER Jenni Tobar on 05/03/25 : Based on [...] BILATERAL Buttock Pain, BILATERAL Ischial Tuberosity Bursitis. INDICATION FOR PROCEDURE: BILATERAL Buttock Pain with [...] condition. Dennis Foster M.D., Ph.D. Pain Physician [facility]. 05/22/2025 7:41 AM documented in this encounter Plan of Treatment Upcoming Encounters Date Type Department Care Team (Latest Contact Info) Description 06/08/2025 10:55 AM CDT Hospital Encounter [facility] Operating Room [address] [address] [place] [address] Dennis Foster MD [address] [address] [address] [place] [id number] Complex regional pain syndrome type 2 of right lower extremity 06/08/2025 10:55 AM CDT - 06/08/2025 1:23 PM CDT Surgery [facility] Operating Room [address] [address] [place] [phone] Dennis Foster MD [address] [address] [address] [place] [phone] DRG SCS X3 LEADS & IPG REPLACEMENT DELUCA Scheduled Procedures Name Priority Associated Diagnoses Date/Ti ky SPINAL CORD DORSAL COLUMN STIMULATOR INSERTION Complex regional pain syndrome type 2 of right lower extremity 06/08/2025 10:55 AM CDT documented as of this encounter Procedures Procedure Name Priority Date/Time Associated Diagnosis Comments XR FLUORO LESS THAN 1 HOUR Routine 05/22/2025 7:49 AM CDT CHG FLUOROSCOPIC GUIDANCE NEEDLE PLACEMENT ADD ON 05/22/2025 7:34 AM CDT Bursitis of other bursa of both hips DC ARTHROCENTESIS ASPIR&/INJ MAJOR JT/BURSA W/O US 05/22/2025 7:34 AM CDT Bursitis of other bursa of both hips documented in this encounter Results * XR FLUORO LESS THAN 1 HOUR (05/22/2025 7:49 AM CDT) Narrative 05/22/2025 7:49 AM CDT Order Auto Finalized. Please see associated Operative Report/Progress Note/Procedure Note from the same date. Dennis Foster MD DIAGNOSTIC IMAGING ORDERABLES Final Result documented in this encounter Visit Diagnoses Not on filedocumented in this encounter Active and Recently Administered Medications Times are shown in CDT. PRN Medication Order 05/20/2025 05/21/2025 05/22/2025 iopamidoL (ISOVUE-300) 61% injection (single-use vial) (CANCELED) INTRA-PROCEDURE PRN, Starting on 05/22/25 at 0745, Until Tue 8 at 0750, Routine, Intra-op 0745 (Given - Provid er: Dennis Foster MD) lidocaine PF 1% (XYLOCAINE MPF) injection (CANCELED) INTRA-PROCEDURE PRN, Starting on Tue 8 at 0745, Until Tue 825 at 0750, Routine, Intra-op 0745 (Given - Provid er: Dennis Foster MD) ROPivacaine (NAROPIN) 2 mg/mL (0.2 %) injection (CANCELED) INTRA-PROCEDURE PRN, Starting on Tue 8 at 0745, Until Tue 825 at 0750, Routine, Intra-op 0745 (Given - Provid er: Dennis Foster MD) triamcinolone acetonide (KENALOG-40) injectable suspension (CANCELED) INTRA-PROCEDURE PRN, Starting on 05/22/25 at 0745, Until Tue 825 at 0750, Routine, Intra-op 0745 (Given - Provid er: Dennis Foster MD) documented in this encounter Care Teams Thoracic Surgeon Relationship Specialty Start Date End Date Marcos Campbell MD [address] [place] [address] (work) PCP - General Internal Medicine 04/03/25 documented as of this encounter
--- OUTSIDE RECORDS SUMMARY | 2025-05-23 12:07 | XMS_ITS | Encounter Summary ---
Author Organization [facility] Healthcare Address [address] [place] [address] Care Team Providers Care Signals Collection Technician Name Role Phone Noah Mccarty MD Primary Care Provider Enid Martin MD Unavailable Richard Rankin DPT Unavailable [phone] Padmini Turner DPT Unavailable Lissett Hernandez DPT Unavailable [phone] Zulay Ghotra DPT Unavailable [phone] Encounter Details Date Type Department Care Team (Late st Contact Info) Description 05/10/2023 Telephone [facility] [address] [facility] [address] [place] [address] Dennis Foster MD PhD [address] [place] [address] Social History Tobacco Use Types Packs/Day Years [...] on file 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 [place] [address] PCP - General 04/26/17 [place] [address] [place] [address] Surgeon Orthopedic Surgery 06/16/18 Richard Rankin DPT [address] [place] [address] Physical Therapist Physical Therapy 12/20/22 Padmini Turner, VAUGHNT [address] [facility] [address] [place], [place] [id number] Physical Therapist Physical Therapy 11/18/23 03/08/24 Lissett Hernandez DPT [address] [facility] [address] [place], [place] [id number] Physical Therapist Physical Therapy 03/09/24 03/09/24 Zulay Ghotra DPT [address] [place], [place] [id number] Referring Physician Physical Therapy 03/09/24 documented as of this encounter
--- OUTSIDE RECORDS SUMMARY | 2025-05-23 12:07 | XMS_ITS | Encounter Summary ---
Author Organization [facility] Address 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 Gender Identity Female 04/30/2024 7:27 PM CDT Sexual Orientation Not on file documented as of this encounter Plan of Treatment Upcoming Encounters Date Type Department Care Team (Latest Contact Info) Description 06/08/2025 10:55 AM CDT Hospital Encounter [facility] Operating Room [address] [address] [place] [address] Dennis Foster MD [address] [address] [address] [place] [address] Complex regional pain syndrome type 2 of right lower extremity 06/08/2025 10:55 AM CDT - 06/08/2025 1:23 PM CDT Surgery [facility] Operating Room [address] [facility] [address] [place] [address] Dennis Foster MD [address] [facility] [address] [place] [address] [...] documented as of this encounter Care Teams Ux Research Associate Relationship Specialty Start Date End Date Marcos Campbell MD [address] [place] [address] PCP - General Internal Medicine 04/03/25 documented as of this encounter
--- OUTSIDE RECORDS SUMMARY | 2025-05-23 12:07 | XMS_ITS | Clinical Summary ---
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 Active fluorometholone (FML) 0.1 % [...] one health Take 4 capsules by mouth 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 Active solifenacin (VESIcare) 5 mg [...] (11/27/2021): Added automatically from request for surgery [id number] Abdominal bloating 11/07/2021 Diverticular disease of colon 11/07/2021 Flatulence 11/07/2021 Lactose intolerance 11/07/2021 Iron deficiency anemia 11/07/2021 Intestinal malabsorption 11/07/2021 Neuropathy of right ulnar nerve at wrist 021 Overview (10/03/2021): Added automatically from request for surgery [id number] Pelvic pain 06/14/2017 Pain in wrist 05/06/2017 History of artificial joint 05/20/2016 Osteoarthritis of hip 02/24/2016 Family history of CREST syndrome Immunizations Immunization Administration Dates Next Due Influenza, Trivalent, IM (MDV) 07/18/2016 Influenza, Trivalent, Preser vative Free, Intramuscular 07/25/2019,07/18/2018,07/23/2015 Influenza, Unspecified 07/11/2021 Surgical History Surgery Date Site/Laterality Comments CO TONSILLECTOMY PRIMARY/SEC ONDARY <AGE 14 10/18/1964 - 10/17/1965 HYSTERECTOMY 10/18/1993 - 10/17/1994 GASTRIC BYPASS 10/18/2003 - 10/17/2004 CO ARTHRP ACETBLR/PROX FEM P ROSTC AGRFT/ALGRFT 10/18/2015 [...] on file 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 Author CCM Chronic Pain Care Plan Chronic Care Management No change(01/27 8:06 AM CDT) Anny Hoover RN Note: Problem: Chronic Pain Goals: 1. Minimize further functional decline 2. Maximize quality of life 3. Control pain Strategies: - Activity/exercise program recommendation - Conservative stepwise pain medicine strategy with multi-disciplinary approach - Recommend healthy lifestyle strategies and compensatory methods as needed Medical Devices Implanted Type Area Farm Service Adviser Device Identifier Shelf Expiration Date Model / Serial / Lot St [employer] Axium Slimtip 1mm 50cm 4 Electrode Lead Front Load Delivery 5mm [id number] - [id number] - [id number] Implanted:Qty: 1 on 08/31/2023 by Dennis Foster MD PhD at [facility] Lead N/A: Epidural Space [employer] 07/22/2024 [id number] / [id number] / [employer] Axium Slimtip 1mm 50cm 4 Electrode Lead Front Load Delivery 5mm [id number] - [id number] - [id number] Implanted:Qty: 1 on 08/31/2023 by Dennis Foster MD PhD at [facility] Lead N/A: Epidural Space [employer] 11/05/2024 [id number] / [id number] / [employer] Axium Slimtip 1mm 50cm 4 Electrode Lead Front Load Delivery 5mm [id number] - [id number] - [id number] Implanted:Qty: 1 on 08/31/2023 by Dennis Foster MD PhD at [facility] Lead N/A: Epidural Space [employer] 03/10/2025 [id number] / [id number] / Rtha-05/07/2005 Implanted:05/07/20 05 (Quantity not on file) Right: Hip [employer] [id number] Seprafilm 6x5in Barrier Adhesion Sterile Disposable Latex Free - [id number] Implanted:Qty: 1 on 10/22/2021 by Ira Marsh MD at [facility] Right: Wrist [facility] Justin [id number] 01/08/2024 [id number] / / [id number] [employer] [id number] Seprafilm 6x5in Barrier Adhesion Sterile Disposable Latex Free - [id number] Implanted:Qty: 1 on 12/09/2021 by Ira Marsh MD at [facility] Advanced [facility] Left: Wrist [facility] Justin [id number] 01/08/2024 [id number] / / [id number] [employer] Axium Slimtip 1mm 50mm Front Load 4 Electrode 5mm Space Lead [id number] - [id number] - [id number] Implanted:Qty: 1 on 05/10/2023 by Dennis Foster MD PhD at [facility] [employer] [id number] 06/09/2024 [id number] 50A / [id number] / [employer] Axium Slimtip 1mm 50mm Front Load 4 Electrode 5mm Space Lead [id number] - [id number] - [id number] Implanted:Qty: 1 on 05/10/2023 by Dennis Foster MD PhD at [facility] [employer] [id number] 08/30/2024 [id number] 50A / [id number] / [employer] Axium Slimtip 1mm 50mm Front Load 4 Electrode 5mm Space Lead [id number]-1/24/2 023 Implanted:05/10/20 by Dennis Foster MD PhD (Quantity not on file) N/A: Back [employer] [id number] 08/30/2024 [id number] 50A / [id number] / [employer] Axium Slimtip 1mm 50mm Front Load 4 Electrode 5mm Space Lead [id number] - [id number] - [id number] Implanted:Qty: 1 on 08/06/2023 by Dennis Foster MD PhD at [facility] [employer] [id number] 07/07/2024 [id number] 50A / [id number] / [employer] Neurostimulator Proclaim Drg Ipg W Iphone Pt Controller [id number] - Jyep001.1 - [id number] Implanted:Qty: 1 on 09/02/2023 by Dennis Foster MD PhD at [facility] N/A: Epidural Space [employer] [id number] SYSXX / [id number] / Insurance [employer] [facility] MEDICARE COMMERCIAL GENERIC MEDICARE [employer] [facility] MEDICARE [facility] Advance Directives For more information, please contact: [phone] Documents on File Type Date Recorded Patient It Field Technician Expl anation ADVANCE DIRECTIVE 09/07/2023 12:37 AM MARIA T ING WILL ADVANCE DIRECTIVE 09/07/2023 12:37 AM POW ER OF DATA PROCESSING CONSULTANT-MEDICAL * Full Code (Latest Code Status on File) Date Activated Date Inactivated Comments 10/22/2021 7:28 PM 10/23/2021 2:52 PM Care Teams Marine Electronics Repairer Relationship Specialty Start Date End Date Noah Mccarty MD [address] [facility] [address] [place] [address] PCP - General 04/26/17 [place] [address] [place] [address] Surgeon Orthopedic Surgery 06/16/18 Richard Rankin DPT [address] [place] [address] Physical Therapist Physical Therapy 12/20/22 Zulay Ghotra DPT [address] [facility] [address] [place] [address] Referring Physician Physical Therapy 03/09/24
--- OUTSIDE RECORDS SUMMARY | 2025-05-23 12:08 | XMS_ITS | Encounter Summary ---
Author Organization [facility] Address [address] [place] [address] Care Team Providers Care Sales Professional Bilingual Name Role Phone Marcos Campbell MD Primary Care Provider + Reason for Visit * Auth/Cert (Routine) Specialty Diagnoses / Procedures Referred By Contalannah t Referred To Contact Perioperative Diagnoses Bursitis of other bursa of both hips Procedures DE ARTHROCENTESIS ASPIR&/INJ MAJOR JT/BURSA W/O US B/L ISCHIAL TUBEROSITY INJ (NO BT) ; HIP JOINT INTRAARTICULAR INJECTION Dennis Foster MD [address] [place] [address] Phone: tel: fax: [facility] Operating Room [address] [facility] [address] [place] [address] Referral ID Status Reason Start Date Expiration Date Visits Re quested Visits Authorized [id number] 1 1 Encounter Details Date Type Department Care Team (Late st Contact Info) Description 05/22/2025 7:45 AM CDT Ancillary Procedure [facility] Operating [address] [facility] [address] [place] [address] Dennis Foster MD [address] [place] [address] Arrived Social History Tobacco Use Types Packs/Day Years Used Date Smoking Tobacco: Never Alcohol Use Standard Drinks/Week Comments Not Currently 0 (1 standard drink = 0.6 oz pur e alcohol) Comments No Sex and Gender Information Value Date Recorded Sex Assigned at Female 04/30/2024 7:27 PM CDT 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 Gender Identity Female 04/30/2024 7:27 PM CDT Sexual Orientation Not on file documented as of this encounter Plan of Treatment Upcoming Encounters Date Type Department Care Team (Latest Contact Info) Description 06/08/2025 10:55 AM CDT Hospital Encounter [facility] Operating Room [address] [address] [place] [address] Dennis Foster MD [address] [address] [address] [place] [address] Complex regional pain syndrome type 2 of right lower extremity 06/08/2025 10:55 AM CDT - 06/08/2025 1:23 PM CDT Surgery [facility] Operating Room [address] [facility] [address] [place] [address] Dennis Foster MD [address] [facility] [address] [place] [address] DRG SCS X3 LEADS & IPG REPLACEMENT [...] Adriana Tyson documented as of this encounter Procedures Procedure Name Priority Date/Time Associated Diagnosis Comments XR FLUORO LESS THAN 1 HOUR Routine 05/22/2025 7:49 AM CDT documented in this encounter Results * XR FLUORO LESS THAN 1 HOUR (05/22/2025 7:49 AM CDT) Narrative 05/22/2025 7:49 AM CDT Order Auto Finalized. Please see associated Operative Report/Progress Note/Procedure Note from the same date. us Loc Isaiah Foster MD DIAGNOSTIC IMAGING ORDERABLES Final Result documented in this encounter Visit Diagnoses Not on filedocumented in this encounter Additional Health Concerns Active Problems Noted Date Diagnosed Date Autogenerated Problem 05/08/2025 documented as of this encounter Care Teams Sales Professional Bilingual Relationship Specialty Start Date End Date Marcos Campbell MD [address] [place] [address] PCP - General Internal Medicine 04/03/25 documented as of this encounter
--- OUTSIDE RECORDS SUMMARY | 2025-05-23 12:08 | XMS_ITS | Clinical Summary ---
Author Organization [facility] Administrative Offices Address [address] [place] [address] Care Team Providers Care Entry Level Programmer Name Role Phone Marcos Campbell MD Primary [...] Take 10 mg by mouth daily. 03/29/20 Active solifenacin (VESICARE) 5 mg Tablet Take 10 mg by mouth daily at bedtime. 08/17/20 [...] as needed. 60 Gram 01/18/20 25 Active acetaminophen-co deine (TYLENOL #4) 300-60 mg tabletIndication s:Chronic use of opiate drug for therapeutic purpose TAKE 1 TABLET BY MOUTH EVERY 4 HOURS NEEDED FOR MODERATE PAIN 180 Tablet 2 04/27/20 25 Active Active Problems Problem Noted Date Diagnosed Date Falls 05/03/2025 Complex regional pain syndro me type 2 [...] (04/27/2024): Added automatically from request for surgery [id number] Diverticular disease of colon 11/07/2021 Intestinal malabsorption 11/07/2021 Iron deficiency anemia 11/07/2021 Lactose intolerance 11/07/2021 Neuropathy of right ulnar nerve at wrist 021 Overview (04/27/2024): Added automatically from request for surgery [id number] Pain in wrist 05/06/2017 History of artificial joint 05/20/2016 Osteoarthritis of hip 02/24/2016 Encounters Date Type Department Care Team Description 05/22/2025 7:45 AM CDT Ancillary Procedure [facility] Operating Room [address] [place] [address] Dennis Foster MD Arrived 05/22/2025 7:34 AM CDT - 05/22/2025 7:46 AM CDT Surgery [facility] Operating Room [address] [place] [address] Dennis Foster MD B/L ISCHIAL TUBEROSITY INJ (NO BT) HIP JOINT INTRAARTICULAR INJECTION 05/22/2025 7:17 AM CDT - 05/22/2025 7:59 AM CDT Hospital Encounter [facility] Pre Post [address] [facility] [address] [place] [address] Dennis Foster MD Bursitis of other bursa of both hips Discharge Disposition: Home or Self Care 05/22/2025 External Device Data STL ABSTRACTION Provider, Abstract 05/22/2025 Travel 05/15/2025 7:30 AM CDT - 05/15/2025 7:42 AM CDT Surgery [facility] Operating Room [address] [facility] [address] [place] [address] Dennis Foster MD Bilateral GTB INJECTION 05/15/2025 7:05 AM CDT Ancillary Procedure [facility] Operating Room [address] [facility] [address] [place] [address] Dennis Foster MD 05/15/2025 6:44 AM CDT - 05/15/2025 7:33 AM CDT Hospital Encounter [facility] Pre Post [address] [facility] [address] [place] [address] Dennis Foster MD Bursitis of both hips, unspecified bursa Discharge Disposition: Home or Self Care 05/15/2025 Travel 05/09/2025 Travel 05/08/2025 Orders Only [facility] [address] [address] [address] [place] [address] Dennis Foster MD 05/08/2025 Telephone [facility] [address] [address] [address] [place] [address] Dennis Foster MD Scheduling Spinal Cord Stimulator 05/03/2025 1:00 PM CDT Office Visit [facility] [address] [address] [address] [place] [address] Jenni Tobar, LINE DECORATOR Ischial bursitis, unspecified laterality (Primary Dx); Complex regional pain syndrome type 2 of right lower extremity; Chronic use of opiate drug for therapeutic purpose; Falls 05/03/2025 Orders Only [facility] [address] [address] [place] [address] Dennis Foster MD 05/02/2025 External Device Data STL ABSTRACTION Provider, Abstract 05/02/2025 Travel 05/01/2025 External Device Data STL ABSTRACTION Provider, Abstract 04/26/2025 Refill [facility] [address] [address] [place] [address] Dennis Foster MD Chronic use of opiate drug for therapeutic purpose 04/10/2025 External Device Data STL ABSTRACTION Provider, Abstract 04/10/2025 External Device Data STL ABSTRACTION Provider, Abstract 04/06/2025 Orders Only [facility] [address] [address] [place] [address] Dennis Foster MD 04/03/2025 11:30 AM CDT Office Visit [facility] [address] [address] [place] [address] Jenni Tobar, LINE DECORATOR Complex regional pain syndrome type 2 of right lower extremity (Primary Dx); Ischial bursitis, unspecified laterality 03/13/2025 External Device Data STL ABSTRACTION Provider, Abstract 03/08/2025 2:30 PM CDT Office Visit [facility] [address] [address] [place] [address] Jenni Tobar, LINE DECORATOR Complex regional pain syndrome type 2 of right lower extremity (Primary Dx); Falls 03/07/2025 External Device Data STL ABSTRACTION Provider, Abstract 03/06/2025 External Device Data STL ABSTRACTION Provider, Abstract 03/05/2025 Abstract [facility] [address] [address] [place] [address] Dennis Foster MD 03/01/2025 9:00 AM CDT - 03/01/2025 9:55 AM CDT Surgery [facility] Operating Room [address] [place] [address] Dennis Foster MD SPINAL CORD DORSAL COLUMN STIMULATOR INSERTION 03/01/2025 8:05 AM CDT Ancillary Procedure [facility] Operating Room [address] [facility] [address] [place] [address] Dennis Foster MD 03/01/2025 7:49 AM CDT - 03/01/2025 10:10 AM CDT Hospital Encounter [facility] Pre Post [address] [place] [address] Dennis Foster MD Causalgia of right lower extremity Discharge Disposition: Home or Self Care 02/20/2025 Abstract [facility] [address] [address] [place] [address] Dennis Foster MD 02/20/2025 Orders Only [facility] [address] [address] [address] [place] [address] Dennis Foster MD from Last 3 Months [...] PM CDT Legal Sex Female 8:35 AM 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 TYPE Gender Identity Female 04/30/2024 7:27 PM CDT [...] - Weight 92.1 kg (203 lb) 05/09/2025 5:07 PM CDT Height 157.5 cm (5' 2) 05/09/2025 5:07 PM CDT Body Mass Index 37.13 05/09/2025 5:07 PM CDT Plan of Treatment Upcoming Encounters Date Type Department Care Team (Latest Contact Info) Description 06/08/2025 10:55 AM CDT Hospital Encounter [facility] Operating Room [address] [address] [place] [address] Dennis Foster MD [address] [place] [address] Complex regional pain syndrome type 2 of right lower extremity 06/08/2025 10:55 AM CDT - 06/08/2025 1:23 PM CDT Surgery [facility] Operating Room [address] [address] [place] [address] Dennis Foster MD [address] [place] [address] DRG SCS X3 LEADS & IPG REPLACEMENT [place] Scheduled Procedures Name Priority Associated Diagnoses Date/Ti me SPINAL CORD DORSAL COLUMN STIMULATOR INSERTION Complex regional pain syndrome type 2 of right lower extremity 06/08/2025 10:55 AM CDT Health Maintenance Due Date Last [...] ) (1 - 1-dose 75+ series) 2032 Goals Goal Patient Goal Type Associated Problems Recent Progress Patient-Stated? Author Autogenera fifi Goal Care Plan Autogenerated Problem No Adriana Tyson Medical Devices Implanted Type Area Silk Screen Painter Device Identifier Shelf Expiration Date Model / Serial / Lot Lead Vectris 1x8 60cm Trial [facility] [id number] - [id number] Implanted:Qty: 1 on 03/01/2025 by Dennis Foster MD at [facility] Lead N/A: Back [employer]- NEUROLOGIC TECH 01/08/2029 [id number] / / [id number] Lead Vectris 1x8 60cm Trial [facility] [id number] - [id number] Implanted:Qty: 1 on 03/01/2025 by Dennis Foster MD at [facility] Lead N/A: Back [employer]- NEUROLOGIC TECH 01/26/2029 [id number] / / [id number] Neuro Stimulator Neuro Stimulator Jimdo- [employer] [id number] / / Description:[email or web address] Fortine Injex Bi-Wing [id number] - [id number] Implanted:Qty: 1 on 03/01/2025 by Dennis Foster MD at [facility] Other N/A: Back [employer]- NEUROLOGIC TECH 12/28/2028 [id number] / / [id number] Hip Replacement Right: Hip Procedures Procedure Name Priority Date/Time Associated Diagnosis Comments XR FLUORO LESS THAN 1 HOUR Routine 05/22/2025 7:49 AM CDT CHG FLUOROSCOPIC GUIDANCE NEEDLE PLACEMENT ADD ON 05/22/2025 7:34 AM CDT Bursitis of other bursa of both hips ME ARTHROCENTESIS ASPIR&/INJ MAJOR JT/BURSA W/O US 05/22/2025 7:34 AM CDT Bursitis of other bursa of both hips CHG FLUOROSCOPIC GUIDANCE NEEDLE PLACEMENT ADD ON 05/15/2025 7:30 AM CDT Bursitis of both hips, unspecified bursa ME ARTHROCENTESIS ASPIR&/INJ MAJOR JT/BURSA W/O US 05/15/2025 7:30 AM CDT Bursitis of both hips, unspecified bursa XR FLUORO LESS THAN 1 HOUR Routine 05/15/2025 7:23 AM CDT XR FLUORO LESS THAN 1 HOUR Routine 03/01/2025 9:19 AM CDT ME ELEC LEANDRO IMPLT NPGT SMPL SP/PN NPGT PRGRMG 03/01/2025 9:00 AM CDT Causalgia of right lower extremity ME PRQ IMPLTJ NSTIM ELECTRODE ARRAY EPIDURAL 03/01/2025 9:00 AM CDT Causalgia of right lower extremity from Last 3 Months Results * XR FLUORO LESS THAN 1 HOUR (05/22/2025 7:49 AM CDT) Only the most recent of3 resultswithin the time period is included. Narrative 05/22/2025 7:49 AM CDT Order Auto Finalized. Please see associated Operative Report/Progress Note/Procedure Note from the same date. us Dennis Foster MD DIAGNOSTIC IMAGING ORDERABLES Final Result from Last 3 Months Additional Health Concerns Active Problems Noted Date Diagnosed Date Autogenerated Problem 05/08/2025 Insurance [place] [id number] MEDICARE PART A AND B FOR LIFE Care Teams Entry Level Programmer Relationship Specialty Start Date End Date Marcos Campbell MD [address] [place] [address] PCP - General Internal Medicine 04/03/25
== END 2025-05-23 11:06 | disposition home or self-care (01) ==
LOC: ANHSURGERY 11:25
PROVIDERS: PCP Internal Medicine; Visit Provider Otolaryngology
DX: R94.31 Abnormal electrocardiogram [ECG] [EKG] (principal); E78.5 Hyperlipidemia, unspecified
CPT/HCPCS: 93005

== ENCOUNTER 2025-05-28 01:07 | Day surgery (SDC) | payer MEDICARE, OTHER, SELFPAY ==
--- NOTE | 2025-05-21 10:08 | PC.NURSE ---
Report to the Outpatient Waiting Room, entrance under the green pavilion located off [facility], at time _12:30 PM on date __05/28/25 . Planned Procedure Time: __2:30 PM .? Time changes happen often and if your time is changed the preop area will call you the afternoon before. - You and your visitor will be asked to self-screen and do not enter if you have any COVID symptoms. Please call surgeon if you need to reschedule. - A mask is optional within the hospital at this time. Patients may have clear liquids (water, carbonated beverages, clear teas, apple juice) until 3 hours prior to surgery ( 11:30 AM) with a maximum of 20 ounces. - No food from midnight until time of surgery and no smoking, or chewing tobacco (or any form of nicotine). No chewing gum, candy or mints. Take only the following medications with a SIP of water on the morning of surgery: __EYE DROPS,FLUOXETINE, PREGABALIN, DO NOT STOP ANY OF YOUR OTHER PRESCRIPTION MEDICATIONS PRIOR TO SURGERY EXCEPT THE FOLLOWING Hold all vitamins and supplements for 3 days per anesthesiologist.LAST DOSE 05/24/25 Medications to discontinue per physician NONE Date to take last dose Please no make-up, nail frisian, hairspray, perfume, deodorant, or body powder the day of surgery.? No jewelry (including any body piercings) or valuables the day of surgery, leave them at home.? Please take a shower or bath the night before, or the morning of, surgery with an antibacterial soap.? Wear comfortable, loose fitting clothing.? Children are encouraged to wear pajamas. - Jewelry must be removed prior to entering the operating room.? Rings and piercings that are not removed may be cut off. - The hospital will not accept responsibility for valuables.? - Please leave all valuables, including medications, at home the day of surgery. If you are going home after surgery, a licensed truck driver flatbed must drive you home.? - NO public transportation without another adult if you receive anesthesia. - We recommend that an adult stay with you for 24 hours following discharge. - We also recommend that you do not drive, make important decision, drink alcoholic beverages, or take any drugs that were not prescribed by your health care provider for at least 24 hours after your discharge time. For Pediatric surgeries, we recommend two adults accompany the child home. Follow any additional instructions given to you from your surgeon. Telephone instructions given to _PATIENT and asked if any additional questions and then verbalized understanding. Patient advised to call surgeon office or pre surgery nurse liaison [phone] if any additional questions.
[2025-05-21 12:13] VITALS: BMI 36.6
[2025-05-28] VITALS (7 sets, daily range): BP systolic 133–177; BP diastolic 61–82; PULSE 66–75; RESP 12–20; TEMP 36.2; O2SAT 95–100
--- OUTSIDE RECORDS SUMMARY | 2025-05-28 01:11 | XMS_ITS | Clinical Summary ---
Author Organization [facility] Address [address] [place] [address] Care Team Providers Care Pool Nurse Name Role Phone Noah Mccarty MD Primary Care Provider Enid Martin MD Unavailable [phone] Richard Rankin DPT Unavailable [phone] Zulay Ghotra DPT Unavailable Allergies Active [...] 1 tablet/capsule (100 mg total) by mouth fuel system maintenance worker before breakfast Active QUEtiapine (SEROquel) 100 mg [...] ORAL)Indications:h ealth Take 1 capsule by mouth fuel system maintenance worker before breakfast Active fluorometholone (FML) 0.1 % [...] one health Take 4 capsules by mouth fuel system maintenance worker before breakfast Active solifenacin (VESIcare) 5 mg [...] (11/27/2021): Added automatically from request for surgery [id number] Abdominal bloating 11/07/2021 Diverticular disease of colon 11/07/2021 Flatulence 11/07/2021 Lactose intolerance 11/07/2021 Iron deficiency anemia 11/07/2021 Intestinal malabsorption 11/07/2021 Neuropathy of right ulnar nerve at wrist 021 Overview (10/03/2021): Added automatically from request for surgery [id number] Pelvic pain 06/14/2017 Pain in wrist 05/06/2017 History of artificial joint 05/20/2016 Osteoarthritis of hip 02/24/2016 Family history of CREST syndrome Immunizations Immunization Administration Dates Next Due Influenza, Trivalent, IM (MDV) 07/18/2016 Influenza, Trivalent, Preser vative Free, Intramuscular 07/25/2019,07/18/2018,07/23/2015 Influenza, Unspecified 07/11/2021 Surgical History Surgery Date Site/Laterality Comments CT TONSILLECTOMY PRIMARY/SEC ONDARY <AGE 14 10/18/1964 - 10/17/1965 HYSTERECTOMY 10/18/1993 - 10/17/1994 GASTRIC BYPASS 10/18/2003 - 10/17/2004 CT ARTHRP ACETBLR/PROX FEM P ROSTC AGRFT/ALGRFT 10/18/2015 [...] on file 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 Gender Identity Female 05/24/2018 1:36 PM CDT [...] as needed Medical Devices Implanted Type Area Sales Representative [employer] Device Identifier Shelf Expiration Date Model / Serial / Lot [employer] Axium Slimtip 1mm 50cm 4 Electrode Lead Front Load Delivery 5mm [id number] - [id number] - [id number] Implanted:Qty: 1 on 08/31/2023 by Dennis Foster MD PhD at [facility] Lead N/A: Epidural Space [employer] 07/22/2024 [id number] 50A / [id number] / [employer] Axium Slimtip 1mm 50cm 4 Electrode Lead Front Load Delivery 5mm [id number] - [id number] - [id number] Implanted:Qty: 1 on 08/31/2023 by Dennis Foster MD PhD at [facility] Lead N/A: Epidural Space [employer] 11/05/2024 [id number] / [id number] / [employer] Axium Slimtip 1mm 50cm 4 Electrode Lead Front Load Delivery 5mm [id number] - [id number] - [id number] Implanted:Qty: 1 on 08/31/2023 by Dennis Foster MD PhD at [facility] Lead N/A: Epidural Space [employer] 03/10/2025 [id number] 50A / [id number] / Rtha-05/07/2005 Implanted:05/07/20 05 (Quantity not on file) Right: Hip [employer] [id number] Seprafilm 6x5in Barrier Adhesion Sterile Disposable Latex Free - [id number] Implanted:Qty: 1 on 10/22/2021 by Ira Marsh MD at [facility] Right: Wrist [facility] [id number] 01/08/2024 [id number] / / [id number] 2 [employer] [id number] Seprafilm 6x5in Barrier Adhesion Sterile Disposable Latex Free - [id number] Implanted:Qty: 1 on 12/09/2021 by Ira Marsh MD at [facility] Left: Wrist [facility] [id number] 01/08/2024 [id number] / / [id number] 2 [employer] Axium Slimtip 1mm 50mm Front Load 4 Electrode 5mm Space Lead [id number] - [id number] - [id number] Implanted:Qty: 1 on 05/10/2023 by Dennis Foster MD PhD at [facility] [employer] [id number] 06/09/2024 [id number] 50A / [id number] / [employer] Axium Slimtip 1mm 50mm Front Load 4 Electrode 5mm Space Lead [id number] - [id number] - [id number] Implanted:Qty: 1 on 05/10/2023 by Dennis Foster MD PhD at [facility] [employer] [id number] 08/30/2024 [id number]- 50A / [id number] / [employer] Axium Slimtip 1mm 50mm Front Load 4 Electrode 5mm Space Lead [id number]/24/2 023 Implanted:05/10/20 by Dennis Fostre MD PhD (Quantity not on file) N/A: Back [employer] [id number] 08/30/2024 [id number] 50A / [id number] / [employer] Axium Slimtip 1mm 50mm Front Load 4 Electrode 5mm Space Lead [id number] - [id number] - [id number] Implanted:Qty: 1 on 08/06/2023 by Dennis Foster MD PhD at [facility] [employer] [id number] 07/07/2024 [id number] 50A / [id number] / [employer] Neurostimulator Proclaim Drg Ipg W Iphone Pt Controller [id number] - [id number] - [id number] Implanted:Qty: 1 on 09/02/2023 by Dennis Foster MD PhD at [facility] N/A: Epidural Space [employer] [id number] [id number] / [id number] / Insurance Analyte Logic [facility] MEDICARE COMMERCIAL GENERIC MEDICARE Analyte [employer] [facility] MEDICARE [facility] Advance Directives For more information, please contact: [phone] Documents on File Type Date Recorded Patient Sales And Marketing Manager Expl anation ADVANCE DIRECTIVE 09/07/2023 12:37 AM MARIA T ING WILL ADVANCE DIRECTIVE 09/07/2023 12:37 AM POW ER OF LICENSED FINAL EXPENSE AGENTS-MEDICAL * Full Code (Latest Code Status on File) Date Activated Date Inactivated Comments 10/22/2021 7:28 PM 10/23/2021 2:52 PM Care Teams Pool Nurse Relationship Specialty Start Date End Date Noah Mccarty MD [address] [facility] [address] [place] [address] PCP - General 04/26/17 [place] [address] [place] [address] Surgeon Orthopedic Surgery 06/16/18 Richard Rankin DPT [address] [place] [address] Physical Therapist Physical Therapy 12/20/22 Zulay Ghotra DPT [address] [facility] [address] [place] [address] Referring Physician Physical Therapy 03/09/24
--- OUTSIDE RECORDS SUMMARY | 2025-05-28 01:11 | XMS_ITS | Encounter Summary ---
Author Organization [facility] Address [address] [place] [address] Phone Care Team Providers Care Assessment Coordinator Name Role Phone Noah Mccarty MD Primary Care Provider Enid Martin MD Unavailable [phone] Richard Rankin DPT Unavailable [phone] Padmini Turner DPT Unavailable [phone] Lissett Hernandez DPT Unavailable [phone] Zulay Ghotra DPT Unavailable [phone] Encounter Details Date Type Department Care Team (Late st Contact Info) Description 12/29/2022 Documentation [facility] Physical Therapy Pain Clinic [address] [facility] 14th [place] [address] [place] [address] Kimberly Davila, PT [address] [facility] [address] [place] [address] Social History Tobacco Use Types Packs/Day Years [...] on file 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 Gender Identity Female 05/24/2018 1:36 PM CDT Sexual Orientation Straight 01/07/2023 7: 48 AM CDT documented as of this encounter Functional Status * AUDIT-C Score Answer Date of Assessment Author 1 12/29/2022 10:16 AM CDT nAny Goldstein RN * Question Answer Date of [...] on filedocumented in this encounter Care Teams Assessment Coordinator Relationship Specialty Start Date End Date Noah Mccarty MD [address] [facility] [address] [facility] [place] [address] PCP - General 7/10/17 [place] [address] [place] [address] Surgeon Orthopedic Surgery 06/16/18 Richard Rankin, DPT [address] [place] [address] Physical Therapist Physical Therapy 12/20/22 Padmini Turner, DPT [address] [facility] [address] [place] [address] Physical Therapist Physical Therapy 11/18/23 03/08/24 Lissett Hernandez DPT [address] [facility] [address] [place] [address] Physical Therapist Physical Therapy 03/09/24 03/09/24 Zulay Ghotra, DPT [address] [facility] [address] [place] [address] Referring Physician Physical Therapy 03/09/24 documented as of this encounter
--- OUTSIDE RECORDS SUMMARY | 2025-05-28 01:11 | XMS_ITS | Encounter Summary ---
Author Organization [facility] Address [facility] [place] [address] Care Team Providers Care Spindle Setter Name Role Phone Noah Mccarty MD Primary Care Provider [phone] Khoa Bee MD Primary Care Provider Encounter Details Date Type Department Care Team (Latest Contact Info) Description 08/23/2018 Abstract [facility] , Armando Ramos MD Social History Tobacco Use Types Packs/Day Years Used Date Smoking Tobacco: Never Assessed Comments Unknown Sex and Gender Information Value Date Recorded Sex Assigned at Female 11/27/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 - Physical Therapy [address] [place] [address] Mandeep [place]ates, [place] [address] documented as of this encounter Visit Diagnoses Not on filedocumented in this encounter Care Teams Spindle Setter Relationship Specialty Start Date End Date Noah Mccarty MD [address] [place] [address] [place] [address] PCP - General INTERNAL MEDICINE 11/15/18 01/31/25 Khoa Bee MD [address] [place] [address] [place]EL[place] Demarco [address] PCP - General INTERNAL MEDICINE 02/01/25 documented as of this encounter
--- OUTSIDE RECORDS SUMMARY | 2025-05-28 01:11 | XMS_ITS | Clinical Summary ---
Author Organization [facility] Address [address] [place] [address] Care Team Providers Care Lime Plant Operator Name Role Phone Khoa Bee MD Primary [...] Type Department Care Team Description 04/17/2025 Telephone [facility] Physical [address] [id number] Gabby Escamilla PRESIDENT AND CHIEF EXECUTIVE OFFICER Called To Cancel Office Appt. 04/10/2025 8:45 AM CDT Office Visit [facility] Physical [address] [id number] Dennis Foster MD Meyer, Debra S, PTA Balance Problem 04/10/2025 Travel 04/06/2025 9:30 AM CDT Office Visit [facility] Physical [address] [address] Dennis Foster MD Mueller, Abbie T, PRESIDENT AND CHIEF EXECUTIVE OFFICER Balance Problem 04/06/2025 Travel 04/02/2025 9:30 AM CDT Office Visit [address] [address] Dennis Foster MD Kuelker, Allyson R, PT Balance Problem 04/02/2025 Travel 03/23/2025 9:30 AM CDT Office Visit [address] [address] Dennis Foster MD Mueller, Abbie T, PRESIDENT AND CHIEF EXECUTIVE OFFICER Balance Problem 03/23/2025 Travel 03/19/2025 9:30 AM CDT Office Visit [address] [address] Dennis Foster MD Kuelker, Allyson R, PT Balance Problem 03/19/2025 Travel 03/16/2025 9:30 AM CDT Office Visit [address] [address] eDnnis Foster MD Mueller, Abbie T, PRESIDENT AND CHIEF EXECUTIVE OFFICER Balance Problem 03/16/2025 Travel 03/14/2025 11:00 AM CDT Office Visit [address] [address] Dennis Foster MD Kuelker, Allyson R, PT Balance Problem 03/14/2025 Travel 03/05/2025 8:30 AM CDT Office Visit [address] [address] Dennis Foster MD Kuelker, Allyson R, PT Balance Problem (Initial evaluation) 03/05/2025 Travel from Last 3 Months Social History [...] from your doctor or pharmacy? Never 02/01/2025 [facility] Utilities Answer Date Recorded In the past 12 months has e iPa[employer], oil, or water [employer] threatened to shut off services in your [...] week 02/01/2025 How often do you attend [facility] or pentecostal services? More than 4 times per year 02/01/2025 Do you belong to any clubs o r organizations such as taoist groups, unions, fraternal or athletic groups, or [...] and heating? Not hard at all 02/01/2025 [facility] - Occupational Stress [...] any time in the past [address] [facility], were you homeless or living in a penitentiary (including now)? 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 Legal Sex Female 6:09 PM CDT Gender [...] 02/01/2025 5:33 AM CDT Plan of Treatment Upcoming Encounters Date Type Department Care Team (Late st Contact Info) Description 06/12/2025 1:30 PM CDT Office Visit [facility] - Physical Therapy [address] [place] [address] Mandeep Coates, PT [place], [place] [address] Health Maintenance Due Date Last Done Comments Colorectal Cancer Screening Colonoscopy (10 Years) 1955 Hepatitis C 1975 DTaP, Tdap and Td Vaccines ( 1 - Tdap) 1976 Zoster Vaccines (2 of 3) 06/13/2012 04/18/2012 Mammogram Screening 05/24/2015 05/24/2013, 05/08/2013 Annual Medicare Wellness Visit 2022 Dexa Scan (General) 2022 Pneumococcal Vaccine: 50+ Years (2 of 2 - PCV) 02/11/2023 02/11/2022, 08/28/2020 COVID-19 Vaccine ( - 2023-2 5 season) 2024 RSV Immunization [...] and discharge planning Lifestyle No Galindo Quezada, field cane scale clerk Procedure Name Priority Date/Time Associated Diagnosis Comments MG DIAGNOSTIC RT DIGI Routine 05/24/2013 1:09 PM CDT from Last 3 Months or Most Recently Relevant to Health Maintenance Results * MG DIAGNOSTIC RT DIGI (05/24/2013 1:09 PM CDT) Anatomical Region Laterality Modality Breast Right Mammography 05/24/2013 1:09 PM CDT 05/24/2013 1:09 PM CDT Narrative 05/24/2013 4:31 PM CDT SCOTT GARCIA MD: ROSARIO KIRBY DO ACCT: [id number] : 1955 PT TYPE: REG CLI SEX: F ORD SITE: [facility] IMAGING STUDY DATE REPORT # PROCEDURE CODE PROCEDURE 05/24/13 [id number] DXMAMDIGRT MG DIAGNOSTIC MAMMO DIGITAL RT EXTORDERID [id number] ACCESSION NUMBER [id number] CHART DOCUMENT IMPRESSION: MULTIPLE TINY CLUSTERS OF [...] M.D. 05/24/2013 16:30 ROBERT PANTOJA M.D. P #[id number] P/MA CC: ROSARIO KIRBY D.O. Radiology image is available. Click on Image Link above. Procedure Note Armando Fox, - 08/11/2018 SCOTT GARCIA ORDERING MD: ROSARIO KIRBY DO ACCT: [id number] : 1955 PT TYPE: REG CLI SEX: F ORD SITE: [facility] OUTPT IMAGING STUDY DATE REPORT # PROCEDURE CODE PROCEDURE 05/24/13 [id number] DXMAMDIGRT MG DIAGNOSTIC MAMMO DIGITAL RT EXTORDERID [id number] ACCESSION NUMBER [id number] CHART DOCUMENT IMPRESSION: MULTIPLE TINY CLUSTERS OF [...] M.D. 05/24/2013 16:30 ROBERT PANTOJA M.D. P #[id number] P/MA CC: ROSARIO KIRBY D.O. Radiology image is available. Click on Image Link above. us Rosario Kirby DO MAMMO Final Result from Last 3 Months or Most Recently Relevant to Health Maintenance Insurance MEDICARE [facility] Advance Directives * POLST (Latest Code Status [...] None - No Artificial Nutrition Care Teams Lime Plant Operator Relationship Specialty Start Date End Date Khoa Bee MD [address] [facility] [place] [address] PCP - General INTERNAL MEDICINE 02/01/25
--- OUTSIDE RECORDS SUMMARY | 2025-05-28 01:11 | XMS_ITS | Encounter Summary ---
Author Organization [facility] Address [address] [place] [address] Care Team Providers Care Conductor Road Freight Name Role Phone Noah Mccarty MD Primary Care Provider Enid Martin MD Unavailable Richard Rankin DPT Unavailable [phone] Padmini Turner DPT Unavailable Lissett Hernandez DPT Unavailable [phone] Zulay Ghotra DPT Unavailable [phone] Encounter Details Date Type Department Care Team (Late st Contact Info) Description 05/10/2023 Telephone [facility] [address] [facility] Advanced [facility] [address] [place] [address] Dennis Foster MD PhD [address] [place] [address] Social History Tobacco Use Types Packs/Day Years [...] on file 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 Gender Identity Female 05/24/2018 1:36 PM CDT [...] on filedocumented in this encounter Care Teams Conductor Road Freight Relationship Specialty Start Date End Date Noah Mccarty MD [address] [facility] [address] [place] [address] PCP - General 04/26/17 [place] [address] [place] [address] Surgeon Orthopedic Surgery 06/16/18 Richard Rankin DPT [address] [place] [address] Physical Therapist Physical Therapy 12/20/22 Padmini Turner, VAUGHNT [address] [facility] [address] [place], [place] [id number] Physical Therapist Physical Therapy 11/18/23 03/08/24 Lissett Hernandez DPT [address] [facility] [address] [place], [place] [id number] Physical Therapist Physical Therapy 03/09/24 03/09/24 Zulay Ghotra DPT [address] [place], [place] [address] Referring Physician Physical Therapy 03/09/24 documented as of this encounter
--- OUTSIDE RECORDS SUMMARY | 2025-05-28 01:11 | XMS_ITS | Clinical Summary ---
Author Organization [facility] Administrative Offices Address [address] [place] [address] Care Team Providers Care Cat Hooker Name Role Phone Marcos Campbell MD Primary [...] (04/27/2024): Added automatically from request for surgery [id number] Diverticular disease of colon 11/07/2021 Intestinal malabsorption 11/07/2021 Iron deficiency anemia 11/07/2021 Lactose intolerance 11/07/2021 Neuropathy of right ulnar nerve at wrist 021 Overview (04/27/2024): Added automatically from request for surgery [id number] Pain in wrist 05/06/2017 History of artificial joint 05/20/2016 Osteoarthritis of hip 02/24/2016 Encounters Date Type Department Care Team Description 05/22/2025 7:45 AM CDT Ancillary Procedure [facility] Operating Room [address] [place] [address] Dennis Foster MD 05/22/2025 7:34 AM CDT - 05/22/2025 7:46 AM CDT Surgery [facility] Operating Room [address] [place] [address] Dennis Foster MD B/L ISCHIAL TUBEROSITY INJ (NO BT) HIP JOINT INTRAARTICULAR INJECTION 05/22/2025 7:17 AM CDT - 05/22/2025 7:59 AM CDT Hospital Encounter [facility] Pre Post [address] [facility] [address] [place] [address] Dennis Foster MD Bursitis of other bursa of both hips Discharge Disposition: Home or Self Care 05/22/2025 External Device Data STL ABSTRACTION Provider, Abstract 05/22/2025 Travel 05/15/2025 7:30 AM CDT - 05/15/2025 7:42 AM CDT Surgery [facility] Operating Room [address] [facility] [address] [place] [address] Dennis Foster MD Bilateral GTB INJECTION 05/15/2025 7:05 AM CDT Ancillary Procedure [facility] Operating Room [address] [facility] [address] [place] [address] Dennis Foster MD 05/15/2025 6:44 AM CDT - 05/15/2025 7:33 AM CDT Hospital Encounter [facility] Pre Post [address] [facility] [address] [place] [address] Dennis Foster MD Bursitis of both hips, unspecified bursa Discharge Disposition: Home or Self Care 05/15/2025 Travel 05/09/2025 Travel 05/08/2025 Orders Only [facility] [address] [place] [address] Dennis Foster MD 05/08/2025 Telephone [facility] [address] [place] [address] Dennis Foster MD Scheduling Spinal Cord Stimulator 05/03/2025 1:00 PM CDT Office Visit [facility] [address] [place] [address] Jenni Tobar, CONTAINER CRANE OPERATOR Ischial bursitis, unspecified laterality (Primary Dx); Complex regional pain syndrome type 2 of right lower extremity; Chronic use of opiate drug for therapeutic purpose; Falls 05/03/2025 Orders Only [facility] [address] [place] [address] Dennis Foster MD 05/02/2025 External Device Data STL ABSTRACTION Provider, Abstract 05/02/2025 Travel 05/01/2025 External Device Data STL ABSTRACTION Provider, Abstract 04/26/2025 Refill [facility] [address] [place] [address] Dennis Foster MD Chronic use of opiate drug for therapeutic purpose 04/10/2025 External Device Data STL ABSTRACTION Provider, Abstract 04/10/2025 External Device Data STL ABSTRACTION Provider, Abstract 04/06/2025 Orders Only [facility] [address] [place] [address] Dennis Foster MD 04/03/2025 11:30 AM CDT Office Visit [facility] [address] [place] [address] Jenni Tobar, CONTAINER CRANE OPERATOR Complex regional pain syndrome type 2 of right lower extremity (Primary Dx); Ischial bursitis, unspecified laterality 03/13/2025 External Device Data STL ABSTRACTION Provider, Abstract 03/08/2025 2:30 PM CDT Office Visit [facility] [address] [place] [address] Jenni Tobar, CONTAINER CRANE OPERATOR Complex regional pain syndrome type 2 of right lower extremity (Primary Dx); Falls 03/07/2025 External Device Data STL ABSTRACTION Provider, Abstract 03/06/2025 External Device Data STL ABSTRACTION Provider, Abstract 03/05/2025 Abstract [facility] [address] [place] [address] Dennis Foster MD 03/01/2025 9:00 AM CDT - 03/01/2025 9:55 AM CDT Surgery [facility] Operating Room [address] [place] [address] Dennis Foster MD SPINAL CORD DORSAL COLUMN STIMULATOR INSERTION 03/01/2025 8:05 AM CDT Ancillary Procedure [facility] Operating Room [address] [place] [address] Dennis Foster MD 03/01/2025 7:49 AM CDT - 03/01/2025 10:10 AM CDT Hospital Encounter [facility] Pre Post [address] [place] [address] Dennis Foster MD Causalgia of right lower extremity Discharge Disposition: Home or Self Care from Last 3 Months Immunizations Immunization Administration [...] PM CDT 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 Female 8:35 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 Gender Identity Female 04/30/2024 7:27 PM CDT [...] Care Team (Latest Contact Info) Description 06/08/2025 12:51 PM CDT Hospital Encounter [facility] Operating Room [address] [address] [place] [address] Dennis Foster MD [address] [place] [address] Complex regional pain syndrome type 2 of right lower extremity 06/08/2025 12:51 PM CDT - 06/08/2025 3:19 PM CDT Surgery [facility] Operating Room [address] [address] [place] [address] Dennis Foster MD [address] [place] [address] DRG SCS X3 LEADS & IPG REPLACEMENT [place] Scheduled Procedures Name Priority Associated Diagnoses Date/Ti me SPINAL CORD DORSAL COLUMN STIMULATOR INSERTION Complex regional pain syndrome type 2 of right lower extremity 06/08/2025 12:51 PM CDT Health Maintenance Due Date Last Done [...] Adriana [employer] Implanted Type Area Drywall Application Supervisor Device Identifier Shelf Expiration Date Model / Serial / Lot Lead Vectris 1x8 60cm Trial [facility] [id number] - [id number] Implanted:Qty: 1 on 03/01/2025 by Dennis Foster MD at [facility] Lead N/A: Back [employer]- NEUROLOGIC TECH 01/08/2029 [id number] / / [id number] Lead Vectris 1x8 60cm Trial [facility] [id number] - [id number] Implanted:Qty: 1 on 03/01/2025 by Dennis Foster MD at [facility] Lead N/A: Back [employer]- NEUROLOGIC TECH 01/26/2029 [id number] / / [id number] Neuro Stimulator Neuro Stimulator [employer]- [employer] 3664 / / Description:[email or web address]/[email or web address]/mr [email or web address]-sup [email or web address]-[email or web address].html [employer] 93514 - [id number] Implanted:Qty: 1 on 03/01/2025 by Dennis Foster MD at [facility] Other N/A: Back [employer]- NEUROLOGIC TECH 12/28/2028 [id number] / / [id number] Total Hip Replacement Right: Hip Procedures Procedure Name Priority Date/Time Associated Diagnosis Comments XR FLUORO LESS THAN 1 HOUR Routine 05/22/2025 7:49 AM CDT G FLUOROSCOPIC GUIDANCE NEEDLE PLACEMENT ADD ON 05/22/2025 7:34 AM CDT Bursitis of other bursa of both hips RI ARTHROCENTESIS ASPIR&/INJ MAJOR JT/BURSA W/O US 05/22/2025 7:34 AM CDT Bursitis of other bursa of both hips CHG FLUOROSCOPIC GUIDANCE NEEDLE PLACEMENT ADD ON 05/15/2025 7:30 AM CDT Bursitis of both hips, unspecified bursa RI ARTHROCENTESIS ASPIR&/INJ MAJOR JT/BURSA W/O US 05/15/2025 7:30 AM CDT Bursitis of both hips, unspecified bursa XR FLUORO LESS THAN 1 HOUR Routine 05/15/2025 7:23 AM CDT XR FLUORO LESS THAN 1 HOUR Routine 03/01/2025 9:19 AM CDT RI ELEC LEANDRO IMPLT NPGT SMPL SP/PN NPGT PRGRMG 03/01/2025 9:00 AM CDT Causalgia of right lower extremity RI PRQ IMPLTJ NSTIM ELECTRODE ARRAY EPIDURAL 03/01/2025 [...] Date Diagnosed Date Autogenerated Problem 05/08/2025 Insurance MEDICARE PART A AND B [facility] Care Teams Cat Hooker Relationship Specialty Start Date End Date Marcos Campbell MD [address] [place] [address] PCP - General Internal Medicine 04/03/25
--- NOTE | 2025-05-28 12:09 | WPDHPUPDATE1 ---
History and Physical Update Update Date/Time: 05/28/25 12:09 History and Physical has been reviewed, including an updated exam of the patient. There are NO changes in the patient's condition. Risks, benefits, and alternatives have been discussed and questions answered. Patient agrees to proceed with procedure.
--- NOTE | 2025-05-28 12:15 | WPDHPUPDATE1 ---
History and Physical Update Update Date/Time: 05/28/25 12:15 Planned procedure. Right sided endoscopic maxillary antrostomy with tissue removal. Possible septoplasty.
[2025-05-28] MEDS: ACETAMINOPHEN 500 MG TABLET 1000 MG PO (13:00)
--- NOTE | 2025-05-28 13:34 | WPDANESEPPF ---
Anes - Initial Pre Proc Eval Procedure: Operation Date: 05/28/25 13:30 Proposed Procedures p Image Guided Right Side Endoscopic Maxillary Antrostomy with Tissue Removal, Bilateral Inferior Turbinate Reduction with Outfracture - Thiago Peterson MD Date/Time: 05/28/25 13:34 Surgeon: Thiago Peterson MD Pre Op Diagnosis: chronic maxillary sinusitis,deviated septum Patient Data Age: 69 Gender: F Height: 1.57 m Weight: 88.2 kg Last Vital Signs Temp 36.2 C L 05/28/25 12:56 Pulse 74 05/28/25 12:56 Resp 16 05/28/25 12:56 BP 139/77 05/28/25 12:56 Pulse Ox 98 05/28/25 12:56 O2 Del Method Room Air 05/28/25 12:56 Allergies Allergy/AdvReac Type Severity Reaction Status Date / Time olanzapine (From Zyprexa) Allergy Intermediate Nightmare Verified 05/21/25 10:08 oxycodone AdvReac Intermediate Other Verified 05/21/25 10:08 lactose AdvReac Mild Diarrhea Verified 05/21/25 10:08 naproxen (From Aleve) AdvReac Mild Agitated Verified 05/21/25 10:08 Red beets Allergy Intermediate Hives Uncoded 05/21/25 10:08 artificial coating AdvReac Mild Agitated Uncoded 05/21/25 10:08 Home Medications ?Medication ?Instructions ?Recorded ?Confirmed ?Type Componmd Nerve Relief Lotion topical 03/22/25 05/02/25 History acetaminophen 300 mg-codeine 60 mg 1 tablet PO Q4H PRN pain 03/22/25 05/28/25 History tablet alprazolam 0.5 mg tablet 0.5 mg PO TID PRN anxiety 03/22/25 05/28/25 History amitriptyline 100 mg tablet 200 mg PO QHS 03/22/25 05/21/25 History azelastine 137 mcg (0.1 %) nasal 137 mcg intranasal Q12H PRN 03/22/25 05/21/25 History spray allergey symptoms colestipol 1 gram tablet 1 g PO BID 03/22/25 05/21/25 History cyclobenzaprine 5 mg tablet 5 mg PO TID PRN muscle spasm 03/22/25 05/21/25 History cyclosporine 0.05 % eye drops in a 1 drp EACH EYE Q12H 03/22/25 05/21/25 History dropperette epinastine 0.05 % eye drops 1 drp EACH EYE Q12H 03/22/25 05/21/25 History fluoxetine 40 mg capsule 40 mg PO DAILY 03/22/25 05/28/25 History furosemide 20 mg tablet 60 mg PO DAILY 03/22/25 05/21/25 History meloxicam 15 mg tablet 15 mg PO DAILY 03/22/25 05/28/25 History potassium chloride 20 meq BYMOUTH HS 03/22/25 05/21/25 History pregabalin 165 mg tablet, extended 165 mg PO TID 03/22/25 05/28/25 History release 24 hr (Lyrica CR) ropinirole 1 mg tablet 2 mg PO HS 03/22/25 05/21/25 History rosuvastatin 10 mg tablet 10 mg PO DAILY #90 tabs 03/22/25 05/21/25 Rx solifenacin 10 mg tablet (Vesicare) 10 mg PO HS 03/22/25 05/21/25 History spironolactone 25 mg tablet 25 mg PO DAILY 03/22/25 05/21/25 History valacyclovir 1 gram tablet 1,000 mg PO DAILY PRN cold sores 03/22/25 05/21/25 History zolpidem 10 mg tablet 10 mg PO QHS PRN sleep 03/22/25 05/21/25 History nitrofurantoin 100 mg PO Q12H #50 caps 03/26/25 05/21/25 Rx monohydrate/macrocrystals 100 mg capsule (Macrobid) doxycycline hyclate 100 mg tablet 100 mg PO PRN 04/02/25 05/21/25 History tizanidine 4 mg tablet 4 mg PO DAILY PRN muscle spasticity 04/02/25 05/21/25 History ciprofloxacin HCl 500 mg tablet 500 mg PO Q12H chronic maxillary 04/09/25 05/21/25 Rx (Cipro) sinusitis right #20 tabs semaglutide 3 mg tablet (Rybelsus) 3 mg PO DAILY #30 tabs 05/02/25 05/21/25 Rx topiramate 25 mg tablet 25 mg PO BID #60 tabs 05/07/25 05/21/25 Rx budesonide 0.25 mg/2 mL suspension 0.25 mg (2 mL) irrigation BID #60 05/26/25 Rx for nebulization amps Patient hx anesthesia problems: none Family hx anesthesia problems: none Results Review: All pre-operative results and documents have been reviewed as part of the pre-operative evaluation. [facility] Past Medical History Medical History Cervicalgia BMI 36.0-36.9,adult Headaches due to old head injury Follow up Pedal edema Vitamin D deficiency Fall Hx of colonic polyps Colon cancer screening Breast cancer screening CRPS (complex regional pain syndrome) Peripheral neuropathy Anxiety and depression Insomnia BMI 30.0-30.9,adult On longterm drug therapy Hyperlipidemia Encounter to establish care Surgical History Surgical History Hx of gastric bypass Social History Social History Smoking status: Never smoker Second hand tobacco smoke exposure: No Alcohol intake: current Drinks per week: 1 Alcohol use details: monthly Substance use: current Substance use type: painkillers Living arrangements: with family Occupation/Education: retired Gender identity (if verbalized by the patient): Female Spiritual care concerns: No Anes - Eval Final PreProcedure Day of Procedure 05/28/25 13:34 Patient weight: obese Heart: regular rate and rhythm Lungs: clear to auscultation Airway: Mallampati scale class II Neurological: alert and oriented Last oral intake: >/= 8 hours ASA classification: III Emergent: no Anesthetic plan: proceed Anesthesia type and monitoring: general ETT and standard monitoring Results Review: All pre-operative results and documents have been reviewed as part of the pre-operative evaluation. Informed Consent: The patient's anesthetic plan and its attendant risks and benefits were discussed with the patient/family/POA. Questions were solicited and answers provided to the satisfaction of the patient/family/POA.
[2025-05-28] MEDS: ceFAZolin 2 GM in SODIUM CHLORIDE 0.9% IV 50 ML 100 ML IVPB (14:04)
[2025-05-28] MEDS: LIDO 1%/EPINEPHRINE 1:100,000 50 ML VIAL INFILTRATE (14:25)
[2025-05-28] MEDS: OXYMETAZOLINE HCL 0.05% NAS 15 ML BTL (*BKC) 1 SPRAY NASAL (14:25)
[2025-05-28] MEDS: MUPIROCIN 2% OINT 22 GM TUBE 1 APPLIC TOPICAL (15:19)
[2025-05-28] MEDS: LACTATED RINGERS 1,000 ML 30 ML IV CONT ×2 (15:50)
--- NOTE | 2025-05-28 16:33 | P.OP_ITS ---
Procedure Note - Detailed Date of Procedure 05/28/25 Pre-op Diagnosis chronic maxillary sinusitis,deviated septum, allergic fungal sinusitis Post-op Diagnosis Same Procedure Performed Endoscopic right-sided image guided maxillary antrostomy with tissue removal, endoscopic assisted septoplasty Surgeon Thiago Peterson MD Anesthesia General Indications See above Findings Deviated septum was in the way of the sinus could get in there had to straight the septum excess bleeding, not life-threatening but there was excess bleeding. Copious amounts of fungal debris in the right maxillary sinus. No purulence which was nice. Description of Procedure Patient identified consent verified the preoperative holding ear. Patient brought to the operating. Time-out performed. General anesthesia induced endotracheal tube secured airway. Patient prepped draped position procedure confirmed 2nd time-out performed. Image guidance initiated confirmed. Right- sided viewed with the 0 degree scope could get into bed decision made make septum perform septoplasty total 9 cc 1% lidocaine with 1 100 cell part 1000 parts epinephrine checked the bilateral nasal septum. Kendrick incision made left-sided nasal septal flap elevated no tears crust over several cm behind the incision about 1 cm behind the incision. Right nasal septal flap elevated. There was a perforation high non opposing on the left side. Deviated septum re moved excess bleeding controlled with application of FloSeal in dry pledgets. Septum washed out closed with 3 interrupted 504 interrupted 5 0 fast gut sutures. Attention was then turned to the right maxillary sinus middle turbinate medialized. Id under image guidance double ball tip probe straight through cut backbiter use to create the antrostomy then we got irrigating removing fungus we irrigated with a total of almost a L of sterile normal saline to get the fungus out including the use the hydro debrider. Once was confirmed all the fungus was out I checked the bronchoscope flexed into the sinus nor fungal debris remained. Limon splints were placed and sutured anteriorly using a 3-0 mattress nylon suture. Limon splint on the right side was confirmed to be lateral to the middle turbinate the end the case. Patient tolerated the procedure well no complications. Blood loss 75 cc. I performed all dictated portions procedure no complications patient taken to PACU. Estimated Blood Loss 75 Drains No Packing No Pathology None sent Complications No immediate complications Condition Stable Disposition PACU [facility] Billing Surgery - Charge Forward: Surgery Billing
== END 2025-05-28 17:21 | disposition home or self-care (01) ==
PROVIDERS: PCP Internal Medicine; Visit Provider Otolaryngology
PROC: (CPT 31267; principal; 2025-05-28 13:30)
DX: J34.2 Deviated nasal septum (principal); J34.3 Hypertrophy of nasal turbinates; J32.0 Chronic maxillary sinusitis; J30.89 Other allergic rhinitis; G89.18 Other acute postprocedural pain; J34.89 Other specified disorders of nose and nasal sinuses; R09.81 Nasal congestion; E78.5 Hyperlipidemia, unspecified; E55.9 Vitamin D deficiency, unspecified; H91.8X3 Other specified hearing loss, bilateral; H81.10 Benign paroxysmal vertigo, unspecified ear; G62.9 Polyneuropathy, unspecified; F41.8 Other specified anxiety disorders; G47.00 Insomnia, unspecified; E66.9 Obesity, unspecified; Z68.35 Body mass index [BMI] 35.0-35.9, adult; Z98.84 Bariatric surgery status; Z86.0100 Personal history of colon polyps, unspecified
CPT/HCPCS: 31267; 30520; J0690; A9270; J0330; J1100; J2003; J2004; J2405; J2704; J3010; J7050; J7120

== ENCOUNTER 2025-06-12 07:20 | Emergency (ER) | payer MEDICARE, OTHER, SELFPAY ==
--- NOTE | ~2025-06-12 | CT_ITS ---
EXAMINATION: CT BRAIN W/O DATE: 06/12/2025 08:04 INDICATION: Status post fall. Trauma to the head. TECHNIQUE: Computed tomography (CT) of the head was performed without intravenous contrast. The dose-length product was 681.00 mGy-cm. Automated exposure control and iterative reconstruction technique were employed. COMPARISON: No prior studies for comparison. FINDINGS: Normal brain parenchymal volume for age. Normal jain-white differentiation. No acute intracranial hemorrhage, infarction, mass or mass effect. Large scalp hematoma. No ventriculomegaly or midline shift. Midline sagittal images demonstrate a normal corpus callosum, craniovertebral junction and sella turcica. Basilar cisterns are patent. There is mucosal thickening of the right maxillary sinus. Mastoids are pneumatized. No depressed skull fractures. IMPRESSION: 1. No acute intracranial abnormality. Reviewed, dictated and finalized at location O.
--- NOTE | ~2025-06-12 | XR_ITS ---
EXAMINATION: XR shoulder RT min 2V DATE: 06/12/2025 10:29 INDICATION: Fall. TECHNIQUE: 4 images of the right shoulder were obtained. COMPARISON: None FINDINGS: Mildly displaced and comminuted fracture of the middle third of the right clavicle. No fracture of the scapula identified. No dislocation of the right humeral head relative to the right glenohumeral joint. Mild degenerative change in the right glenohumeral joint. IMPRESSION: Mildly displaced and comminuted fracture of the middle third of the right clavicle. No fracture of the scapula identified. Reviewed, dictated and finalized at location Q. IMPRESSION: Mildly displaced and comminuted fracture of the middle third of the right clavi tatyana. No fracture of the scapula identified.
--- NOTE | ~2025-06-12 | CT_ITS ---
EXAMINATION: CT thoracic lumbar wo con DATE: 06/12/2025 08:05 INDICATION: Status post fall. Trauma. TECHNIQUE: Computed tomography (CT) of the thoracic and lumbar spine was performed without intravenous contrast. The dose-length product was 1927.17 mGy- cm. Automated exposure control and iterative reconstruction technique were employed. COMPARISON: None FINDINGS: There is a T8 compression fracture with approximately 10% loss of vertebral body height, possibly acute. There is a T11 compression fracture with mild loss of vertebral body height, possibly acute. There is moderate spondylosis at L2-3. No acute fracture of the lumbar spine identified. There is levocurvature of the lumbar spine. There is a catheter overlying the right sacrum and L5 vertebra of uncertain etiology. IMPRESSION: 1. Mild compression fractures of T8 and T11, possibly acute/subacute. Recommend correlation with MRI. Reviewed, dictated and finalized at location O.
--- NOTE | ~2025-06-12 | CT_ITS ---
EXAMINATION: CT cervical spine wo con DATE: 06/12/2025 08:05 INDICATION: Status post fall. Neck pain. TECHNIQUE: Computed tomography (CT) of the cervical spine was performed without intravenous contrast. The dose-length product was 338 mGy-cm. Automated exposure control and iterative reconstruction technique were employed. COMPARISON: CT dated 04/05/2025 FINDINGS: Craniovertebral junction is normal. Odontoid process within normal limits. There is degenerative anterolisthesis at C3-4, C4-5. There is disc narrowing and endplate hypertrophy at C5-6 and C6-7. There is multilevel uncinate and facet hypertrophy. No acute fracture, subluxation or dislocation. No paraspinal soft tissue abnormality. IMPRESSION: 1. No acute abnormality of the cervical spine. Reviewed, dictated and finalized at location O.
--- NOTE | ~2025-06-12 | XR_ITS ---
Clinical history:Fall. Right lower scapular pain EXAM:X-ray scapula right TECHNIQUE:3 images of the right scapula were obtained. Comparisons:None available FINDINGS: Mildly displaced and comminuted fracture of the middle third of the right clavicle. No fracture of the scapula identified. No dislocation of the right humeral head relative to the right glenohumeral joint. Mild degenerative change in the right glenohumeral joint. IMPRESSION: Mildly displaced and comminuted fracture of the middle third of the right clavicle. No fracture of the scapula identified. Reviewed, dictated and finalized at location Q. IMPRESSION: Mildly displaced and comminuted fracture of the middle third of the right clavi tatyana. No fracture of the scapula identified.
[2025-06-12 07:23] VITALS: BP 124/57; PULSE 81; RESP 17; TEMP 37.1; O2SAT 90
--- OUTSIDE RECORDS SUMMARY | 2025-06-12 07:31 | XMS_ITS | Encounter Summary ---
Author Organization [facility] Address [facility] [place] [address] Care Team Providers Care Computer Aide Name Role Phone Noah Mccarty MD Primary Care Provider [phone] Khoa Bee MD Primary Care Provider Encounter Details Date Type Department Care Team (Latest Contact Info) Description 08/23/2018 Abstract [facility] , Armando Ramos MD Social History Tobacco Use Types Packs/Day Years Used Date Smoking Tobacco: Never Assessed Comments Unknown Sex and Gender Information Value Date Recorded Sex Assigned at Female 11/27/2024 2:38 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 - Physical Therapy [address] [place] [address] Mandeep Coates, [place] [address] documented as of this encounter Visit Diagnoses Not on filedocumented in this encounter Care Teams Computer Aide Relationship Specialty Start Date End Date Noah Mccarty MD [address] [place] [address] [place] [address] PCP - General INTERNAL MEDICINE 11/15/18 01/31/25 Khoa Bee MD [address] [place] [address] [place] [address] PCP - General INTERNAL MEDICINE 02/01/25 documented as of this encounter
--- OUTSIDE RECORDS SUMMARY | 2025-06-12 07:31 | XMS_ITS | Clinical Summary ---
Author Organization [facility] Address [address] [place] [address] Care Team Providers Care Sweet Goods Machine Operator Name Role Phone Noah Mccarty MD Primary Care Provider Enid Martin MD Unavailable [phone] Richard Rankin DPT Unavailable [phone] Zulay Ghotra DPT Unavailable [phone] Allergies Active Allergy Reactions Criticality Noted Date [...] 1 tablet/capsule (100 mg total) by mouth body service team member before breakfast Active QUEtiapine (SEROquel) 100 mg [...] ORAL)Indications:h ealth Take 1 capsule by mouth body service team member before breakfast Active fluorometholone (FML) 0.1 % [...] one health Take 4 capsules by mouth body service team member before breakfast Active solifenacin (VESIcare) 5 mg [...] (11/27/2021): Added automatically from request for surgery [id number] Abdominal bloating 11/07/2021 Diverticular disease of colon 11/07/2021 Flatulence 11/07/2021 Lactose intolerance 11/07/2021 Iron deficiency anemia 11/07/2021 Intestinal malabsorption 11/07/2021 Neuropathy of right ulnar nerve at wrist 021 Overview (10/03/2021): Added automatically from request for surgery [id number] Pelvic pain 06/14/2017 Pain in wrist 05/06/2017 History of artificial joint 05/20/2016 Osteoarthritis of hip 02/24/2016 Family history of CREST syndrome Immunizations Immunization Administration Dates Next Due Influenza, Trivalent, IM (MDV) 07/18/2016 Influenza, Trivalent, Preser vative Free, Intramuscular 07/25/2019,07/18/2018,07/23/2015 Influenza, Unspecified 07/11/2021 Surgical History Surgery Date Site/Laterality Comments GA TONSILLECTOMY PRIMARY/SEC ONDARY <AGE 12 10/18/1964 - 10/17/1965 HYSTERECTOMY 10/18/1993 - 10/17/1994 GASTRIC BYPASS 10/18/2003 - 10/17/2004 GA ARTHRP ACETBLR/PROX FEM P ROSTC AGRFT/ALGRFT 10/18/2015 [...] on file 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 Gender Identity Female 05/24/2018 1:36 PM CDT [...] as needed Medical Devices Implanted Type Area Airflight Attendants Supervisor Device Identifier Shelf Expiration Date Model / Serial / Lot [employer] Axium Slimtip 1mm 50cm 4 Electrode Lead Front Load Delivery 5mm [id number] - [id number] - [id number] Implanted:Qty: 1 on 08/31/2023 by Dennis Foster MD PhD at [facility] Lead N/A: Epidural Space [employer] 07/22/2024 [id number] 50A / [id number] / [employer] Axium Slimtip 1mm 50cm 4 Electrode Lead Front Load Delivery 5mm [id number] - [id number] - [id number] Implanted:Qty: 1 on 08/31/2023 by Dennis Foster MD PhD at [facility] Lead N/A: Epidural Space [employer] 11/05/2024 [id number] [id number] / [id number] / [employer] Axium Slimtip 1mm 50cm 4 Electrode Lead Front Load Delivery 5mm [id number] - [id number] - [id number] Implanted:Qty: 1 on 08/31/2023 by Dennis Foster MD PhD at [facility] Lead N/A: Epidural Space [employer] 03/10/2025 [id number] 50A / [id number] / Rtha-05/07/2005 Implanted:05/07/20 05 (Quantity not on file) Right: Hip [employer] [id number] Seprafilm 6x5in Barrier Adhesion Sterile Disposable Latex Free - [id number] Implanted:Qty: 1 on 10/22/2021 by Ira Marsh MD at [facility] Right: Wrist [facility] Justin [id number] 01/08/2024 [id number] / / [id number] [employer] [id number] Seprafilm 6x5in Barrier Adhesion Sterile Disposable Latex Free - [id number] Implanted:Qty: 1 on 12/09/2021 by Ira Marsh MD at [facility] Left: Wrist [facility] Justin [id number] 01/08/2024 [id number] / / [id number] 2 [employer] Axium Slimtip 1mm 50mm Front Load 4 Electrode 5mm Space Lead [id number] - [id number] - [id number] Implanted:Qty: 1 on 05/10/2023 by Dennis Foster MD PhD at [facility] [employer] [id number] 06/09/2024 [id number] 50A / [id number] / [employer] Axium Slimtip 1mm 50mm Front Load 4 Electrode 5mm Space Lead [id number] - [id number] - [id number] Implanted:Qty: 1 on 05/10/2023 by Dennis Foster MD PhD at [facility] [employer] [id number] 08/30/2024 [id number]- 50A / [id number] / [employer] Axium Slimtip 1mm 50mm Front Load 4 Electrode 5mm Space Lead [id number]/24/2 023 Implanted:05/10/20 by Dennis Foster MD PhD (Quantity not on file) N/A: Back [employer] [id number] 08/30/2024 [id number] [id number] / [id number] / [employer] Axium Slimtip 1mm 50mm Front Load 4 Electrode 5mm Space Lead [id number] - [id number] - [id number] Implanted:Qty: 1 on 08/06/2023 by Dennis Foster MD PhD at [facility] [employer] [id number] 07/07/2024 [id number] 50A / [id number] / [employer] Neurostimulator Proclaim Drg Ipg W Iphone Pt Controller [id number] - [id number] - [id number] Implanted:Qty: 1 on 09/02/2023 by Dennis Foster MD PhD at [facility] N/A: Epidural Space [employer] [id number] SYSXX / [id number] / Insurance [employer] [facility] MEDICARE COMMERCIAL GENERIC MEDICARE [employer] [facility] MEDICARE [facility] Advance Directives For more information, please contact: [phone] Documents on File Type Date Recorded Patient Track Grinder Expl anation ADVANCE DIRECTIVE 09/07/2023 12:37 AM MARIA T ING WILL ADVANCE DIRECTIVE 09/07/2023 12:37 AM [facility] * Full Code (Latest Code Status on File) Date Activated Date Inactivated Comments 10/22/2021 7:28 PM 10/23/2021 2:52 PM Care Teams Sweet Goods Machine Operator Relationship Specialty Start Date End Date Noah Mccarty MD [address] [facility] [address] [place] [address] PCP - General 04/26/17 [place] [address] [place] [address] Surgeon Orthopedic Surgery 06/16/18 Richard Rankin DPT [address] [place] [address] Physical Therapist Physical Therapy 12/20/22 Zulay Ghotra DPT [address] [facility] [address] [place] [address] Referring Physician Physical Therapy 03/09/24
--- OUTSIDE RECORDS SUMMARY | 2025-06-12 07:31 | XMS_ITS | Encounter Summary ---
Author Organization [facility] Address [address] [place] [address] Phone Care Team Providers Care Interior Horticulturist Name Role Phone Noah Mccarty MD Primary Care Provider Enid Martin MD Unavailable Richard Rankin DPT Unavailable [phone] Padmini Turner DPT Unavailable [phone] Lissett Hernandez DPT Unavailable [phone] Zulay Ghotra DPT Unavailable [phone] Encounter Details Date Type Department Care Team (Late st Contact Info) Description 12/29/[address] 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 Gender Identity Female 05/24/2018 1:36 PM CDT [...] on filedocumented in this encounter Care Teams Interior Horticulturist Relationship Specialty Start Date End Date Noah Mccarty MD [address] [facility] [place] [address] PCP - General 04/26/17 [place] [address] [place] [address] Surgeon Orthopedic Surgery 06/16/18 Richard Rankin, DPT [address] [place] [address] Physical Therapist Physical Therapy 12/20/22 Padmini Turner, DPT [address] [facility] [address] [place] [address] Physical Therapist Physical Therapy 11/18/23 03/08/24 Lissett Hernandez DPT [address] [facility] [address] [place] [address] Physical Therapist Physical Therapy 03/09/24 03/09/24 Zulay Ghotra, DPT [address] [facility] [address] [place] [address] Referring Physician Physical Therapy 03/09/24 documented as of this encounter
--- OUTSIDE RECORDS SUMMARY | 2025-06-12 07:31 | XMS_ITS | Encounter Summary ---
Author Organization [facility] Address [address] [place] [address] Care Team Providers Care Residential Mental Health Worker Name Role Phone Noah Mccarty MD Primary Care Provider Enid Martin MD Unavailable Richard Rankin DPT Unavailable [phone] Padmini Turner DPT Unavailable Lissett Hernandez DPT Unavailable [phone] Zulay Ghotra DPT Unavailable [phone] Encounter Details Date Type Department Care Team (Late st Contact Info) Description 05/10/2023 Telephone [facility] [address] [facility] Advanced Medicine [address] [place] [address] Dennis Foster MD PhD [address] [place] [address] Social History Tobacco Use Types Packs/Day Years [...] on file 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 Gender Identity Female 05/24/2018 1:36 PM [...] on filedocumented in this encounter Care Teams Residential Mental Health Worker Relationship Specialty Start Date End Date Noah Mccarty MD [address] [facility] [address] [place] [address] PCP - General 04/26/17 [place] [address] [place] [address] Surgeon Orthopedic Surgery 06/16/18 Richard Rankin DPT [address] [place] [address] Physical Therapist Physical Therapy 12/20/22 Padmini Turner, VAUGHNT [address] [facility] [address] [place], [place] [address] Physical Therapist Physical Therapy 11/18/23 03/08/24 Lissett Hernandez DPT [address] [facility] [address] [place], [place] [address] Physical Therapist Physical Therapy 03/09/24 03/09/24 Zulay Ghotra DPT [address] [place], [place] [address] Referring Physician Physical Therapy 03/09/24 documented as of this encounter
--- OUTSIDE RECORDS SUMMARY | 2025-06-12 07:31 | XMS_ITS | Patient Health Record ---
Author Organization [facility] Address [address] [place], [place] [address] Care Team Providers Care Injection Molding Machine Setter Name Role Phone DENISE ROMO Unavailable [phone] Noah Mccarty Unavailable Unavailable Reason For Referral No Information Medications Medication SIG (Take, Route, Frequency, Duration) Notes Start Date End Date Status Furosemide 20 MG Oral Tablet ORAL furosemide 20 MG Oral TabletOriginal Medicationfurosemide 20 MG Oral Tablet *Reorder from [employer] for eRx and Interaction Alerts* 9 Active estradiol 0.01 MG Vaginal Insert VAGINAL estradiol 0.01 MG Vaginal InsertOriginal Medicationestradiol 0.01 MG Vaginal Insert *Reorder from [employer] for eRx and Interaction Alerts* 9 Active 0.4 ML cyclosporine 0.5 MG/ML Ophthalmic Suspension [Restasis] 0.4 ML cyclosporine 0.5 MG/M L Ophthalmic Suspension [Restasis]Original Medication0.4 ML cyclosporine 0.5 MG/ML Ophthalmic Suspension [Restasis] *Reorder from [employer] for eRx and Interaction Alerts* 9 Active fluoxetine 40 MG Oral Capsule ORAL fluoxetine 40 MG Oral CapsuleOriginal Medicationfluoxetine 40 MG Oral Capsule *Reorder from [employer] for eRx and Interaction Alerts* 9 Active cobamamide 0.1 MG / vitamin B12 5 MG Sublingual Tablet cobamamide 0.1 MG / vitamin B12 5 MG Sublingual TabletOriginal Medicationcobamamide 0.1 MG / vitamin B12 5 MG Sublingual Tablet *Reorder from [facility] for eRx and Interaction Alerts* 9 Active colestipol hydrochloride 1000 MG Oral Tablet ORAL colestipol hydrochloride 100 0 MG Oral TabletOriginal Medicationcolestipol hydrochloride 1000 MG Oral Tablet *Reorder from [facility] for eRx and Interaction Alerts* Active amitriptyline hydrochloride 50 MG Oral Tablet ORAL amitriptyline hydrochloride 50 MG Oral TabletOriginal Medicationamitriptyline hydrochloride 50 MG Oral Tablet *Reorder from [facility] for eRx and Interaction Alerts* Active solifenacin succinate 5 MG Oral Tablet [Vesicare] ORAL solifenacin succinate 5 MG Oral Tablet [Vesicare]Original Medicationsolifenacin succinate 5 MG Oral Tablet [Vesicare] *Reorder from [facility] for eRx and Interaction Alerts* Active atorvastatin 10 MG Oral Tablet ORAL atorvastatin 10 MG Oral TabletOriginal Medicationatorvastatin 10 MG Oral Tablet *Reorder from [facility] for eRx and Interaction Alerts* Active acetaminophen 300 MG / codeine phosphate 30 MG Oral Tablet [Tylenol with Codeine] ORAL acetaminophen 300 MG / codeine phosphate 30 MG Oral Tablet [Tylenol with Codeine]Original Medicationacetaminophen 300 MG / codeine phosphate 30 MG Oral Tablet [Tylenol with Codeine] *Reorder from [facility] for e Active Lactobacillus acidophilus [id number] UNT Oral Capsule ORAL Lactobacillus acidophilus [id number] UNT Oral CapsuleOriginal MedicationLactobacillus acidophilus [id number] UNT Oral Capsule *Reorder from [facility] for eRx and Interaction Alerts* Active alprazolam 0.5 MG Oral Tablet [Xanax] ORAL alprazolam 0.5 MG Oral Table t [Xanax]Original Medicationalprazolam 0.5 MG Oral Tablet [Xanax] *Reorder from [facility] for eRx and Interaction Alerts* Active quetiapine 400 MG Oral Tablet ORAL quetiapine 400 MG Oral TabletOriginal Medicationquetiapine 400 MG Oral Tablet *Reorder from [facility] for eRx and Interaction Alerts* Active cholecalciferol 0.05 MG Oral Tablet ORAL cholecalciferol 0.05 MG Oral TabletOriginal Medicationcholecalciferol 0.05 MG Oral Tablet *Reorder from [facility] for eRx and Interaction Alerts* Active calcium citrate 950 MG / cholecalciferol 250 UNT Oral Tablet ORAL calcium citrate 950 MG / cholecalciferol 250 UNT Oral TabletOriginal Medicationcalcium citrate 950 MG / cholecalciferol 250 UNT Oral Tablet *Reorder from [facility] [employer] for eRx and Interaction Alerts* Active celecoxib 200 MG Oral Capsule [Celebrex] ORAL celecoxib 200 MG Oral Capsul e [Celebrex]Original Medicationcelecoxib 200 MG Oral Capsule [Celebrex] *Reorder from [facility] for eRx and Interaction Alerts* Active Plan Of Treatment No Information Insurance Providers Payer Name Payer Address Payer Phone Subscriber Number Group Number Insured Name Patient Relationship to Insured Coverage Start Date Coverage End Date [facility] [address] [place] [address] [id number] BHAVANI BILLS Spouse - patient is the spouse of the insured [facility] [address] [place] [address] [phone] [id number] JULIAN BILLS Self - patient is the insured
--- OUTSIDE RECORDS SUMMARY | 2025-06-12 07:32 | XMS_ITS | Clinical Summary ---
Author Organization [facility] Address [address] [place] [address] Care Team Providers Care Salvage Mechanic Name Role Phone Khoa Bee MD Primary [...] Type Department Care Team Description 04/17/2025 Telephone [facility] Physical [address] [phone] Gabby Escamilla MANAGER FLIGHT Called To Cancel Office Appt. 04/10/2025 8:45 AM CDT Office Visit [facility] Physical [address] [phone] Dennis Foster MD Meyer, Debra S, PTA Balance Problem 04/10/2025 Travel 04/06/2025 9:30 AM CDT Office Visit [facility] Physical [address] [address] Dennis Foster MD Mueller, Abbie T, MANAGER FLIGHT Balance Problem 04/06/2025 Travel 04/02/2025 9:30 AM CDT Office Visit [address] [address] Dennis Foster MD Kuelker, Allyson R, PT Balance Problem 04/02/2025 Travel 03/23/2025 9:30 AM CDT Office Visit [address] [address] Dennis Foster MD Mueller, Abbie T, MANAGER FLIGHT Balance Problem 03/23/2025 Travel 03/19/2025 9:30 AM CDT Office Visit [address] [address] Dennis Foster MD Kuelker, Allyson R, PT Balance Problem 03/19/2025 Travel 03/16/2025 9:30 AM CDT Office Visit [address] [address] Dennis Foster MD Mueller, Abbie T, MANAGER FLIGHT Balance Problem 03/16/2025 Travel 03/14/2025 11:00 AM CDT Office Visit [address] [address] Dennis Foster MD Kuelker, Allyson R, PT Balance Problem 03/14/2025 Travel from Last 3 Months Social History [...] from your doctor or pharmacy? Never 02/01/2025 [facility] Utilities Answer Date Recorded In the past 12 months has e electric, gas, oil, or water company threatened to shut off services in your [...] 02/01/2025 How often do you attend chur ch or shinto services? More than 4 times per year 02/01/2025 Do you belong to any clubs o r organizations such as scientologist groups, unions, fraternal or athletic groups, or [...] and heating? Not hard at all 02/01/2025 [facility] Occupat ional Health - Occupational Stress [...] any time in the past 12 m [facility], were you homeless or living in a prison (including now)? 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 [address] Health Maintenance Due Date Last Done Comments [...] and discharge planning Lifestyle No Galindo Quezada, religious leader Procedure Name Priority Date/Time Associated Diagnosis Comments [...] SCOTT GARCIA MD: ROSARIO KIRBY DO ACCT: [id number] : 1955 PT TYPE: REG CLI SEX: F [facility]D [facility] ST[facility]Y DATE REPORT # PROCEDURE CODE PROCEDURE 05/24/13 [id number] DXMAMDIGRT MG DIAGNOSTIC MAMMO DIGITAL RT EXTORDERID [id number] ACCESSION NUMBER [id number] CHART DOCUMENT IMPRESSION: MULTIPLE TINY CLUSTERS OF [...] M.D. 05/24/2013 16:30 ROBERT PANTOJA M.D. P #[id number] P/OPAL CC: ROSARIO KIRBY D.O. Radiology image is available. Click on Image Link above. Procedure Note Armando Fox MD - 08/11/2018 SCOTT GARCIA ORDERING MD: ROSARIO KIRBY DO ACCT: [id number] : 1955 PT TYPE: REG CLI SEX: F ORD SITE: [facility] OUTPT IMAGING STUDY DATE REPORT # PROCEDURE CODE PROCEDURE 05/24/13 [id number] DXMAMDIGRT MG DIAGNOSTIC MAMMO DIGITAL RT EXTORDERID [id number] ACCESSION NUMBER [id number] CHART DOCUMENT IMPRESSION: MULTIPLE TINY CLUSTERS OF [...] M.D. 05/24/2013 16:30 ROBERT PANTOJA M.D. P #[id number] P/MA CC: ROSARIO KIRBY D.O. Radiology image is available. Click on Image Link above. Rosario Kirby DO MAMMO Final Result from Last 3 Months or Most Recently Relevant to Health Maintenance Insurance MEDICARE [facility] [employer] Advance Directives * POLST (Latest Code Status [...] None - No Artificial Nutrition Care Teams Salvage Mechanic Relationship Specialty Start Date End Date Khoa Bee MD [address] [place] [address] Dr Murcia [address] [place] [phone] PCP - General INTERNAL MEDICINE 02/01/25
--- OUTSIDE RECORDS SUMMARY | 2025-06-12 07:32 | XMS_ITS | Clinical Summary ---
Author Organization [facility] Administrative Offices Address [address] [place] [address] Care Team Providers Care Soap Boiler Name Role Phone Marcos Campbell MD Primary [...] PAIN 180 Tablet 2 04/27/20 25 Active oxyCODONE (ROXICODONE) 5 mg tabletIndication s:Acute post-operative pain Take 1 Tablet (5 mg) by mouth every 6 hours as needed for Pain. Max Daily Amount: 20 mg 28 Tablet 06/08/2025 4:58 PM CDT 06/08/20 25 025 Active cephALEXin (KEFLEX) 500 mg capsule Take 1 Capsule (500 mg) by mouth 3 times daily for 7 days. 21 Capsule 06/08/2025 4:58 PM CDT 06/08/20 025 Active Active Problems Problem Noted Date Diagnosed [...] (04/27/2024): Added automatically from request for surgery [id number] Diverticular disease of colon 11/07/2021 Intestinal malabsorption 11/07/2021 Iron deficiency anemia 11/07/2021 Lactose intolerance 11/07/2021 Neuropathy of right ulnar nerve at wrist 021 Overview (04/27/2024): Added automatically from request for surgery [id number] Pain in wrist 05/06/2017 History of artificial joint 05/20/2016 Osteoarthritis of hip 02/24/2016 Encounters Date Type Department Care Team Description 06/08/2025 12:51 PM CDT - 06/08/2025 3:19 PM CDT Surgery [facility] Operating Room [address] [address] [place] [address] Dennis Foster MD DRG SCS X3 LEADS & IPG REPLACEMENT [place] 06/08/2025 12:38 PM CDT Anesthesia Event [facility] Operating Room [address] [address] [place] [address] Gilberto Cuevas MD Shaffer, Jason P, CONE EXAMINER 06/08/2025 11:15 AM CDT - 06/08/2025 5:18 PM CDT Hospital Encounter [facility] Pre Post [address] [address] [place] [address] Dennis Foster MD Complex regional pain syndrome type 2 of right lower extremity Discharge Disposition: Home or Self Care 06/08/2025 Travel 05/22/2025 7:45 AM CDT Ancillary Procedure [facility] Operating Room [address] [facility] [address] [place] [address] Dennis Foster MD 05/22/2025 7:34 AM CDT - 05/22/2025 7:46 AM CDT Surgery [facility] [facility] [address] [place] [address] Dennis Foster MD B/L ISCHIAL TUBEROSITY INJ (NO BT) HIP JOINT INTRAARTICULAR INJECTION 05/22/2025 7:17 AM CDT - 05/22/2025 7:59 AM CDT Hospital Encounter [facility] [facility] [place] [address] Dennis Foster MD Bursitis of other bursa of both hips Discharge Disposition: Home or Self Care 05/22/2025 External Device Data STL ABSTRACTION Provider, Abstract 05/22/2025 Travel 05/15/2025 7:30 AM CDT - 05/15/2025 7:42 AM CDT Surgery [facility] [address] [facility] [address] [place] [address] Dennis Foster MD Bilateral GTB INJECTION 05/15/2025 7:05 AM CDT Ancillary Procedure [facility] [address] [facility] [address] [place] [address] Dennis Foster MD 05/15/2025 6:44 AM CDT - 05/15/2025 7:33 AM CDT Hospital Encounter [facility] Pre Post [address] [facility] [address] [place] [address] Dennis Foster MD Bursitis of both hips, unspecified bursa Discharge Disposition: Home or Self Care 05/15/2025 Travel 05/09/2025 Travel 05/08/2025 Orders Only [facility] [address] [place] [address] Dennis Foster MD 05/08/2025 Telephone [facility] [address] [place] [address] Dennis Foster MD Scheduling Spinal Cord Stimulator 05/03/2025 1:00 PM CDT Office Visit [facility] [address] [place] [address] Jenni Tobar, DITCHER Ischial bursitis, unspecified laterality (Primary Dx); Complex regional pain syndrome type 2 of right lower extremity; Chronic use of opiate drug for therapeutic purpose; Falls 05/03/2025 Orders Only [facility] [address] [place] [address] Dennis Foster MD 05/02/2025 External Device Data STL ABSTRACTION Provider, Abstract 05/02/2025 Travel 05/01/2025 External Device Data STL ABSTRACTION Provider, Abstract 04/26/2025 Refill [facility] [address] [place] [address] Dennis Foster MD Chronic use of opiate drug for therapeutic purpose 04/10/2025 External Device Data STL ABSTRACTION Provider, Abstract 04/10/2025 External Device Data STL ABSTRACTION Provider, Abstract 04/06/2025 Orders Only [facility] [address] [place] [address] Dennis Foster MD 04/03/2025 11:30 AM CDT Office Visit [facility] [address] [place] [address] Jenni Tobar NP Complex regional pain syndrome [...] who hurts you emotionally and/or physically? No 06/08/2025 Comments No Sex and Gender Information Value Date Recorded Sex Assigned at Female 04/30/2024 7:27 PM CDT Legal Sex Female 8:35 AM BUSINESS AGENT Gender Identity Female 04/30/2024 7:27 PM CDT Sexual Orientation Not on file Travel History Travel Start Travel End [place] 05/29/2025 05/31/2025 Last Filed Vital Signs Vital Sign Reading Time Taken Comments Blood Pressure 152/74 06/08/2025 5:00 PM CDT Pulse 70 06/08/2025 5:00 PM CDT Temperature 36 C (96.8 F) 06/08/2025 5:00 PM CDT Respiratory Rate 14 06/08/2025 4:37 PM CDT Oxygen Saturation 99% 06/08/2025 5:00 PM CDT Inhaled Oxygen Concentration - - Weight 91.5 kg (201 lb 12.8 oz) 025 11:43 AM CDT Height 157.5 cm (5' 2) 05/09/2025 5:07 PM CDT Body Mass Index 36.91 05/09/2025 5:07 PM CDT Plan of Treatment Health Maintenance Due Date Last Done Comments Pre-Diabetes and Diabetes Screening 1955 DTAP/TDAP/TD VACCINES (1 - Tdap) 1976 FIT-DNA Q 3 years 2002 FIT/FOBT Q 1 year 2002 Flex Sig/CT Colonography Q 5 years 2002 ZOSTER VACCINE (2 of 3) 06/13/2012 04/18/2012 BREAST CANCER SCREENING 05/24/2014 05/24/20 13, 05/24/2013, 05/08/2013 OSTEOPOROSIS SCREENING 2022 PNEUMOCOCCAL VACCINE 50+ YEA RS (2 of 2 - PCV) 02/11/2023 02/11/2022, 08/28/2020 COVID-19 Vaccine (4 - 2023-2 5 season) 2024 09/12/2021, 03/19/2021, 02/11/2021 INFLUENZA VACCINE (#1) 2025 2, 07/25/2019, 07/18/2018, Additional history exists RSV VACCINE (60+ or ) (1 - 1-dose 75+ series) 2032 COLORECTAL SCREENING 04/24/2035 04/24/2025 Colorectal Cancer Screening 04/24/2035 Medical Devices Implanted Type Area Criminal Attorney Device Identifier Shelf Expiration Date Model / Serial / Lot Lead Vectris 1x8 60cm [facility] [id number] - [id number] Implanted:Qty: 1 on 03/01/2025 by Dennis Foster MD at [facility] Lead N/A: Back [employer]- NEUROLOGIC TECH 01/08/2029 [id number] / / [id number] Lead Vectris 1x8 60cm [facility] [id number] - [id number] Implanted:Qty: 1 on 03/01/2025 by Dennis Foster MD at [facility] Lead N/A: Back [employer]- NEUROLOGIC TECH 01/26/2029 [id number] / / [id number] Lead Axium Slimtip 50cm [id number] - [id number] Implanted:Qty: 1 on 06/08/2025 by Dennis Foster MD at [facility] Lead N/A: Spine Lumbar [employer] 02/28/2027 [id number] 50A / / [id number] Lead Axium Slimtip 50cm [id number] - [id number] Implanted:Qty: 1 on 06/08/2025 by Dennis Foster MD at [facility] Lead N/A: Spine Lumbar [employer] [employer] 02/28/2027 [id number] 50A / / [id number] Neuro Stimulator Neuro Stimulator [employer]- SPINAL [employer] 3664 / / Description:[email or web address] [email or web address]-sup [email or web address]-apd.html Generator Ext Pulse 2 [place] Neurostim Trial s 7032 - [id number] Implanted:Qty: 1 on 06/08/2025 by Dennis Foster MD at [facility] Neuro N/A: Spine Lumbar [employer] 05/26/2026 [id number] / / [id number] Neurostimulator Proclaim Ipg Pat 3664ans - Old - [id number] Implanted:Qty: 1 on 06/08/2025 by Dennis Foster MD at [facility] Neuro N/A: Spine Lumbar [employer] 02/27/2027 3664ANS- OLD / / [id number] [place] [employer] 04699 - [id number] Implanted:Qty: 1 on 03/01/2025 by Dennis Foster MD at [facility] Other N/A: Back [employer]- NEUROLOGIC TECH 12/28/2028 [id number] / / [id number] Total Hip Replacement Right: Hip Procedures Procedure Name Priority Date/Time Associated Diagnosis Comments XR FLUORO LESS THAN 1 HOUR Routine 06/08/2025 3:28 PM CDT XR FLUORO LESS THAN 1 HOUR Routine 05/22/2025 7:49 AM CDT CHG FLUOROSCOPIC GUIDANCE NEEDLE PLACEMENT ADD ON 05/22/2025 7:34 AM CDT Bursitis of other bursa of both hips [place] ARTHROCENTESIS ASPIR&/INJ MAJOR JT/BURSA W/O US 05/22/2025 7:34 AM CDT Bursitis of other bursa of both hips CHG FLUOROSCOPIC GUIDANCE NEEDLE PLACEMENT ADD ON 05/15/2025 7:30 AM CDT Bursitis of both hips, unspecified bursa [place] ARTHROCENTESIS ASPIR&/INJ MAJOR JT/BURSA W/O US 05/15/2025 7:30 AM CDT Bursitis of both hips, unspecified bursa XR FLUORO LESS THAN 1 HOUR Routine 05/15/2025 7:23 AM CDT from Last 3 Months Results * XR FLUORO LESS THAN 1 HOUR (06/08/2025 3:28 PM CDT) Only the most recent of3 resultswithin the time period is included. Narrative 06/08/2025 3:29 PM CDT Order information only. Exam was auto-finalized. us Loc Isaiah Foster MD DIAGNOSTIC IMAGING ORDERABLES Final Result from Last 3 Months Insurance MEDICARE PART A AND B FOR LIFE [employer] Advance Directives For more information, please contact: [phone] * Full Code (Latest Code Status on File) Date Activated Date Inactivated Comments 06/08/2025 11:58 AM 06/08/2025 7:18 PM * Full Code Date Activated Date Inactivated Comments 06/08/2025 11:26 AM 06/08/2025 11:57 AM Care Teams Soap Boiler Relationship Specialty Start Date End Date Marcos Campbell MD [address] [place] [address] PCP - General Internal Medicine 04/03/25
--- OUTSIDE RECORDS SUMMARY | 2025-06-12 07:32 | XMS_ITS | Patient Health Record ---
Author Organization [employer] Address [address] [facility] 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 Problem Flatulence, eructation and gas pain (302275650) Bloating (R14.0) Active confirmed She has significant [...] Problem History of polyp of colon (situation) (883768784) History of colon polyps (Z86.010) Active confirmed Her last colonoscopy in October 2019 revealed hemorrhoids and a 5 mm polyp. She was advised to follow-up in 5 years. Problem 86701630 Iron deficiency anemia (D50.9) Active confirmed She underwent upper endoscopy and colonoscopy in November of this year due to iron deficiency anemia. It was suspected her anemia was related to malabsorption of iron from her gastric bypass surgery and the small gastric erosion. She received an iron infusion and has been monitoring her blood counts every 3 months. Problem 313492966 Lactose intolerance (E73.9) Active confirmed She follows a dairy free diet. Problem 727735016 Abdominal bloating (R14.0) Active confirmed She complains today of abdominal bloating and gas she associates with SIBO. She was tested and treated several years ago for similar symptoms with Neomycin. Suspect this is the cause for her recent bloating. Unlikely considerations would be food intolerance, partial bowel obstruction, IBD, celiac disease, peptic ulcer, gastritis, or other. Problem Rectal pain (71354698) Rectal pain (K62.89) Active confirmed She has had tailbone pain for the last several months and has been sitting on a donut. As a result, this has caused increased pressure in her rectum. Her rectal exam today was unrevealing. 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 She does well on this medication and denies alarm features. She typically has a bowel movement every other day. Problem 365399393 Colonic diverticular disease (K57.30) Active confirmed Problem Acid reflux (779721875) Acid reflux (K21.9) Active confirmed She has occasional acid reflux, which she is typically able to control with Gaviscon as needed. Problem History of bypass of stomach (369687067) H/O gastric bypass (Z98.84) Active confirmed She [...] Coverage End Date Medicare E2 [address] [address] [place] [address] [id number] Scott Garcia Self - patient is the insured [facility] - DO NOT USE OF [address] [place] [address] [id number] Arnie Garcia Spouse - patient is the spouse of the insured Medical (General) History Medical History History ICD Code GERD Hemorrhoids SIBO Lactose Intolerance Diverticulosis Colon Polyps Anemia Depression/Bipolar Osteo Arthritis Insomnia Reynaud's Syndrome Neuropathy Fibromyalgia Sleep Apnea/CPAP Surgical History Surgery Date(Month/Year) EGD 11/2019 Colonoscopy 11/2019 Gastric Bypass 2003 Cholecystectomy Total Right Hip Replacement 2016 Bilateral RPK Surgery 2007 Tummy Tuck 2007 Abdominoplasty 2006 Hysterectomy 1995 Bilateral Tubal Ligation 1982 Tonsillectomy and Adeniodectomy Bilateral Carpal Tunnel Release Adenoidectomy Bilateral Pistiform Extraction
--- OUTSIDE RECORDS SUMMARY | 2025-06-12 07:32 | XMS_ITS | Patient Health Record ---
Author Organization [facility] Address [address], [place] [address] Care Team Providers Care Culturist Name Role Phone Noah Mccarty Primary Care Provider Courtney Schmitt MD, [facility] [phone] ALLERGIES Allergen (clinical drug ingredient) Drug/Non Drug [...] primary osteoarthritis, right hip (M16.11) Active confirmed Problem Plantar fascial fibromatosis (M72.2) 01/01/20 22 Active confirmed 02667241 Problem Pain in right ankle and joints of right foot (M25.571) 04/16/20 18 Active confirmed 971614164 Problem Trigger thumb, right thumb (M65.311) Active confirmed 473610440557085 Problem Trigger finger, right index finger (M65.321) Active confirmed 618320241 Problem Trigger finger, left index finger (M65.322) Active confirmed 408524210 Problem Trigger finger, left middle finger (M65.332) Active confirmed 954478752 Problem Trigger finger, right ring finger (M65.341) 04/03/20 21 Active confirmed 469897443 Problem Trigger finger, right little finger (M65.351) 04/03/20 21 Active confirmed 814716796 Problem Trigger finger, left little finger (M65.352) Active confirmed 896937188 Problem Cramp and spasm (R25.2) 04/18/20 21 Active confirmed 80684998 Problem Other sprain of right hip, initial encounter (S73.191A) Active confirmed sprain of right hip (7383123171174435 4) Problem Neck pain (M54.2) 04/03/20 21 Active confirmed 09792811 Problem Numbness (R20.0) Active confirmed 18911 006 Problem Primary osteoarthritis of both first carpometacarpal joints (M18.0) Active confirmed 149793993 Problem Trigger little finger of right hand (M65.351) Active confirmed 105134583 Problem Hand weakness (R29.898) 04/18/20 21 Active confirmed 900371562 PLAN OF TREATMENT No Information Insurance Providers Payer Name Payer Address Payer Phone Subscriber Number Group Number Insured Name Patient Relationship to Insured Coverage Start Date Coverage End Date [facility] Claims [address] [place] [address] [id number] Arnie Garcia Spouse - patient is the spouse of the insured [facility] [address] [place] [address] [id number] Arnie Garcia Spouse - patient is the [...]
--- NOTE | 2025-06-12 07:45 | ED.FALL ---
HPI - Fall General Chief Complaint: Fall Stated Complaint: fall Time Seen by Provider: 06/12/25 07:25 History of Present Illness HPI Narrative: This is a 69-year-old female with history of hyperlipidemia chronic pain status post nerve stimulator who presents to the ED for a fall. Patient states that she has a chair lift for stairs and when she was trying to use it this morning, she missed the step and fell down approximately 9 steps. She did hit her head. Denies loss conscious. She has a Life Alert that she was able to press. Reports right shoulder pain, headache, neck pain, low back pain. She is not on blood thinners. Related Data Home Medications ?Medication ?Instructions ?Recorded ?Confirmed ?Last Taken ?Type Componmd Nerve Relief Lotion topical 03/22/25 06/11/25 Unknown History acetaminophen 300 mg-codeine 60 mg 1 tablet PO Q4H PRN pain 03/22/25 06/11/25 05/27/25 History tablet alprazolam 0.5 mg tablet 0.5 mg PO TID PRN anxiety 03/22/25 06/11/25 05/27/25 History amitriptyline 100 mg tablet 200 mg PO QHS 03/22/25 06/11/25 Unknown History azelastine 137 mcg (0.1 %) nasal 137 mcg intranasal Q12H PRN 03/22/25 06/11/25 Unknown History spray allergey symptoms Held on 05/28/25. Instructions: Resume on 06/18/25. Hold until instructed by Thiago to resume colestipol 1 gram tablet 1 g PO BID 03/22/25 06/11/25 Unknown History cyclobenzaprine 5 mg tablet 5 mg PO TID PRN muscle spasm 03/22/25 06/11/25 Unknown History cyclosporine 0.05 % eye drops in a 1 drp EACH EYE Q12H 03/22/25 06/11/25 Unknown History dropperette epinastine 0.05 % eye drops 1 drp EACH EYE Q12H 03/22/25 06/11/25 Unknown History fluoxetine 40 mg capsule 40 mg PO DAILY 03/22/25 06/11/25 05/28/25 History furosemide 20 mg tablet 60 mg PO DAILY 03/22/25 06/11/25 Unknown History meloxicam 15 mg tablet 15 mg PO DAILY 06/03/1106/11/25 05/21/25 History potassium chloride 20 meq BYMOUTH HS 03/22/25 06/11/25 Unknown History pregabalin 165 mg tablet, extended 165 mg PO TID 03/22/25 06/11/25 05/28/25 History release 24 hr (Lyrica CR) solifenacin 10 mg tablet (Vesicare) 10 mg PO HS 03/22/25 06/11/25 Unknown History spironolactone 25 mg tablet 25 mg PO DAILY 03/22/25 06/11/25 Unknown History valacyclovir 1 gram tablet 1,000 mg PO DAILY PRN cold sores 03/22/25 06/11/25 Unknown History zolpidem 10 mg tablet 10 mg PO QHS PRN sleep 03/22/25 06/11/25 Unknown History tizanidine 4 mg tablet 4 mg PO DAILY PRN muscle spasticity 04/02/25 06/11/25 Unknown History ropinirole 1 mg tablet 3 mg PO HS 06/01/25 06/11/25 Unknown History Allergies Allergy/AdvReac Type Severity Reaction Status Date / Time No Known Allergies Allergy Verified 06/12/25 07:33 Review of Systems Review of Systems: Gen.: Denies fevers or chills Eyes: Denies eye pain or visual change ENT: Denies congestion Respiratory: Denies shortness of breath or cough CV: Denies chest pain or palpitations GI: Denies abdominal pain nausea, emesis or diarrhea denies burning, urgency, frequency or hematuria Musculoskeletal: As per HPI Neuro: Denies numbness, tingling, weakness or focal weakness Skin: Denies rash Except as documented, all other systems reviewed and negative [facility] Past Medical History Medical History Cervicalgia BMI 36.0-36.9,adult Headaches due 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 injury Follow up Pedal edema Vitamin D deficiency Fall Hx of colonic polyps Colon cancer screening Breast cancer screening CRPS (complex regional pain syndrome) Peripheral neuropathy Anxiety and depression Insomnia BMI 30.0-30.9,adult 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 Hyperlipidemia Encounter to establish care Surgical History Surgical History Hx of nasal septoplasty May 2025 H/O insertion of nerve stimulator Hx of gastric bypass Social History Social History Smoking status: Never smoker Second hand tobacco smoke exposure: No Alcohol intake: current Drinks per week: 1 Alcohol use details: monthly Substance use: current Substance use type: painkillers Living arrangements: with family Occupation/Education: retired Gender identity (if verbalized by the patient): Female Spiritual care concerns: No Exam Narrative: APPEARANCE: Well appearing, no apparent distress, well-nourished. HEENT: normocephalic. 2 cm laceration to the vertex of the scalp. TMs clear bilaterally. Oral mucosa moist. No tenderness over bilateral zygomatic arch. Full range of motion of jaw without pain. EYES: PERRL NECK: Supple. C-collar in place. RESPIRATORY: No respiratory distress. Clear to auscultation bilaterally CARDIOVASCULAR: Regular rate and rhythm without murmurs rubs or gallops. ABDOMINAL: Soft, nontender, nondistended, no rebound or guarding MUSCULOSKELETAl: Moves all extremities. Tenderness to palpation to the superior portion of the right scapula, minimal tenderness over the right clavicle, no deformities. Neurovascularly intact distally. Back: Tenderness palpation to the midline lower thoracic/upper lumbar, without step-offs or deformities. Pelvis: Stable, nontender NEURO: Awake and alert ?3. Follows commands. Speech normal. No focal deficits. SKIN:: Warm, dry. Normal Color Course Vital Signs Vital signs: Vital Signs Temperature 98.8 F 06/12/25 07:23 Pulse Rate 81 06/12/25 07:23 Respiratory Rate 17 06/12/25 07:23 Blood Pressure 124/57 L 06/12/25 07:23 Pulse Oximetry 90 06/12/25 07:23 Oxygen Delivery Room Air 06/12/25 07:23 Temperature 98.8 F 06/12/25 07:23 Pulse Rate 89 06/12/25 11:15 Respiratory Rate 20 06/12/25 11:15 Blood Pressure 124/61 06/12/25 11:15 Pulse Oximetry 99 06/12/25 11:15 Oxygen Delivery Room Air 06/12/25 07:23 Procedures Laceration Laceration 1: Date: 06/12/25 Time: 10:47 Site: scalp Size (cm): 2 Depth: simple, single layer Local Anesthetic: none Pre-repair: irrigated ====== Skin Level ====== Skin layer closed with: echo Number of sutures: 2 ====== Subcutaneous Layer ====== ====== Muscle Layer ====== ====== Tendon Layer ====== MDM - Fall MDM Narrative Medical decision making narrative: 69-year-old female who presented to the ED for a mechanical fall after she missed her chair left. She had a laceration and hematoma to her scalp. She was in a C-collar. She had tenderness to the lower thoracic/upper lumbar midline spine with no step-offs or deformities. She did have tenderness over the lower right scapula into the right clavicle without any crepitus or deformities. CT head showed no acute process. CT C-spine showed no acute process. Was able to clear the patient's C-spine. CT T/L spine did reveal small compression fractures to T8 and T10. X-ray right clavicle did reveal a midshaft fracture with minimal displacement. X-ray right scapula showed no fractures. [place] placed, patient tolerated procedure well. She was placed in a sling. She was advised follow-up with orthopedic surgery and Neurosurgery for her CT findings. Patient was able to ambulate without significant assistance. Patient advised follow-up with her PCP regarding any other issues. Patient was agreeable to this plan. Given strict return precautions. Differential Diagnosis Differential diagnosis: Likely other (Contusion, hematoma, subdural hematoma, subarachnoid hemorrhage, clavicle fracture, scapular fracture, vertebral fracture) Medical Records Attestation: I reviewed the patient's medical records. Lab Data Attestation: I reviewed the patient's lab results. 06/12/25 09:10 06/12/25 09:10 Labs: Lab Results 06/12/25 Range/Units 09:10 WBC 10.0 (4.5-10.0) K/mm3 RBC 3.81 L (4.2-5.4) M/mm3 Hgb 11.3 L (12.0-15.0) g/dL Hct 37.2 (37.0-47.0) % MCV 97.6 (80-100) fl MCH 29.7 (26-34) pg MCHC 30.4 L (32-36) g/dl RDW 13.5 (11.5-14.5) % Plt Count 189 (150-375) k/mm3 MPV 9.5 (7.4-10.4) fl Immature Gran % (Auto) 0.7 H (0-0.5) % Neut % (Auto) 79.8 H (45.5-73.1) % Lymph % (Auto) 13.0 L (18.3-44.2) % [place] % (Auto) 4.4 (2.6-8.5) % Eos % (Auto) 1.8 (0-4.4) % Baso % (Auto) 0.3 (0.2-1.2) % Lymph # (Auto) 1.29 (0.9-3.2) K/mm3 [place] # (Auto) 0.4 (0.1-0.6) K/mm3 Eos # (Auto) 0.2 (0-0.3) K/mm3 Baso # (Auto) 0.0 (0.0-0.1) K/mm3 Abs Immat Gran (auto) 0.07 H (0.00-0.031) K/mm3 Absolute Neuts (auto) 7.9 H (1.3-6.7) K/mm3 Absolute Nucleated RBC 0.000 (0.0-0.012) K/mm3 Nucleated RBC % 0.0 (0.0-0.2) % Sodium 140 (137-145) mmol/L Potassium 3.4 (3.4-5.0) mmol/L Chloride 109 H (98-107) mmol/L Carbon Dioxide 27 (22-30) mmol/L Anion Gap 4 (4-12) mmol/L BUN 17 (7-17) mg/dL Creatinine 0.68 L (0.7-1.0) mg/dL Estim Creat Clear Calc 73 ml/min Estimated GFR > 60 (59 - ) Glucose 102 (65-110) mg/dL Calcium 8.2 L (8.4-10.2) mg/dL Total Bilirubin 0.4 (0.2-1.3) mg/dL AST 34 (14-36) U/L ALT 29 (6-35) U/L Alkaline Phosphatase 86 (38-126) U/L Total Protein 5.5 L (6.3-8.2) g/dL Albumin 3.2 L (3.5-5.1) g/dL Imaging Data Radiologist's impression: Impressions Head CT 06/12/25 08:21 IMPRESSION: 1. No acute intracranial abnormality. Cervical Spine CT 06/12/25 08:28 IMPRESSION: 1. No acute abnormality of the cervical spine. Thoracic/Lumbar Spine CT 06/12/25 08:32 IMPRESSION: 1. Mild compression fractures of T8 and T11, possibly acute/subacute. Recommend correlation with MRI. Scapula X-Ray 06/12/25 10:45 IMPRESSION: Mildly displaced and comminuted fracture of the middle third of the right clavicle. No fracture of the scapula identified. Shoulder X-Ray 06/12/25 10:48 IMPRESSION: Mildly displaced and comminuted fracture of the middle third of the right clavicle. No fracture of the scapula identified. Discharge Plan Discharge Clinical Impression: Compression fracture, Hematoma Fall Qualifiers: Encounter type: initial encounter Qualified Code(s): W19.XXXA - Unspecified fall, initial encounter Clavicle fracture Qualifiers: Encounter type: initial encounter Clavicle location: shaft Fracture type: closed Fracture alignment: nondisplaced Laterality: right Qualified Code(s): S42.024A - Nondisplaced fracture of shaft of right clavicle, initial encounter for closed fracture Laceration of scalp Qualifiers: Encounter type: initial encounter Qualified Code(s): S01.01XA - Laceration without foreign body of scalp, initial encounter Patient Disposition: Home Condition: Stable Instructions: Antibiotic Form, Clavicle Fracture (ED), Vertebral Compression Fracture (ED), Head Injury (ED), Contusion in Adults (ED) Additional Instructions: Take Tylenol and ibuprofen for the pain. Follow-up with Dr. Pal, orthopedic surgery, for further evaluation of her clavicle fracture. Follow-up with Dr. Coe, neurosurgery/spinal surgery, for further evaluation of the compression fractures. Continue to follow-up with the PCP. Return to the ED for any new worsening symptoms. Patient Language: Austrian Prescriptions: No Action alprazolam 0.5 mg tablet 0.5 mg PO TID PRN (Reason: anxiety) amitriptyline 100 mg tablet 200 mg PO QHS Patient Comments: TAKES 150 MG AT HS azelastine 137 mcg (0.1 %) spray,non-aerosol 137 mcg intranasal Q12H PRN (Reason: allergey symptoms) Rx Instructions: administer into each nostril colestipol 1 gram tablet 1 g PO BID Componmd Nerve Relief Lotion topical Patient Comments: not taking cyclobenzaprine 5 mg tablet 5 mg PO TID PRN (Reason: muscle spasm) cyclosporine 0.05 % dropperette 1 drp EACH EYE Q12H epinastine 0.05 % drops 1 drp EACH EYE Q12H fluoxetine 40 mg capsule 40 mg PO DAILY furosemide 20 mg tablet 60 mg PO DAILY pregabalin [Lyrica CR] 165 mg tablet extended release 24 hr 165 mg PO TID Rx Instructions: must administer with a meal/food meloxicam 15 mg tablet 15 mg PO DAILY potassium chloride 20 mEq tablet 20 meq BYMOUTH HS Patient Comments: TAKES 40 MEQ AT HS rosuvastatin 10 mg tablet 10 mg PO DAILY Qty: 90 1RF spironolactone 25 mg tablet 25 mg PO DAILY acetaminophen-codeine 300-60 mg tablet 1 tablet PO Q4H PRN (Reason: pain) Patient Comments: Up to 5 daily valacyclovir 1 gram tablet 1,000 mg PO DAILY PRN (Reason: cold sores) solifenacin [Vesicare] 10 mg tablet 10 mg PO HS zolpidem 10 mg tablet 10 mg PO QHS PRN (Reason: sleep) ropinirole 1 mg tablet 3 mg PO HS Rybelsus 3 mg tablet 3 mg PO DAILY Qty: 30 2RF tizanidine 4 mg tablet 4 mg PO DAILY PRN (Reason: muscle spasticity) cefuroxime axetil 250 mg tablet 250 mg PO BID Qty: 14 0RF prednisone 10 mg tablet 10 mg PO QAM Qty: 7 0RF nitrofurantoin monohyd/m-cryst [Macrobid] 100 mg capsule 100 mg PO Q12H Qty: 50 0RF Patient Comments: TAKES PRN Rx Instructions: must administer with a meal/food budesonide 0.25 mg/2 mL suspension for nebulization 0.25 mg irrigation BID Qty: 60 3RF Rx Instructions: 2ml in each irrigation bottle topiramate 25 mg tablet 25 mg PO BID Qty: 60 0RF azithromycin [Zithromax Z-Mc] 250 mg tablet See Rx Instructions PO .COMPLEX Qty: 6 0RF Rx Instructions: For 250 mg dose pack: take 500 mg today (day 1), then 250 mg for 4 days (days 2-5) PO prednisone 20 mg tablet 40 mg PO DAILY Qty: 10 0RF albuterol sulfate [Ventolin HFA] 90 mcg/actuation HFA aerosol inhaler 1 inh inhalation Q4H PRN (Reason: shortness of breath or wheezing) Qty: 8.5 0RF Follow-up/Referrals: Marcos Campbell MD [Primary Care Provider, Internal Medicine] Aissatou Coe MD [Physician, Neurosurgery] Kole Pal MD [Physician, Orthopedics]
[2025-06-12 08:55] VITALS: BP 106/44; PULSE 79; RESP 18; O2SAT 95
[2025-06-12 09:15] LABS: Hematocrit 37.2 % (37.0-47.0); Hemoglobin 11.3 g/dL (12.0-15.0); Immature Granulocyte Percent A 0.7 % (0-0.5); Lymphocytes Absolute Auto 1.29 K/mm3 (0.9-3.2); Mean Corpuscular HGB Conc 30.4 g/dl (32-36); Mean Corpuscular Hemoglobin 29.7 pg (26-34); Mean Corpuscular Volume 97.6 fl (80-100); Nucleated Red Blood Cells Absolute Auto 0.000 K/mm3 (0.0-0.012); Nucleated Red Blood Cells Perc 0.0 % (0.0-0.2); Platelet Count Result 189 k/mm3 (150-375); Red Blood Count 3.81 M/mm3 (4.2-5.4); White Blood Count 10.0 K/mm3 (4.5-10.0)
[2025-06-12 09:40] LABS: Alanine Aminotransferase 29 U/L (6-35); Albumin Level 3.2 g/dL (3.5-5.1); Alkaline Phosphatase 86 U/L (38-126); Anion Gap 4 mmol/L (4-12); Aspartate Amino Transferase 34 U/L (14-36); Bilirubin,Total 0.4 mg/dL (0.2-1.3); Blood Urea Nitrogen 17 mg/dL (7-17); Calcium 8.2 mg/dL (8.4-10.2); Carbon Dioxide 27 mmol/L (22-30); Chloride 109 mmol/L (98-107); Estimated CRCL calculation 73 ml/min; Estimated Glomerular Filt Rate > 60; Glucose 102 mg/dL (65-110); Potassium 3.4 mmol/L (3.4-5.0); Sodium 140 mmol/L (137-145); Total Protein 5.5 g/dL (6.3-8.2)
[2025-06-12 11:15] VITALS: BP 124/61; PULSE 89; RESP 20; O2SAT 99
== END 2025-06-12 12:31 | disposition home or self-care (01) ==
PROVIDERS: Emergency Provider Student in an Organized Health Care Education/Training Program; PCP Internal Medicine
DX: S42.024A Nondisplaced fracture of shaft of right clavicle, initial encounter for closed fracture (principal); S01.01XA Laceration without foreign body of scalp, initial encounter; S22.060A Wedge compression fracture of T7-T8 vertebra, initial encounter for closed fracture; S22.080A Wedge compression fracture of T11-T12 vertebra, initial encounter for closed fracture; F41.9 Anxiety disorder, unspecified; F32.A Depression, unspecified; E78.5 Hyperlipidemia, unspecified; W10.9XXA Fall (on) (from) unspecified stairs and steps, initial encounter
CPT/HCPCS: 12001; 36415; 70450; 72125; 72128; 72131; 73010; 73030; 80053; 85025; 99284; A4565; L0140

== ENCOUNTER 2025-07-04 10:55 | Outpatient (CLI) | payer MEDICARE, OTHER, SELFPAY ==
--- NOTE | ~2025-07-04 | XR_ITS ---
XR lumbar spine 2-3V Indication: S32.000A - Wedge compression fracture of unspecified lumb... Comparison: None Findings: Levoconvex scoliosis. Grade 1 retrolisthesis of L2 on L3 and L2 on L4, no acute fracture. Severe loss of disc height at L2-3 and L5-S1. Soft tissues unremarkable Posterior spinal canal catheter noted Impression: No acute abnormality. Reviewed, dictated and finalized at location A. Impression: No acute abnormality.
--- NOTE | ~2025-07-04 | XR_ITS ---
XR thoracic spine 3V Indication: S22.000A - Wedge compression fracture of unspecified thor... Comparison: None Findings: Moderate osteopenia. Moderate loss of vertebral height throughout with compression fractures of T12 and T9, loss of height 50%. No subluxation. Moderate loss of disc height throughout. Soft tissues unremarkable Impression: Compression fractures detailed above Reviewed, dictated and finalized at location A. Impression: Compression fractures detailed above
--- OUTSIDE RECORDS SUMMARY | 2025-07-04 11:47 | XMS_ITS | Clinical Summary ---
Author Organization [facility] Administrative Offices Address [address] [place] [address] Care Team Providers Care Ferruler Name Role Phone Marcos Campbell MD Primary [...] 40 mg capsule 40 mg daily. 08/26/20 Active meloxicam (MOBIC) 15 mg tablet Take 15 mg by mouth daily before breakfast. 08/26/20 Active potassium chloride (MICRO-K EXTENCAPS) 10 mEq Extended Release capsule Take 20 mEq by mouth daily. 06/20/20 Active pregabalin (LYRICA CR) 165 mg Extended Release 24 hour tablet 165 mg 3 times daily. 11/18/19 Active rOPINIRole (REQUIP) 1 mg tablet Take [...] PAIN 180 Tablet 2 04/27/20 25 Active QUEtiapine (SEROquel) 25 mg tablet Take 25 mg by mouth. 06/20/20 25 Active oxyCODONE (ROXICODONE) 5 mg tabletIndication s:Acute post-operative pain Take 1 Tablet (5 mg) by mouth every 6 hours as needed for Pain. Max Daily Amount: 20 mg 28 Tablet 5 4:58 PM CDT 06/08/20 25 025 cephALEXin (KEFLEX) 500 mg capsule Take 1 Capsule (500 mg) by mouth 3 times daily for 7 days. 21 Capsule 5 4:58 PM CDT 06/08/20 25 025 brace / splintIndication s:Compression fracture of thoracic vertebra, initial encounter ([facility]) Type: back, bilateral , Comment: TLSO 1 Each 06/26/20 25 025 Active Problems Problem Noted Date Diagnosed Date Compression fracture of thor acic vertebra, initial encounter 06/26/2025 S/P insertion of spinal cord stimulator 06/26/20 25 Falls 05/03/2025 Complex regional pain syndro me [...] (04/27/2024): Added automatically from request for surgery [id number] Diverticular disease of colon 11/07/2021 Intestinal malabsorption 11/07/2021 Iron deficiency anemia 11/07/2021 Lactose intolerance 11/07/2021 Neuropathy of right ulnar nerve at wrist 021 Overview (04/27/2024): Added automatically from request for surgery [id number] Pain in wrist 05/06/2017 History of artificial joint 05/20/2016 Osteoarthritis of hip 02/24/2016 Encounters Date Type Department Care Team Description 07/03/2025 External Device Data STL ABSTRACTION Provider, Abstract 06/26/2025 1:00 PM CDT Office Visit [facility] [id number] [place] [address] Jenni Tobar NP Compression fracture of thoracic vertebra, initial encounter ([facility]) (Primary Dx); Complex regional pain syndrome type 2 of right lower extremity; S/P insertion of spinal cord stimulator 06/26/2025 Orders Only [facility] [address] [place] [address] Dennis Foster MD Degeneration of intervertebral disc of lumbar region with discogenic back pain (Primary Dx) 06/12/2025 1:30 PM CDT - 06/12/2025 11:59 PM CDT Hospital Encounter [facility] CT Scan [address] [place] [address] Dennis Foster MD Discharge Disposition: Home or Self Care 06/12/2025 1:20 PM CDT - 06/12/2025 11:59 PM CDT Hospital Encounter [facility] [address] Scan [address] [place] [address] Dennis Foster MD Discharge Disposition: Home or Self Care 06/08/2025 12:51 PM CDT - 06/08/2025 3:19 PM CDT Surgery [facility] Operating Room [address] [address] [place] [address] Dennis Foster MD DRG SCS X3 LEADS & IPG REPLACEMENT [place] 06/08/2025 12:38 PM CDT Anesthesia Event [facility] Operating Room [address] [address] [place], [place] [address] Gilberto Cuevas MD Shaffer, Jason P, HEALTHCARE ECONOMICS MANAGER 06/08/2025 11:15 AM CDT - 06/08/2025 5:18 PM CDT Hospital Encounter [facility] Pre Post [address] [address] [place] [address] Dennis Foster MD Complex regional pain syndrome type 2 of right lower extremity Discharge Disposition: Home or Self Care 06/08/2025 Travel 05/22/2025 7:45 AM CDT Ancillary Procedure [facility] Operating Room [address] [facility] [address] [place] [address] Dennis Foster MD 05/22/2025 7:34 AM CDT - 05/22/2025 7:46 AM CDT Surgery [facility] Operating Room [address] [facility] [address] [place] [address] Dennis Foster MD B/L ISCHIAL TUBEROSITY INJ (NO BT) HIP JOINT INTRAARTICULAR INJECTION 05/22/2025 7:17 AM CDT - 05/22/2025 7:59 AM CDT Hospital Encounter [facility] Pre Post [address] [facility] [address] [place] [address] Dennis Foster MD Bursitis of other bursa of both hips Discharge Disposition: Home or Self Care 05/22/2025 External Device Data STL ABSTRACTION Provider, Abstract 05/22/2025 Travel 05/15/2025 7:30 AM CDT - 05/15/2025 7:42 AM CDT Surgery [facility] Operating Room [address] [facility] [address] [place] [address] Dennis Foster MD Bilateral GTB INJECTION 05/15/2025 7:05 AM CDT Ancillary Procedure [facility] Operating Room [address] [facility] [address] [place] [address] Dennis Foster MD 05/15/2025 6:44 AM CDT - 05/15/2025 7:33 AM CDT Hospital Encounter [facility] Pre Post [address] [facility] [address] [place] [address] Dennis Foster MD Bursitis of both hips, unspecified bursa Discharge Disposition: Home or Self Care 05/15/2025 Travel 05/09/2025 Travel 05/08/2025 Orders Only [facility] [address] [place] [address] Dennis Foster MD 05/08/2025 Telephone [facility] [address] [place] [address] Dennis Foster MD Scheduling Spinal Cord Stimulator 05/03/2025 1:00 PM CDT Office Visit [facility] [address] [place] [address] Jenni Tobar, MACHINES TECHNICIAN Ischial bursitis, unspecified laterality (Primary Dx); Complex regional pain syndrome type 2 of right lower extremity; Chronic use of opiate drug for therapeutic purpose; Falls 05/03/2025 Orders Only [facility] [address] [place] [address] Dennis Foster MD 05/02/2025 External Device Data STL ABSTRACTION Provider, Abstract 05/02/2025 Travel 05/01/2025 External Device Data STL ABSTRACTION Provider, Abstract 04/26/2025 Refill [facility] [address] [place] [address] Dennis Foster MD Chronic use of opiate drug for therapeutic purpose 04/10/2025 External Device Data STL ABSTRACTION Provider, Abstract 04/10/2025 External Device Data STL ABSTRACTION Provider, Abstract 04/06/2025 Orders Only [facility] [address] [place], [place] [address] Dennis Foster MD 04/03/2025 11:30 AM CDT Office Visit [facility] [address] [place] [address] Jenni Tobar NP Complex regional pain syndrome type 2 of right lower extremity (Primary Dx); Ischial bursitis, unspecified laterality from Last 3 Months Immunizations Immunization Administration Dates Next Due (PNEUMOVAX 23)(50 YRS UP) PN EUMOCOCCAL POLYSACCHARIDE (PPV23) 0.5 ML, IM 02/11/2022 Influenza Seasonal Unspecifi ed Formulation IM 07/18/2016 Influenza Seasonal Unspecifi ed Formulation PF IM 07/25/2019,07/18/2018,07/23/2015 Influenza Vaccine High Dose 65+ Yrs IM Influenza, Unspecified Formulation 07/11/2021 Zoster Vaccine Live [...] PM CDT 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 Gender Identity Female 04/30/2024 7:27 PM CDT Sexual Orientation Not on file Last Filed Vital Signs Vital Sign Reading Time Taken Comments Blood Pressure 131/59 06/26/2025 1:11 PM CDT Pulse 86 06/26/2025 1:11 PM CDT Temperature 36 C (96.8 F) 06/08/2025 5:00 PM CDT Respiratory Rate 14 06/08/2025 4:37 PM CDT Oxygen Saturation 96% 06/26/2025 1:11 PM CDT Inhaled Oxygen Concentration - - Weight 91 kg (200 lb 9.6 oz) 06/26/2025 1:11 PM CDT Height 157.5 cm (5' 2) 06/26/2025 1:11 PM CDT Body Mass Index 36.69 06/26/2025 1:11 PM CDT Plan of Treatment Upcoming Encounters Date Type Department Care Team (Late st Contact Info) Description 07/18/2025 2:30 PM CDT Office Visit [facility] [place] [address] [place] [address] [address] [place] [address] Jenni Tobar, [place] [address] [address] [address] [place] [address] Health Maintenance Due Date Last Done Comments [...] PCV) 02/11/2023 02/11/2022, 08/28/2020 INFLUENZA VACCINE (#1) 2025 2, 07/25/2019, 07/18/2018, Additional history exists COVID-19 Vaccine (4 - 2024-2 6 season) 2025 09/12/2021, 03/19/2021, 02/11/2021 RSV VACCINE (60+ or ) (1 - 1-dose 75+ series) 2032 COLORECTAL SCREENING 04/24/2035 04/24/2025 Colorectal Cancer Screening 04/24/2035 Medical Devices Implanted Type Area Cardiac Tech Device Identifier Shelf Expiration Date Model / Serial / Lot Lead Vectris 1x8 60cm [facility] [id number] - [id number] Implanted:Qty: 1 on 03/01/2025 by Dennis Foster MD at [facility] Lead N/A: Back [employer]- NEUROLOGIC TECH 01/08/2029 [id number] / / [id number] Lead Vectris 1x8 60cm [facility] [id number] - [id number] Implanted:Qty: 1 on 03/01/2025 by Dennis Foster MD at [facility] Lead N/A: Back [employer]- NEUROLOGIC TECH 01/26/2029 [id number] / / [id number] Lead Axium Slimtip 50cm [id number] - [id number] Implanted:Qty: 1 on 06/08/2025 by Dennis Foster MD at [facility] Lead N/A: Spine Lumbar [facility] [employer] 02/28/2027 [id number] [id number] / / [id number] Lead Axium Slimtip 50cm [id number] - [id number] Implanted:Qty: 1 on 06/08/2025 by Dennis Foster MD at [facility] Lead N/A: Spine Lumbar [facility] [employer] 02/28/2027 [id number] / / [id number] Neuro Stimulator Neuro Stimulator 99[employer]s- SPINAL [employer] 3664 / / Description:[email or web address]/[email or web address]/mr i-sup [email or web address]-jyxofxcj-ysu.html Generator Ext Pulse 2 [place] Neurostim Trial s 7032 - [id number] Implanted:Qty: 1 on 06/08/2025 by Dennis Foster MD at [facility] Neuro N/A: Spine Lumbar [facility] [employer] 05/26/2026 [id number] / / [id number] Neurostimulator Proclaim Ipg Pat 3664ans - Old - [id number] Implanted:Qty: 1 on 06/08/2025 by Dennis Foster MD at [facility] Neuro N/A: Spine Lumbar [facility] [employer] 02/27/2027 [id number] / / [id number] [place] Injex Bi-Wing [id number] - [id number] Implanted:Qty: 1 on 03/01/2025 by Dennis Foster MD at [facility] Other N/A: Back [employer]- NEUROLOGIC TECH 12/28/2028 [id number] / / [id number] Total Hip Replacement Right: Hip Procedures Procedure Name Priority Date/Time Associated Diagnosis Comments CT PRIOR STUDY Routine 06/12/2025 1:30 PM CDT Degeneration of intervertebral disc of lumbar region with discogenic back pain CT PRIOR STUDY Routine 06/12/2025 1:20 PM CDT Degeneration of intervertebral disc of lumbar region with discogenic back pain XR FLUORO LESS THAN 1 HOUR Routine 06/08/2025 3:28 PM CDT VA ELEC LEANDRO IMPLT NPGT SMPL SP/PN NPGT PRGRMG 06/08/2025 12:51 PM CDT Complex regional pain syndrome type 2 of right lower extremity Case Notes [place]-REP EMAILED 05-08-[address] FOSTER REQUESTING 120 MIN FOR THIS PROCEDURE 05/15/25 PER ELISSA 8--25rf VA INSJ/RPLCMT SPINAL NPG/RCVR POCKET CRTJ&CONNJ 06/08/2025 12:51 PM CDT Complex regional pain syndrome type 2 of right lower extremity Case Notes [place]-REP EMAILED 05-08-[address] FOSTER REQUESTING 120 MIN FOR THIS PROCEDURE 05/15/25 PER ELISSA 8--25rf VA PRQ IMPLTJ NSTIM ELECTRODE ARRAY EPIDURAL 06/08/2025 12:51 PM CDT Complex regional pain syndrome type 2 of right lower extremity Case Notes [place]-REP EMAILED 05-08-[address] FOTSER REQUESTING 120 MIN FOR THIS PROCEDURE 05/15/25 PER ELISSA 8-1-25rf XR FLUORO LESS THAN 1 HOUR Routine 05/22/2025 7:49 AM CDT CHG FLUOROSCOPIC GUIDANCE NEEDLE PLACEMENT ADD ON 05/22/2025 7:34 AM CDT Bursitis of other bursa of both hips VA ARTHROCENTESIS ASPIR&/INJ MAJOR JT/BURSA W/O US 05/22/2025 7:34 AM CDT Bursitis of other bursa of both hips CHG FLUOROSCOPIC GUIDANCE NEEDLE PLACEMENT ADD ON 05/15/2025 7:30 AM CDT Bursitis of both hips, unspecified bursa VA ARTHROCENTESIS ASPIR&/INJ MAJOR JT/BURSA W/O US 05/15/2025 7:30 AM CDT Bursitis of both hips, unspecified bursa XR FLUORO LESS THAN 1 HOUR Routine 05/15/2025 7:23 AM CDT from Last 3 Months Results * CT PRIOR STUDY (06/12/2025 1:30 PM CDT) Only the most recent of2 resultswithin the time period is included. Narrative 06/26/2025 1:30 PM CDT This exam was auto finalized to allow images to be scanned to PACS. us Dennis Foster MD CT ORDERABLES Final Result * XR FLUORO LESS THAN 1 HOUR (06/08/2025 3:28 PM CDT) Only the most recent of3 resultswithin the time period is included. Narrative 06/08/2025 3:29 PM CDT Order information only. Exam was auto-finalized. us Dennis Foster MD DIAGNOSTIC IMAGING ORDERABLES Final Result from Last 3 Months Insurance [place] [address] [employer] Advance Directives For more information, please contact: [phone] * Full Code (Latest Code Status on File) Date Activated Date Inactivated Comments 06/08/2025 11:58 AM 06/08/2025 7:18 PM * Full Code Date Activated Date Inactivated Comments 06/08/2025 11:26 AM 06/08/2025 11:57 AM Care Teams Ferruler Relationship Specialty Start Date End Date Marcos Campbell MD [address] [place] [address] PCP - General Internal Medicine 04/03/25
--- OUTSIDE RECORDS SUMMARY | 2025-07-04 11:47 | XMS_ITS | Encounter Summary ---
Author Organization [facility] Address [address] [place] [address] Phone Care Team Providers Care Electric Truck Crane Operator Name Role Phone Noah Mccarty MD Primary Care Provider Enid Martin MD Unavailable Richard Rankin DPT Unavailable [phone] Padmini Turner DPT Unavailable [phone] Lissett Hernandez DPT Unavailable [phone] Zulay Ghotra DPT Unavailable [phone]- Encounter Details Date Type Department Care Team (Late st Contact Info) Description 12/29/2022 Documentation [facility] Medicine Physical Therapy Pain Clinic [address] [facility] Advanced Medicine 14th [place] [address] [place] [address] Kimberly Davila, PT [address] [facility] [address] [place] [address] Social History Tobacco Use Types [...] on file 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 [facility] [facility] [address] [facility] [address] PCP - General 04/26/17 [place] [address] [place] [address] Surgeon Orthopedic Surgery 06/16/18 Richard Rankin, DPT [address] [place] [address] Physical Therapist Physical Therapy 12/20/22 Padmini Turner, DPT [address] [facility] [address] [place] [address] Physical Therapist Physical Therapy 11/18/23 03/08/24 Lissett Hernandez DPT [address] [facility] [address] [place] [address] Physical Therapist Physical Therapy 03/09/24 03/09/24 Zulay Ghotra, DPT [address] [facility] [address] [place] [address] Referring Physician Physical Therapy 03/09/24 documented as of this encounter
--- OUTSIDE RECORDS SUMMARY | 2025-07-04 11:47 | XMS_ITS | Clinical Summary ---
Author Organization [facility] Address [address] [place] [address] Care Team Providers Care Water Truck Driver Name Role Phone Noah Mccarty MD Primary Care Provider Enid Martin MD Unavailable Richard Rankin DPT Unavailable [phone] Zulay Ghotra DPT Unavailable Allergies Active [...] 1 tablet/capsule (100 mg total) by mouth components engineer before breakfast Active QUEtiapine (SEROquel) 100 mg [...] ORAL)Indications:h ealth Take 1 capsule by mouth components engineer before breakfast Active fluorometholone (FML) 0.1 % [...] one health Take 4 capsules by mouth components engineer before breakfast Active solifenacin (VESIcare) 5 mg [...] (11/27/2021): Added automatically from request for surgery [id number] Abdominal bloating 11/07/2021 Diverticular disease of colon 11/07/2021 Flatulence 11/07/2021 Lactose intolerance 11/07/2021 Iron deficiency anemia 11/07/2021 Intestinal malabsorption 11/07/2021 Neuropathy of right ulnar nerve at wrist 021 Overview (10/03/2021): Added automatically from request for surgery [id number] Pelvic pain 06/14/2017 Pain in wrist 05/06/2017 History of artificial joint 05/20/2016 Osteoarthritis of hip 02/24/2016 Family history of CREST syndrome Immunizations Immunization Administration Dates Next Due Influenza, Trivalent, IM (MDV) 07/18/2016 Influenza, Trivalent, Preser vative Free, Intramuscular 07/25/2019,07/18/2018,07/23/2015 Influenza, Unspecified 07/11/2021 Surgical History Surgery Date Site/Laterality Comments [place] TONSILLECTOMY PRIMARY/SEC ONDARY <AGE 12 10/18/1964 - 10/17/1965 HYSTERECTOMY 10/18/1993 - 10/17/1994 GASTRIC BYPASS 10/18/2003 - 10/17/2004 [place] ARTHRP ACETBLR/PROX FEM P ROSTC AGRFT/ALGRFT 10/18/2015 [...] on file 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 Gender Identity Female 05/24/2018 1:36 PM CDT [...] of 2 - PCV) 02/11/2023 02/11/2022, 08/28/2020 Fall Risk Assessment 08/31/2024 08/31/2023 Covid-19 Vaccine (4 - 2024-2 6 season) 2025 09/12/2021, 03/19/2021, 02/11/2021 Influenza Vaccine (#1) 2025 2, 07/11/2021, 07/25/2019, [...] as needed Medical Devices Implanted Type Area Wood Hacker Device Identifier Shelf Expiration Date Model / Serial / Lot [employer] Axium Slimtip 1mm 50cm 4 Electrode Lead Front Load Delivery 5mm [id number] - [id number] - [id number] Implanted:Qty: 1 on 08/31/2023 by Dennis Foster MD PhD at [facility] Lead N/A: Epidural Space [employer] 07/22/2024 [id number] / [id number] / [employer] Axium Slimtip 1mm 50cm 4 Electrode Lead Front Load Delivery 5mm [id number] - [id number] - [id number] Implanted:Qty: 1 on 08/31/2023 by Dennis Foster MD PhD at [facility] Lead N/A: Epidural Space [employer] 11/05/2024 [id number] [id number] / [id number] / [employer] Axium Slimtip 1mm 50cm 4 Electrode Lead Front Load Delivery 5mm [id number] - [id number] - [id number] Implanted:Qty: 1 on 08/31/2023 by Dennis Foster MD PhD at [facility] Lead N/A: Epidural Space [employer] 03/10/2025 [id number] 50A / [id number] / Rtha-05/07/2005 Implanted:05/07/20 05 (Quantity not on file) Right: Hip [employer] [id number] Seprafilm 6x5in Barrier Adhesion Sterile Disposable Latex Free - [id number] Implanted:Qty: 1 on 10/22/2021 by Ira Marsh MD at [facility] Right: Wrist [facility] [id number] 01/08/2024 [id number] / / [id number] [employer] [id number] Seprafilm 6x5in Barrier Adhesion Sterile Disposable Latex Free - [id number] Implanted:Qty: 1 on 12/09/2021 by Ira Marsh MD at [facility] Left: Wrist [facility] [id number] 01/08/2024 [id number] / / [id number] [employer] Axium Slimtip 1mm 50mm Front Load 4 Electrode 5mm Space Lead [id number] - [id number] - [id number] Implanted:Qty: 1 on 05/10/2023 by Dennis Foster MD PhD at [facility] [employer] [id number] 06/09/2024 [id number] 50A / [id number] / [employer] Axium Slimtip 1mm 50mm Front Load 4 Electrode 5mm Space Lead [id number] - [id number] - [id number] Implanted:Qty: 1 on 05/10/2023 by Dennis Foster MD PhD at [facility] [employer] [id number] 08/30/2024 [id number] [id number] / [id number] / [employer] Axium Slimtip 1mm 50mm Front Load 4 Electrode 5mm Space Lead [id number]/24/2 023 Implanted:05/10/20 by Dennis Foster MD PhD (Quantity not on file) N/A: Back [employer] [id number] 08/30/2024 [id number] / [id number] / [employer] Axium Slimtip 1mm 50mm Front Load 4 Electrode 5mm Space Lead [id number] - [id number] - [id number] Implanted:Qty: 1 on 08/06/2023 by Dennis Foster MD PhD at [facility] [employer] [id number] 07/07/2024 [id number]- 50A / [id number] / [employer] Neurostimulator Proclaim Drg Ipg W Iphone Pt Controller [id number] - Erft907.1 - [id number] Implanted:Qty: 1 on 09/02/2023 by Dennis Foster MD PhD at [facility] N/A: Epidural Space [employer] [id number] [id number] / [id number] / Insurance [facility] MEDICARE COMMERCIAL GENERIC MEDICARE [facility] Address[facility] [address] [place] [address] [employer] [facility] MEDICARE [facility] Advance Directives For more information, please contact: [phone] Documents on File Type Date Recorded Patient Body Shop Estimator Expl anation ADVANCE DIRECTIVE 09/07/2023 12:37 AM MARIA T ING WILL ADVANCE DIRECTIVE 09/07/2023 12:37 AM POW ER OF COMPLIANCE DIRECTOR-MEDICAL * Full Code (Latest Code Status on File) Date Activated Date Inactivated Comments 10/22/2021 7:28 PM 10/23/2021 2:52 PM Care Teams Water Truck Driver Relationship Specialty Start Date End Date Noah Mccarty MD [address] [facility] [address] [place] [address] PCP - General 04/26/17 [place] [address] [place] [address] Surgeon Orthopedic Surgery 06/16/18 Richard Rankin DPT [address] [place] [address] Physical Therapist Physical Therapy 12/20/22 Zulay Ghotra DPT [address] [facility] [address] [place] [address] Referring Physician Physical Therapy 03/09/24
--- OUTSIDE RECORDS SUMMARY | 2025-07-04 11:47 | XMS_ITS | Encounter Summary ---
Author Organization [facility] Address 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 Gender Identity Female 04/30/2024 7:27 PM CDT Sexual Orientation Not on file documented as of this encounter Plan of Treatment Upcoming Encounters Date Type Department Care Team (Late st Contact Info) Description 07/18/2025 2:30 PM CDT Office Visit [facility] [place] [address] [place] [address] Jenni Tobar NP [address] [address] [address] [place] [address] documented as of this encounter Visit Diagnoses Not on filedocumented in this encounter Care Teams Supply Chain Planner Relationship Specialty Start Date End Date Marcos Campbell MD [address] [place] [address] PCP - General Internal Medicine 04/03/25 documented as of this encounter
--- OUTSIDE RECORDS SUMMARY | 2025-07-04 11:47 | XMS_ITS | Encounter Summary ---
Author Organization [facility] Healthcare Address [address] [place] [address] Care Team Providers Care Building Code Inspector Name Role Phone Noah Mccarty MD Primary Care Provider Enid Martin MD Unavailable Richard Rankin DPT Unavailable [phone] Padmini Turner DPT Unavailable Lissett Hernandez DPT Unavailable [phone] Zulay Ghotra DPT Unavailable [phone] Encounter Details Date Type Department Care Team (Late st Contact Info) Description 05/10/[address] [facility] [address] 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 Gender Identity Female 05/24/2018 1:36 [...] on filedocumented in this encounter Care Teams Building Code Inspector Relationship Specialty Start Date End Date Noah Mccarty MD [address] [facility] [address] [place] [address] PCP - General 04/26/17 [place] [address] [place] [address] Surgeon Orthopedic Surgery 06/16/18 Richard Rankin DPT [address] [place] [address] Physical Therapist Physical Therapy 12/20/22 Padmini Turner, VAUGHNT [address] [facility] [address] [place], [place] [id number] Physical Therapist Physical Therapy 11/18/23 03/08/24 Lissett Hernandez DPT [address] [facility] [address] [place], [place] [id number] Physical Therapist Physical Therapy 03/09/24 03/09/24 Zulay Ghotra DPT [id number] [place], [place] [id number] Referring Physician Physical Therapy 03/09/24 documented as of this encounter
== END 2025-07-04 10:56 | disposition home or self-care (01) ==
PROVIDERS: PCP Internal Medicine; Visit Provider Internal Medicine
DX: S22.070A Wedge compression fracture of T9-T10 vertebra, initial encounter for closed fracture (principal); S22.080A Wedge compression fracture of T11-T12 vertebra, initial encounter for closed fracture; M41.86 Other forms of scoliosis, lumbar region; M43.16 Spondylolisthesis, lumbar region
CPT/HCPCS: 72072; 72100

== ENCOUNTER 2025-10-02 07:55 | Outpatient (CLI) | payer MEDICARE, OTHER, SELFPAY ==
--- NOTE | ~2025-10-02 | CT_ITS ---
EXAM/PROCEDURE: CT soft tissue neck chest wo HISTORY: S42.021G - Displaced fracture of shaft of right clavicle,... COMPARISON: C-spine and thoracic spine CT exam from June 12, 2025 TECHNIQUE: Noncontrast enhanced soft tissue neck CT FINDINGS: NECK CT: Scattered nonpathologic sized lymph nodes in the jugulodigastric posterior triangle and occipital submental and sternocleidomastoid regions. No bulky lymphadenopathy or or drainable fluid collection seen. Degenerative changes throughout the cervical spine not grossly changed from the previous C-spine exam. 1.5 cm nodule left thyroid gland. No acute process seen in the visualized portions of the intracranial contents. Mild bilateral maxillary sinus disease. Diffuse degenerative changes throughout the cervical spine. No acute or aggressive bony or soft tissue process seen. CHEST CT: Comminuted slightly impacted partially visualized distal right clavicular diaphyseal fracture with apparent bayonet deformity. Kyphoplasty changes in T9 and T11 with approximately 30% anterior compression fracture of the anteroinferior endplate of T8. The mid and posterior columns of T9 appear intact with no retropulsion. The remaining bones appear intact with degenerative changes. Within the lungs, prominent diffuse reticulation in the mid and lower lung smith but no focal consolidation effusion or pneumothorax. No advanced fibrotic changes. Lower trachea and mainstem bronchi are moderately narrowed. Mild cardiomegaly. Great vessels appear normal in size. Trace pericardial effusion. No bulky lymphadenopathy or masses seen. No acute process seen in the visualized portions of the upper abdomen. Cholecystectomy clips and gastric bypass surgical changes. A wire fragment is present in the left pulmonary artery extending into one of the segmental size pulmonary arteries of the left upper lobe. IMPRESSION: 1. Directed noncontrast soft tissue neck CT with no obvious mass or drainable fluid collection. Advanced degenerative changes in the cervical spine not clearly changed from previous CT exam. If there is concern for possible subtle soft tissue neck mass, soft tissue CT examination with contrast may provide additional beneficial information. 2. 30% anterior compression fracture of T9 new since the June 11 exam and could represent acute or subacute fracture. 3. Metallic wire fragment is present in the left pulmonary artery extending into one of the lower lobe segmental arteries. 4. Narrowing of the airways as above could be associated with developing tracheobronchomalacia. 5. Probably chronic fibrosing interstitial lung changes. Superimposed pneumonitis or atypical acute inflammatory/infectious process could have a similar appearance. Consider correlation with follow-up HRCT for optimal evaluation particularly if clinical presentation suggests interstitial lung disease. 6. Partially callused comminuted distal right clavicular fracture with bayonet deformity. Fracture lucencies remain open indicating delayed union. Correlate with follow-up clavicle x-rays. 7. A 1.5 cm left thyroid nodule. Correlate with follow-up thyroid ultrasound. Reviewed, dictated and finalized at location A. FOREMAN IMPRESSION: 1. Directed noncontrast soft tissue neck CT with no obvious mass or drainable f luid collection. Advanced degenerative changes in the cervical spine not clearl y changed from previous CT exam. If there is concern for possible subtle soft t issue neck mass, soft tissue CT examination with contrast may provide additiona l beneficial information. 2. 30% anterior compression fracture of T9 new since the June 11 exam and cou ld represent acute or subacute fracture. 3. Metallic wire fragment is present in the left pulmonary artery extending int o one of the lower lobe segmental arteries. 4. Narrowing of the airways as above could be associated with developing trache obronchomalacia. 5. Probably chronic fibrosing interstitial lung changes. Superimposed pneumonit is or atypical acute inflammatory/infectious process could have a similar appea emily. Consider correlation with follow-up HRCT for optimal evaluation particul alonzo if clinical presentation suggests interstitial lung disease. 6. Partially callused comminuted distal right clavicular fracture with bayonet deformity. Fracture lucencies remain open indicating delayed union. Correlate w ith follow-up clavicle x-rays. 7. A 1.5 cm left thyroid nodule. Correlate with follow-up thyroid ultrasound.
--- OUTSIDE RECORDS SUMMARY | 2025-10-02 08:00 | XMS_ITS | Encounter Summary ---
Author Organization [facility] Address [facility] [place] [address] Care Team Providers Care Application Systems Engineer Name Role Phone Noah Mccarty MD Primary Care Provider [phone] Khoa Bee MD Primary Care Provider Encounter Details Date Type Department Care Team (Latest Contact Info) Description 08/23/2018 Abstract [facility] , Armando Ramos MD Social History Tobacco Use Types Packs/Day Years Used Date Smoking Tobacco: Never Assessed Comments Unknown Sex and Gender Information Value Date Recorded Sex Assigned at Female 11/27/2024 2:38 PM PROMOTION OFFICER Legal Sex Female 6:09 PM CDT Gender Identity Not on file Sexual Orientation Not on file documented as of this encounter Plan of Treatment Not on file documented as of this encounter Visit Diagnoses Not on filedocumented in this encounter Care Teams Application Systems Engineer Relationship Specialty Start Date End Date Noah Mccarty MD [address] [facility] [address] [place] [address] [place] [address] PCP - General INTERNAL MEDICINE 11/15/18 01/31/25 Khoa Bee MD [address] [facility] [address] [place] [address] PCP - General INTERNAL MEDICINE 02/01/25 documented as of this encounter
--- OUTSIDE RECORDS SUMMARY | 2025-10-02 08:00 | XMS_ITS | Clinical Summary ---
Author Organization [facility] Address [address] [place] [address] Phone Care Team Providers Care Crayon Sorting Machine Feeder Name Role Phone Unavailable Primary Care Provider Unavailabl e Social History Tobacco Use Types Packs/Day Years Used Date Smoking Tobacco: Never Assessed Comments Unknown Sex and Gender Information Value Date Recorded Sex Assigned at Not on file Legal Sex Female 3:21 PM LODGE SALES ASSOCIATE Gender Identity Not on file Sexual Orientation Not on file Last Filed Vital Signs Vital Sign Reading Time Taken Comments Blood Pressure 80/50 10/06/2010 9:12 AM LODGE SALES ASSOCIATE Pulse 72 10/06/2010 9:12 AM LODGE SALES ASSOCIATE Temperature - - Respiratory Rate 12 10/06/2010 9:12 AM LODGE SALES ASSOCIATE Oxygen Saturation - - Inhaled Oxygen Concentration - - Weight 59 kg (130 lb) 10/06/2010 9:12 AM LODGE SALES ASSOCIATE Height - - Body Mass Index - - Plan of Treatment Not on file
--- OUTSIDE RECORDS SUMMARY | 2025-10-02 08:00 | XMS_ITS | Patient Health Record ---
Author Organization [facility] Address [address] [facility] 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 Problem Flatulence, eructation and gas pain (071773123) Bloating (R14.0) Active confirmed She has significant [...] Problem History of polyp of colon (situation) (207894349) History of colon polyps (Z86.010) Active confirmed Her last colonoscopy in October 2019 revealed hemorrhoids and a 5 mm polyp. She was advised to follow-up in 5 years. Problem Iron deficiency anemia (64800778) Iron deficiency anemia (D50.9) Active confirmed She underwent upper endoscopy and colonoscopy in November of this year due to iron deficiency anemia. It was suspected her anemia was related to malabsorption of iron from her gastric bypass surgery and the small gastric erosion. She received an iron infusion and has been monitoring her blood counts every 3 months. Problem Intolerance to lactose (finding) (249242280) Lactose intolerance (E73.9) Active confirmed She follows a dairy free diet. Problem Abdominal bloating (645663953) Abdominal bloating (R14.0) Active confirmed She complains today of abdominal bloating and gas she associates with SIBO. She was tested and treated several years ago for similar symptoms with Neomycin. Suspect this is the cause for her recent bloating. Unlikely considerations would be food intolerance, partial bowel obstruction, IBD, celiac disease, peptic ulcer, gastritis, or other. Problem Rectal pain (46366178) Rectal pain (K62.89) Active confirmed She has had tailbone pain for the last several months and has been sitting on a donut. As a result, this has caused increased pressure in her rectum. Her rectal exam today was unrevealing. 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 She does well on this medication and denies alarm features. She typically has a bowel movement every other day. Problem Diverticular disease of colon (648352353) Colonic diverticular disease (K57.30) Active confirmed Problem Acid reflux (044025975) Acid reflux (K21.9) Active confirmed She has occasional acid reflux, which she is typically able to control with Gaviscon as needed. Problem History of bypass of stomach (245096332) H/O gastric bypass (Z98.84) Active confirmed She [...] Coverage End Date Medicare E2 [address] [address] [place] [address] [id number] Scott Garcia Self - patient is the insured [facility] - DO NOT USE OF [address] [place] [address] [phone] [id number] Arnie Garcia Spouse - patient is the spouse of the insured Medical (General) History Medical History History ICD Code GERD Hemorrhoids SIBO Lactose Intolerance Diverticulosis Colon Polyps Anemia Depression/Bipolar Osteo Arthritis Insomnia Reynaud's Syndrome Neuropathy Fibromyalgia Sleep Apnea/CPAP Surgical History Surgery Date(Month/Year) EGD 11/2019 Colonoscopy 11/2019 Gastric Bypass 2004 Cholecystectomy Total Right Hip Replacement 2016 Bilateral RPK Surgery 2007 Tummy Grabiel 2007 Abdominoplasty 2006 Hysterectomy 1995 Bilateral Tubal Ligation 1982 Tonsillectomy and Adeniodectomy Bilateral Carpal Tunnel Release Adenoidectomy Bilateral Pistiform Extraction
--- OUTSIDE RECORDS SUMMARY | 2025-10-02 08:00 | XMS_ITS | Clinical Summary ---
Author Organization [facility] Address [address] [place] [address] Care Team Providers Care Engineer Steam Name Role Phone Noah Mccarty MD Primary Care Provider Enid Martin MD Unavailable Richard Rankin DPT Unavailable [phone] Zulay Ghotra DPT Unavailable Allergies Active [...] 1 tablet/capsule (100 mg total) by mouth perianesthesia nurse before breakfast Active QUEtiapine (SEROquel) 100 mg [...] ORAL)Indications:h ealth Take 1 capsule by mouth perianesthesia nurse before breakfast Active fluorometholone (FML) 0.1 % [...] one health Take 4 capsules by mouth perianesthesia nurse before breakfast Active solifenacin (VESIcare) 5 mg [...] (11/27/2021): Added automatically from request for surgery [id number] Abdominal bloating 11/07/2021 Diverticular disease of colon 11/07/2021 Flatulence 11/07/2021 Lactose intolerance 11/07/2021 Iron deficiency anemia 11/07/2021 Intestinal malabsorption 11/07/2021 Neuropathy of right ulnar nerve at wrist 021 Overview (10/03/2021): Added automatically from request for surgery [id number] Pelvic pain 06/14/2017 Pain in wrist 05/06/2017 History of artificial joint 05/20/2016 Osteoarthritis of hip 02/24/2016 Family history of CREST syndrome Immunizations Immunization Administration Dates Next Due Influenza, Trivalent, IM (MDV) 07/18/2016 Influenza, Trivalent, Preser vative Free, Intramuscular 07/25/2019,07/18/2018,07/23/2015 Influenza, Unspecified 07/11/2021 Surgical History Surgery Date Site/Laterality Comments CA TONSILLECTOMY PRIMARY/SEC ONDARY <AGE 12 10/18/1964 - 10/17/1965 HYSTERECTOMY 10/18/1993 - 10/17/1994 GASTRIC BYPASS 10/18/2003 - 10/17/2004 CA ARTHRP ACETBLR/PROX FEM P ROSTC AGRFT/ALGRFT 10/18/2015 [...] on file Legal Sex Female 7:08 AM INSPECTOR METAL FABRICATING Gender Identity Female 05/24/2018 1:36 PM CDT [...] needed Medical Devices Implanted Type Area Wood Ski Maker Device Identifier Shelf Expiration Date Model / Serial / Lot [employer] Axium Slimtip 1mm 50cm 4 Electrode Lead Front Load Delivery 5mm [id number] - [id number] - [id number] Implanted:Qty: 1 on 08/31/2023 by Dennis Foster MD PhD at [facility] Lead N/A: Epidural Space [employer] 07/22/2024 [id number] 50A / [id number] / [employer] Axium Slimtip 1mm 50cm 4 Electrode Lead Front Load Delivery 5mm [id number] - [id number] - [id number] Implanted:Qty: 1 on 08/31/2023 by Dennis Foster MD PhD at [facility] Lead N/A: Epidural Space [employer] 11/05/2024 [id number] 50A / [id number] / [employer] Axium Slimtip 1mm 50cm 4 Electrode Lead Front Load Delivery 5mm [id number] - [id number] - [id number] Implanted:Qty: 1 on 08/31/2023 by Dennis Foster MD PhD at [facility] Lead N/A: Epidural Space [employer] 03/10/2025 [id number] 50A / [id number] / Rtha-05/07/2005 Implanted:05/07/20 05 (Quantity not on file) Right: Hip [employer] [id number] Seprafilm 6x5in Barrier Adhesion Sterile Disposable Latex Free - [id number] Implanted:Qty: 1 on 10/22/2021 by Ira Marsh MD at [facility] Right: Wrist [facility] [id number] 01/08/2024 [id number] / / [id number] 2 [employer] [id number] Seprafilm 6x5in Barrier Adhesion Sterile Disposable Latex Free - [id number] Implanted:Qty: 1 on 12/09/2021 by Ira Marsh MD at [facility] Left: Wrist [facility] [id number] 01/08/2024 [id number] / / [id number] 2 [employer] Axium Slimtip 1mm 50mm Front Load 4 Electrode 5mm Space Lead [id number] - [id number] - [id number] Implanted:Qty: 1 on 05/10/2023 by Dennis Foster MD PhD at [facility] [employer] [id number] 06/09/2024 [id number] 50A / [id number] / [employer] Axium Slimtip 1mm 50mm Front Load 4 Electrode 5mm Space Lead [id number] - [id number] - [id number] Implanted:Qty: 1 on 05/10/2023 by Dennis Foster MD PhD at [facility] [employer] [id number] 08/30/2024 [id number] 50A / [id number] / [employer] Axium Slimtip 1mm 50mm Front Load 4 Electrode 5mm Space Lead [id number]-4/24/2 023 Implanted:05/10/20 by Dennis Foster MD PhD (Quantity not on file) N/A: Back [employer] [id number] 08/30/2024 [id number] 50A / [id number] / [employer] Axium Slimtip 1mm 50mm Front Load 4 Electrode 5mm Space Lead [id number] - [id number] - [id number] Implanted:Qty: 1 on 08/06/2023 by Dennis Foster MD PhD at [facility] [employer] [id number] 07/07/2024 [id number] [id number] / [id number] / [employer] Neurostimulator Proclaim Drg Ipg W Iphone Pt Controller [id number] - [id number] - [id number] Implanted:Qty: 1 on 09/02/2023 by Dennis Foster MD PhD at [facility] N/A: Epidural Space [employer] [id number] SYSXX / [id number] / Insurance [facility] MEDICARE COMMERCIAL GENERIC MEDICARE [facility] [facility] LIFE MEDICARE [facility] LIFE Advance Directives For more information, please contact: [phone] Documents on File Type Date Recorded Patient Reimbursement Coordinator Expl anation ADVANCE DIRECTIVE 09/07/2023 12:37 AM MARIA T ING WILL ADVANCE DIRECTIVE 09/07/2023 12:37 AM POW ER OF VENETIAN BLIND MECHANIC-MEDICAL * Full Code (Latest Code Status on File) Date Activated Date Inactivated Comments 10/22/2021 7:28 PM 10/23/2021 2:52 PM Care Teams Engineer Steam Relationship Specialty Start Date End Date Noah Mccarty MD [address] [facility] [address] [facility] [address] [place] [address] PCP - General 04/26/17 [place] [address] [place] [address] Surgeon Orthopedic Surgery 06/16/18 Richard Rankin DPT [address] [place], [place] [id number] Physical Therapist Physical Therapy 12/20/22 Zulay Ghotra DPT [address] [facility] [address] [place], [place] [address] Referring Physician Physical Therapy 03/09/24
--- OUTSIDE RECORDS SUMMARY | 2025-10-02 08:00 | XMS_ITS | Clinical Summary ---
Author Organization [facility] Address [address] [place] [address] Care Team Providers Care Carbide Powder Processor Name Role Phone Khoa Bee MD Primary [...] Date Campylobacter diarrhea 02/02/2025 Generalized weakness 02/01/2025 Social History Tobacco Use Types Packs/Day Years [...] from your doctor or pharmacy? Never 02/01/2025 [facility] Utilities Answer Date Recorded In the past 12 months has e [employer], gas, oil, or water [employer] threatened to shut off services in your [...] or ex-partner? No 02/01/2025 Social Connection and Isolation Panel Answer Date Recorded In a typical week, how many times do you talk on the phone with family, friends, or neighbors? More than three times a week 02/01/2025 How often do you get togethe r with friends or relatives? Once a week 02/01/2025 How often do you attend chur ch or adventism services? More than 4 times per year 02/01/2025 Do you belong to any clubs o r organizations such as gnosticism groups, unions, fraternal or athletic groups, or [...] and heating? Not hard at all 02/01/2025 [facility] of Occupat ional Health - Occupational Stress [...] any time in the past 12 m [facility], were you homeless or living in a longterm (including now)? 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 2:38 PM FLORAL DESIGN TEACHER Legal Sex Female 6:09 PM CDT Gender [...] C 1975 DTaP, Tdap and Td Vaccines (1 - Tdap) 1976 Zoster Vaccines (2 of 3) 06/13/2012 04/18/2012 Mammogram Screening 05/24/2015 05/24/2013, 3 Annual Medicare Wellness Visit 2022 Dexa Scan (General) 2022 Pneumococcal Vaccine: 50+ Years (2 of 2 - PCV) 02/11/2023 02/11/2022, 08/28/2020 COVID-19 Vaccine (1 - season) 2025 Influenza Adult (#1) 2025 02/11/2022, 07/11/2021, 07/25/2019, Additional history exists RSV Immunization or 60+ Years (1 - 1-dose 75+ series) 2032 Hepatitis A Vaccines Aged Out No long er eligible based on patient's age to complete this topic Meningococcal B Vaccine Aged Out No l onger eligible based on patient's age to complete this topic Meningococcal Vaccine Aged Out No troy lloyd eligible based on patient's age to complete this topic RSV Immunizations Under 20 Months Aged Out No longer eligible based on patient's age to complete this topic Goals Goal Patient Goal Type Associated Problems Recent Progress Patient-Stated? 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, motor bike mechanic Procedure Name Priority Date/Time Associated Diagnosis Comments MG DIAGNOSTIC RT DIGI Routine 05/24/2013 1:09 PM CDT from Last 3 Months or Most Recently Relevant to Health Maintenance Results * MG DIAGNOSTIC RT DIGI (05/24/2013 1:09 PM CDT) Anatomical Region Laterality Modality Breast Right Mammography 05/24/2013 1:09 PM CDT 05/24/2013 1:09 PM CDT Narrative 05/24/2013 4:31 PM CDT SCOTT GARCIA ORDERING MD: ROSARIO KIRBY DO ACCT: [id number] : 1955 PT TYPE: REG CLI SEX: F ORD SITE: [facility] OUTPT IMAGING STUDY DATE REPORT # PROCEDURE CODE PROCEDURE 05/24/13 [id number] DXMAMDIGRT MG DIAGNOSTIC MAMMO DIGITAL RT EXTORDERID [id number] ACCESSION NUMBER [id number] CHART DOCUMENT IMPRESSION: MULTIPLE TINY CLUSTERS OF [...] M.D. 05/24/2013 16:30 ROBERT PANTOJA M.D. P #[id number] P/MA CC: ROSARIO KIRBY D.O. Radiology image is available. Click on Image Link above. Procedure Note Armando Fxo MD - 08/11/2018 SCOTT GARCIA MD: ROSARIO KIRBY DO ACCT: [id number] : 1955 PT TYPE: REG CLI SEX: F ORD SITE: [facility] OUTPT IMAGING STUDY DATE REPORT # PROCEDURE CODE PROCEDURE 08/07/13 [id number] DXMAMDIGRT MG DIAGNOSTIC MAMMO DIGITAL RT EXTORDERID [id number] ACCESSION NUMBER [id number] CHART DOCUMENT IMPRESSION: MULTIPLE TINY CLUSTERS OF [...] M.D. 05/24/2013 16:30 ROBERT PANTOJA M.D. P #[id number] P/OPAL CC: ROSARIO KIRBY D.O. Radiology image is available. Click on Image Link above. Rosario Kirby DO MAMMO Final Result from Last 3 Months or Most Recently Relevant to Health Maintenance Insurance MEDICARE [facility] Advance Directives * POLST (Latest Code Status [...] None - No Artificial Nutrition Care Teams Carbide Powder Processor Relationship Specialty Start Date End Date Khoa Bee MD [address] [place] [address] [place] [id number] PCP - General INTERNAL MEDICINE 02/01/25
--- OUTSIDE RECORDS SUMMARY | 2025-10-02 08:00 | XMS_ITS | Encounter Summary ---
Author Organization [facility] Address [address] [place] [address] Phone Care Team Providers Care Homicide Investigator Name Role Phone Noah Mccarty MD Primary Care Provider Enid Martin MD Unavailable Richard Rankin DPT Unavailable Padmini Turner DPT Unavailable [phone] Lissett Hernandez DPT Unavailable [phone] Zulay Ghotra DPT Unavailable [phone] Encounter Details Date Type Department Care Team (Late st Contact Info) Description 12/29/2022 Documentation [facility] [address] [facility] Advanced Medicine 14th [place] [address] [place] [address] Kimberly Davila, PT [address] [facility] [address] [place] [address] Social History Tobacco Use Types [...] on file Legal Sex Female 7:08 AM FORMULA CHECKER Gender Identity Female 05/24/2018 1:36 PM CDT Sexual Orientation Straight 01/07/2023 7: 48 AM CDT documented as of this encounter Functional Status * Lower Extremity Functional (LEFS) Activities Question Answer Date of Assessment Author Any of your usual work, housework, or school activities 2 - Moderate difficulty 12/30/2022 9:00 AM Kimberly Arnold, PT Your usual hobbies, recreational, or sporting activities 1 - Quite a bit of difficulty 12/30/2022 9:00 AM Kimberly Arnold, PT Getting into or out of the bath 1 - Quite a bit of difficulty 12/30/2022 9:00 AM Kimberly Arnold, PT Walking between rooms 3 - A little bit o f difficulty 12/30/2022 9:00 AM Kimberly Arnold, PT Putting on your shoes or socks 1 - Quite a bit of difficulty 12/30/2022 9:00 AM Kimberly Arnold, PT Squatting 0 - Extreme difficul ty or unable to perform 12/30/2022 9:00 AM Kimberly Arnold, PT Lifting an object, like a bag of groceries from the floor 2 - Moderate difficulty 12/30/2022 9:00 AM Kimberly Arnold, PT Performing light activities around your home 3 - A little bit of difficulty 12/30/2022 9:00 AM Kimberly Arnold, PT Performing heavy activities around your home 1 - Quite a bit of difficulty 12/30/2022 9:00 AM Kimberly Arnold, PT Getting into or out of a car 2 - Moderate difficulty 12/30/2022 9:00 AM Kimberly Arnold, PT Walking 2 blocks 0 - Extreme difficul ty or unable to perform 12/30/2022 9:00 AM Kimberly Arnold, PT Going up or down 10 stairs (about 1 flight of stairs) 3 - A little bit of difficulty 12/30/2022 9:00 AM Kimberly Arnold, PT Standing for 1 hour 0 - Extreme difficul ty or unable to perform 12/30/2022 9:00 AM Kimberly Arnold, PT Sitting for 1 hour 4 - No difficulty 12/30/2022 9:00 A M Kimberly Arnold, PT Running on even ground 0 - Extreme diffi culty or unable to perform 12/30/2022 9:00 AM Kimberly Arnold, PT Running on uneven ground 0 - Extreme difficulty or unable to perform 12/30/2022 9:00 AM Kimberly Arnold, PT Making sharp turns while running fast 0 - Extreme difficulty or unable to perform 12/30/2022 9:00 AM Kimberly Arnold, PT Hopping 0 - Extreme difficul ty or unable to perform 12/30/2022 9:00 AM Kimberly Arnold, PT Rolling over in bed 2 - Moderate difficulty 12/30/2022 9:00 AM Kimberly Arnold, PT * LEFS Total Score: Answer Date of Assessment Author 25 12/30/2022 9:00 AM Marlys Arnold, PT * LEFS Percentage of Function Answer Date of Assessment Author 31.25 12/30/2022 9:00 AM Marlys Arnold, PT * Question Answer Date of Assessment Author BP Location Left arm 12/29/2022 11:24 AM MARIET Paz Puga RN BP Method Automatic 12/29/2022 11:24 AM CDT Paz Puga RN MAP (mmHg) 85 12/29/2022 11:34 AM MARIET Paz Puga RN * Alcohol Withdrawal BP Hierarchy Answer Date of Assessment Author 80 12/29/2022 10:10 AM MARIET Anny Goldstein RN * AUDIT-C Score Answer Date of Assessment Author 1 12/29/2022 10:16 AM MARIET Anny Goldstein RN * Alcohol Use Question Answer Date of Assessment Author Q1: How often do you have a drink containing alcohol? Monthly or less 12/29/2022 10:16 AM Anny Kruse RN Q2: How many drinks containing alcohol do you have on a typical day when you are drinking? 1 or 2 12/29/2022 10:16 AM Anny Kruse RN Q3: How often do you have six or more drinks on one occasion? Never 12/29/2022 10:16 AM Anny Kruse RN documented as of this encounter Plan [...] on filedocumented in this encounter Care Teams Homicide Investigator Relationship Specialty Start Date End Date Noah Mccarty MD [address] [facility] [address] [place] [address] PCP - General 04/26/17 [place] [address] [place] [address] Surgeon Orthopedic Surgery 06/16/18 Richard Rankin DPT [address] [facility] [address] [place] [address] Physical Therapist Physical Therapy 12/20/22 Padmini Turner, DPT [address] [facility] [address] [place], [place] [id number] Physical Therapist Physical Therapy 11/18/23 03/08/24 Lissett Hernandez DPT [address] [facility] [address] [place] [address] Physical Therapist Physical Therapy 03/09/24 03/09/24 Zulay Ghotra DPT [address] [facility] [address] [place], [place] [id number] Referring Physician Physical Therapy 03/09/24 documented as of this encounter
--- OUTSIDE RECORDS SUMMARY | 2025-10-02 08:00 | XMS_ITS | Encounter Summary ---
Author Organization [facility] Address [address] [place] [address] Care Team Providers Care Legal Recruiter Name Role Phone Noah Mccarty MD Primary Care Provider Enid Martin MD Unavailable Richard Rankin DPT Unavailable [phone] Padmini Turner DPT Unavailable Lissett Hernandez DPT Unavailable [phone] Zulay Ghotra DPT Unavailable [phone] Encounter Details Date Type Department Care Team (Late st Contact Info) Description 05/10/2023 Telephone [facility] [address] [facility] Advanced Medicine [address] [place] [address] Dennsi Foster MD PhD [address] [place] [address] Social History Tobacco Use Types Packs/Day Years [...] on file Legal Sex Female 7:08 AM ENDOCRINOLOGIST Gender Identity Female 05/24/2018 1:36 PM CDT Sexual Orientation Straight 01/07/2023 7: 48 AM CDT documented as of this encounter Functional Status * Question Answer Date of Assessment Author BP Location Right arm 05/10/2023 1:00 PM CDT Kira Elam RN BP Method Automatic 05/10/2023 1:00 PM CDT Kira Elam RN MAP (mmHg) 92 05/10/2023 1:00 PM CDT Kira Elam RN * Alcohol Withdrawal BP Hierarchy Answer Date of Assessment Author 75 05/10/2023 10:56 AM CDT Chris Hill RN documented as of this encounter Plan [...] filedocumented in this encounter Care Teams Legal Recruiter Relationship Specialty Start Date End Date Noah Mccarty MD [address] [place] [address] [place] [address] PCP - General 04/26/17 [place] [address] [place] [address] Surgeon Orthopedic Surgery 06/16/18 Richard Rankin, DPT [address] [place] [address] Physical Therapist Physical Therapy 12/20/22 Padmini Turner, DPT [address] [facility] [address] [place] [address] Physical Therapist Physical Therapy 11/18/23 03/08/24 Lissett Hernandez DPT [address] [facility] [address] [place] [address] Physical Therapist Physical Therapy 03/09/24 03/09/24 Zulay Ghotra, DPT [address] [facility] [address] [place] [address] Referring Physician Physical Therapy 03/09/24 documented as of this encounter
--- OUTSIDE RECORDS SUMMARY | 2025-10-02 08:00 | XMS_ITS | Patient Health Record ---
Author Organization [facility] Address [address] [place], [place] [id number] Care Team Providers Care Victims Advocate Clerk/Specialist Name Role Phone DENISE ROMO Unavailable [phone] Noah Mccarty Unavailable Unavailable Reason For Referral No Information Medications Medication SIG (Take, Route, Frequency, Duration) Notes Start Date End Date Status Furosemide 20 MG Oral Tablet ORAL furosemide 20 MG Oral TabletOriginal Medicationfurosemide 20 MG Oral Tablet *Reorder from [facility] for eRx and Interaction Alerts* 9 Active estradiol 0.01 MG Vaginal Insert VAGINAL estradiol 0.01 MG Vaginal InsertOriginal Medicationestradiol 0.01 MG Vaginal Insert *Reorder from [facility] for eRx and Interaction Alerts* 9 Active 0.4 ML cyclosporine 0.5 MG/ML Ophthalmic Suspension [Restasis] 0.4 ML cyclosporine 0.5 MG/M L Ophthalmic Suspension [Restasis]Original Medication0.4 ML cyclosporine 0.5 MG/ML Ophthalmic Suspension [Restasis] *Reorder from [facility] for eRx and Interaction Alerts* 9 Active fluoxetine 40 MG Oral Capsule ORAL fluoxetine 40 MG Oral CapsuleOriginal Medicationfluoxetine 40 MG Oral Capsule *Reorder from [facility] for eRx and Interaction Alerts* 9 Active cobamamide 0.1 MG / vitamin B12 5 MG Sublingual Tablet cobamamide 0.1 MG / vitamin B12 5 MG Sublingual TabletOriginal Medicationcobamamide 0.1 MG / vitamin B12 5 MG Sublingual Tablet *Reorder from [facility] for eRx and Interaction Alerts* 9 Active colestipol hydrochloride 1000 MG Oral Tablet ORAL colestipol hydrochloride 100 0 MG Oral TabletOriginal Medicationcolestipol hydrochloride 1000 MG Oral Tablet *Reorder from [facility] for eRx and Interaction Alerts* Active amitriptyline hydrochloride 50 MG Oral Tablet ORAL amitriptyline hydrochloride 50 MG Oral TabletOriginal Medicationamitriptyline hydrochloride 50 MG Oral Tablet *Reorder from [facility] for eRx and Interaction Alerts* Active solifenacin succinate 5 MG Oral Tablet [Vesicare] ORAL solifenacin succinate 5 MG Oral Tablet [Vesicare]Original Medicationsolifenacin succinate 5 MG Oral Tablet [Vesicare] *Reorder from [facility] for eRx and Interaction Alerts* Active atorvastatin 10 MG Oral Tablet ORAL atorvastatin 10 MG Oral TabletOriginal Medicationatorvastatin 10 MG Oral Tablet *Reorder from [facility] for eRx and Interaction Alerts* Active acetaminophen 300 MG / codeine phosphate 30 MG Oral Tablet [Tylenol with Codeine] ORAL acetaminophen 300 MG / codeine phosphate 30 MG Oral Tablet [Tylenol with Codeine]Original Medicationacetaminophen 300 MG / codeine phosphate 30 MG Oral Tablet [Tylenol with Codeine] *Reorder from [facility] for e Active Lactobacillus acidophilus [id number] UNT Oral Capsule ORAL Lactobacillus acidophilus [id number] UNT Oral CapsuleOriginal MedicationLactobacillus acidophilus [id number] UNT Oral Capsule *Reorder from [facility] for eRx and Interaction Alerts* Active alprazolam 0.5 MG Oral Tablet [Xanax] ORAL alprazolam 0.5 MG Oral Table t [Xanax]Original Medicationalprazolam 0.5 MG Oral Tablet [Xanax] *Reorder from [facility] for eRx and Interaction Alerts* Active quetiapine 400 MG Oral Tablet ORAL quetiapine 400 MG Oral TabletOriginal Medicationquetiapine 400 MG Oral Tablet *Reorder from [facility] for eRx and Interaction Alerts* Active cholecalciferol 0.05 MG Oral Tablet ORAL cholecalciferol 0.05 MG Oral TabletOriginal Medicationcholecalciferol 0.05 MG Oral Tablet *Reorder from [facility] for eRx and Interaction Alerts* Active calcium citrate 950 MG / cholecalciferol 250 UNT Oral Tablet ORAL calcium citrate 950 MG / cholecalciferol 250 UNT Oral TabletOriginal Medicationcalcium citrate 950 MG / cholecalciferol 250 UNT Oral Tablet *Reorder from [facility] for eRx and Interaction Alerts* Active celecoxib 200 MG Oral Capsule [Celebrex] ORAL celecoxib 200 MG Oral Capsul e [Celebrex]Original Medicationcelecoxib 200 MG Oral Capsule [Celebrex] *Reorder from [facility] for eRx and Interaction Alerts* Active Social History Social History Additional Details Category Social Info Options Details Migrated Social History Migrated Social History History of tobacco use : , Smoking Status : Never smoked , Alcohol intake : Plan Of Treatment No Information Insurance Providers Payer Name Payer Address Payer Phone Subscriber Number Group Number Insured Name Patient Relationship to Insured Coverage Start Date Coverage End Date [facility] [address] [place] [address] [id number] BHAVANI BILLS Spouse - patient is the spouse of the insured [facility] [address] [place] [address] [id number] JULIAN BILLS Self - patient is the insured
--- OUTSIDE RECORDS SUMMARY | 2025-10-02 08:00 | XMS_ITS | Clinical Summary ---
Author Organization [facility] Administrative Offices Address [address] [place] [address] Care Team Providers Care Hostler Helper Name Role Phone Marcos Campbell MD Primary Care Provider + Allergies Active Allergy Reactions Criticality Noted Date Comments Beet Hives High 06/09/2024 Lactose Diarrhea,Abdominal P ain,Other (See Comments) Low 09/04/2021 velazquez Red Dye Hives High 04/27/2024 Medications ALPRAZolam [...] mg by mouth daily before breakfast. 08/26/20 23 Active potassium chloride (MICRO-K EXTENCAPS) 10 mEq Extended Release capsule Take 20 mEq by mouth daily. 06/20/20 22 Active pregabalin (LYRICA CR) 165 mg Extended Release 24 hour tablet 165 mg 3 times daily. 11/18/19 24 Active rOPINIRole (REQUIP) 1 mg tablet Take 2 mg by mouth daily at bedtime. 06/16/20 22 Active rosuvastatin (CRESTOR) 10 mg tablet Take 10 mg by mouth daily. 03/29/20 23 Active solifenacin (VESICARE) 5 mg Tablet Take 10 mg by mouth daily at bedtime. 08/17/20 23 Active spironolactone (ALDACTONE) 25 mg tablet Take 25 mg by mouth daily. 06/20/20 22 Active tiZANidine (ZANAFLEX) 4 mg Tablet TAKE 1/2-1 TABLET BY MOUTH EVERY 6-8 HOURS NEEDED NOT TO EXCEED 3 DOSES IN 24 HOURS 02/08/20 24 Active zolpidem (AMBIEN) 10 mg tablet Take 10 mg by mouth nightly as needed. 09/22/20 23 Active fexofenadine (ANNABELLE) 180 mg tablet Take [...] 25 mg by mouth. 06/20/20 25 Active oxyCODONE-acetam inophen (PERCOCET) 7.5-325 mg TabletIndication s:Compression fracture of thoracic vertebra, initial encounter ([facility]) Take 1 Tablet by mouth every 6 hours as needed for Pain, Moderate. Max Daily Amount: 4 Tablets 120 Tablet 09/04/20 25 025 Active oxyCODONE-acetam inophen (PERCOCET) 7.5-325 mg TabletIndication s:Compression fracture of thoracic vertebra, initial encounter ([facility]) Take 1 Tablet by mouth every 6 hours as needed for Pain, Moderate. Max Daily Amount: 4 Tablets 120 Tablet 08/14/20 25 025 Discontin ued(Reord er) Active Problems Problem Noted Date Diagnosed Date Gait instability 08/14/2025 Compression fracture of thor acic vertebra, initial [...] (04/27/2024): Added automatically from request for surgery [id number] Diverticular disease of colon 11/07/2021 Intestinal malabsorption 11/07/2021 Iron deficiency anemia 11/07/2021 Lactose intolerance 11/07/2021 Neuropathy of right ulnar nerve at wrist 021 Overview (04/27/2024): Added automatically from request for surgery [id number] Pain in wrist 05/06/2017 History of artificial joint 05/20/2016 Osteoarthritis of hip 02/24/2016 Encounters Date Type Department Care Team Description 09/25/2025 1:30 PM COMMERCIAL BAKER HELPER Office Visit [facility] [address] [place] [address] Jenni Tobar NP Compression fracture of thoracic vertebra, initial encounter ([facility]) (Primary Dx); S/P insertion of spinal cord stimulator; Chronic use of opiate drug for therapeutic purpose; Falls; Degeneration of intervertebral disc of lumbar region, unspecified whether pain present; Ischial bursitis, unspecified laterality; Closed displaced fracture of shaft of right clavicle with delayed healing, subsequent encounter 09/06/2025 11:00 AM COMMERCIAL BAKER HELPER - 09/06/2025 11:10 AM COMMERCIAL BAKER HELPER Surgery [facility] Operating Room [address] [place] [address] [address] [place] [address] Dennis Foster MD LUMBAR EPIDURAL STEROID INJECTION 09/06/2025 10:55 AM COMMERCIAL BAKER HELPER Ancillary Procedure [facility] Operating Room [address] [facility] [address] [place] [address] Dennis Foster MD 09/06/2025 10:20 AM COMMERCIAL BAKER HELPER - 09/06/2025 11:25 AM COMMERCIAL BAKER HELPER Hospital En[facility] [address] [facility] [address] [place] [address] Dennis Foster MD Lumbar radiculopathy Discharge Disposition: Home or Self Care 09/06/2025 Travel 09/04/2025 11:35 AM COMMERCIAL BAKER HELPER Ancillary Procedure [facility] [address] [facility] [address] [place] [address] Dennis Foster MD 09/04/2025 11:30 AM COMMERCIAL BAKER HELPER - 09/04/2025 12:58 PM COMMERCIAL BAKER HELPER Hospital Encounter [facility] [address] [facility] [address] [place] [address] Dennis Foster MD Thoracic neuritis Discharge Disposition: Home or Self Care 09/04/2025 10:12 AM COMMERCIAL BAKER HELPER - 09/04/2025 10:25 AM COMMERCIAL BAKER HELPER Surgery [facility] [address] [facility] [place] [address] Dennis Foster MD THORACIC EPIDURAL STEROID INJECTION 09/04/2025 External Device Data STL ABSTRACTION Provider, Abstract 09/04/2025 Orders Only [facility] [address], [address] [place] [address] Suzanne Burkett, RN Compression fracture of thoracic vertebra, initial encounter ([facility]) 09/04/2025 Refill [facility] [address] [place] [address] Dennis Foster MD Compression fracture of thoracic vertebra, initial encounter ([facility]) 08/31/2025 Travel 08/31/2025 Orders Only [facility] [address], [address] [place] [phone] Dennis Fotser MD 08/31/2025 Telephone [facility] [address] [place] [phone] Dennis Foster MD Schedule Injection 08/23/2025 Telephone [facility] [address], [address] [place] [phone] Dennis Foster MD Medicaion (Muscle spams and increased pain); Medication Question 08/14/2025 12:22 PM CDT - 08/14/2025 1:[address] [facility] Operating [address] [place] [address] Dennis Foster MD VETEBROPLASTY T9 and T11 08/14/2025 12:15 PM CDT Ancillary Procedure [facility] [address] [facility] [address] [place] [address] Dennis Foster MD 08/14/2025 11:15 AM CDT - 08/14/2025 1:18 PM CDT Hospital Encounter [facility] [address] [place] [address] Dennis Foster MD Gait instability Discharge Disposition: Home or Self Care 08/14/2025 Orders Only [facility] [place] [address] [facility] [address] [place] [address] Suzanne Burkett, RN Compression fracture of thoracic vertebra, initial encounter ([facility]) 08/08/2025 External Device Data STL ABSTRACTION Provider, Abstract 08/07/2025 External Device Data STL ABSTRACTION Provider, Abstract 08/02/2025 Orders Only [facility] [address] [place] [address] Rende, Jenni, WEB ARCHITECT Compression fracture of thoracic vertebra, initial encounter ([facility]) 08/01/2025 Orders Only [facility] [address] [place] [address] Rende, Jenni, WEB ARCHITECT Compression fracture of thoracic vertebra, initial encounter ([facility]) 07/23/2025 Telephone [facility] [address] [place] [address] Rende, Jenni, WEB ARCHITECT Abnormal Imaging Results 07/23/2025 Orders Only [facility] [address] [place] [address] Rende, Jenni, WEB ARCHITECT Compression fracture of thoracic vertebra, initial encounter ([facility]) (Primary Dx) 07/21/2025 8:52 AM CDT - 07/21/2025 11:59 PM CDT Hospital Encounter [facility] Imaging Services [facility] [address] [place] [address] Rende, Jenni, WEB ARCHITECT Discharge Disposition: Home or Self Care 07/18/2025 2:30 PM CDT Office Visit [facility] [place] [address] [address], [address] [place] [address] Jenni Tobar NP Compression fracture of thoracic vertebra, initial encounter ([facility]) (Primary Dx); S/P insertion of spinal cord stimulator; Chronic use of opiate drug for therapeutic purpose; Complex regional pain syndrome type 2 of right lower extremity 07/18/2025 Orders Only [facility] [place] [address] [place] [address] [address] [place] [address] Dennis Foster MD Degeneration of intervertebral disc of lumbar region, unspecified whether pain present (Primary Dx) 07/04/2025 3:40 PM CDT - 07/04/2025 11:59 PM CDT Hospital Encounter [facility] Imaging Services [place] [address] [place] [address] [address] [place] [address] Dennis Foster MD Discharge Disposition: Home or Self Care 07/04/2025 3:35 PM CDT - 07/04/2025 11:59 PM CDT Hospital Encounter [facility] [place] [address] [place] [address] [address] [place] [phone] Dennis Foster MD Discharge Disposition: Home or Self Care 07/03/2025 External Device Data STL ABSTRACTION Provider, [...] who hurts you emotionally and/or physically? No 09/06/2025 Comments No Sex and Gender Information Value Date Recorded Sex Assigned at Female 04/30/2024 7:27 PM CDT Legal Sex Female 8:35 AM COMMERCIAL BAKER HELPER Gender Identity Female 04/30/2024 7:27 PM CDT Sexual Orientation Not on file Last Filed Vital Signs Vital Sign Reading Time Taken Comments Blood Pressure 122/68 09/25/2025 1:40 PM COMMERCIAL BAKER HELPER Pulse 73 09/25/2025 1:40 PM COMMERCIAL BAKER HELPER Temperature 36.2 C (97.1 F) 09/06/2025 11:24 AM COMMERCIAL BAKER HELPER Respiratory Rate 14 09/06/2025 11:20 AM COMMERCIAL BAKER HELPER Oxygen Saturation 97% 09/25/2025 1:40 PM COMMERCIAL BAKER HELPER Inhaled Oxygen Concentration - - Weight 88 kg (194 lb) 08/31/2025 10:32 AM COMMERCIAL BAKER HELPER Height 157.5 cm (5' 2) 08/31/2025 10:32 AM COMMERCIAL BAKER HELPER Body Mass Index 35.48 08/31/2025 10:32 AM COMMERCIAL BAKER HELPER Plan of Treatment Health Maintenance Due Date [...] RS (2 of 2 - PCV) 02/11/2023 02/11/2022 INFLUENZA VACCINE (#1) 2025 2, 07/25/2019, 07/18/2018, Additional history exists COVID-19 Vaccine (2 - 2024-2 6 season) 2025 09/12/2021 RSV VACCINE (60+ or ) (1 - 1-dose 75+ series) 2032 Medical Devices Implanted Type Area Icer Air Conditioning Device Identifier Shelf Expiration Date Model / Serial / Lot Cement Vertaplex [id number] - [id number] Implanted:Qty: 1 on 08/14/2025 by Dennis Foster MD at [facility] Cement N/A: Spine Lumbar [employer] 08/18/2026 [id number] / / [id number] Description:items below are part of kit: ref: [id number], lot: [id number], date: 04-17-2028 ref: [phone], lot: [id number], date: 09-16-25 Lead Vectris 1x8 60cm Trial [facility] [id number] - [id number] Implanted:Qty: 1 on 03/01/2025 by Dennis Foster MD at [facility] Lead N/A: Back [employer]- NEUROLOGIC TECH 01/08/2029 [id number] / / [id number] Lead Vectris 1x8 60cm Trial [facility] [id number] - [id number] Implanted:Qty: 1 on 03/01/2025 by Dennis Foster MD at [facility] Lead N/A: Back [employer]- NEUROLOGIC TECH 01/26/2029 [id number] / / [id number] Lead Axium Slimtip 50cm [id number] - [id number] Implanted:Qty: 1 on 06/08/2025 by Dennis Foster MD at [facility] Lead N/A: Spine Lumbar [employer] 02/28/2027 [id number] / / [id number] Lead Axium Slimtip 50cm [id number] - [id number] Implanted:Qty: 1 on 06/08/2025 by Dennis Foster MD at [facility] Lead N/A: Spine Lumbar [employer] 02/28/2027 [id number] / / [id number] Neuro Stimulator Neuro Stimulator Jump or Fall- [employer] 3664 / / Description:[email or web address] Generator Ext Pulse 2 [place] Neurostim Trial [facility] [id number] - [id number] Implanted:Qty: 1 on 06/08/2025 by Dennis Foster MD at [facility] Neuro N/A: Spine Lumbar [facility] [employer] 05/26/2026 [id number] / / [id number] Neurostimulator Proclaim Ipg Pat 3664ans - Old - [id number] Implanted:Qty: 1 on 06/08/2025 by Dennis Foster MD at [facility] Neuro N/A: Spine Lumbar [facility] [facility] [employer] 02/27/2027 [id number] / / [id number] [place] [employer] 32353 - [id number] Implanted:Qty: 1 on 03/01/2025 by Dennis Foster MD at [facility] Other N/A: Back [employer]- NEUROLOGIC TECH 12/28/2028 [id number] / / [id number] Hip Replacement Right: Hip Procedures Procedure Name Priority Date/Time Associated Diagnosis Comments XR FLUORO LESS THAN 1 HOUR Routine 09/06/2025 11:16 AM COMMERCIAL BAKER HELPER ND NJX DX/THER SBST INTRLMNR LMBR/SAC W/IMG GDN 09/06/2025 11:00 AM COMMERCIAL BAKER HELPER Lumbar radiculopathy XR FLUORO LESS THAN 1 HOUR Routine 09/04/2025 12:35 PM COMMERCIAL BAKER HELPER ND NJX DX/THER SBST INTRLMNR CRV/THRC W/IMG GDN 09/04/2025 10:12 AM COMMERCIAL BAKER HELPER Thoracic neuritis XR FLUORO LESS THAN 1 HOUR Routine 08/14/2025 12:40 PM CDT ND VERTEBROPLASTY EACH ADDL CERVICOTHOR/LUMBOSACRA L 08/14/2025 12:22 PM CDT Compression fracture of thoracic vertebra, unspecified thoracic vertebral level, initial encounter (CMS/HCC) ND PERQ VERTEBROPLASTY UNI/BI INJX CERVICOTHORACIC 08/14/2025 12:22 PM CDT Compression fracture of thoracic vertebra, unspecified thoracic vertebral level, initial encounter (CMS/HCC) CT THORACIC SPINE WO CONTRAST Stat 07/21/2025 9:16 AM CDT Compression fracture of thoracic vertebra, initial encounter ([facility]) X-RAY PRIOR STUDY Routine 07/04/2025 3:4 0 PM CDT Degeneration of intervertebral disc of lumbar region, unspecified whether pain present X-RAY PRIOR STUDY Routine 07/04/2025 3:3 5 PM CDT Degeneration of intervertebral disc of lumbar region, unspecified whether pain present from Last 3 Months Results * XR FLUORO LESS THAN 1 HOUR (09/06/2025 11:16 AM COMMERCIAL BAKER HELPER) Only the most recent of3 resultswithin the time period is included. Narrative 09/06/2025 11:16 AM COMMERCIAL BAKER HELPER Order Auto Finalized. Please see associated Operative Report/Progress Note/Procedure Note from the same date. us Loc Isaiah Foster MD DIAGNOSTIC IMAGING ORDERABLES Final Result * CT THORACIC SPINE WO CONTRAST (07/21/2025 9:16 AM CDT) Anatomical Region Laterality Modality Spine Computed Tomogra phy 07/21/2025 8:58 AM CDT Impressions 07/21/2025 9:48 AM CDT IMPRESSION: Since previous CT thoracic spine there is increased height loss of the fractures of T8 and T11. Sclerotic fracture line running through the superior third of T9. Superior endplate fracture of T7. Spondylosis. Healing right clavicular fracture. The examination was performed with the adjustment of mA according to the patient size and/or the use of Iterative Reconstruction Technique. DICTATION LOCATION: Location [address] [place] [address] 07/21/2025 9:[address] THORACIC SPINE WITHOUT CONTRAST WITH RECONSTRUCTIONS DATE: 07/21/2025 9:16 AM HISTORY: Compression fracture, thoracic Compression fracture of thoracic vertebra, initial encounter COMPARISON: June 12, 2025 TECHNIQUE: Helical axial CT of the thoracic spine from the cervical spine to the lumbar spine with sagittal and coronal reconstructions without contrast. FINDINGS: There is a sclerotic burst fracture of T11. A sclerotic fracture line extends through T9 superior vertebral body. There is a burst fracture of T9 and T8. A superior endplate fracture is present at T7. The T11 fracture shows retropulsion into the spinal canal of about 3 mm. Vacuum clefts are present at T11 and T12 disc space. Retropulsion of T9 and T8 are minimal. There is facet osteoarthritis through the lumbar spine. A healing fracture of the right clavicle is incidentally noted. There are multiple calcifications of the ligamentum flavum. INCIDENTAL FINDINGS: None. us Jenni Ekaterina DOMINGUEZ CT ORDERABLES Edited * XR PRIOR STUDY (07/04/2025 3:40 PM CDT) Only the most recent of2 resultswithin the time period is included. Narrative 07/18/2025 3:37 PM CDT This exam was auto finalized to allow images to be scanned to PACS. us Dennis Foster MD DIAGNOSTIC IMAGING ORDERABLES Final Result from Last 3 Mon[address]a [address] [facility] [place] [id number] MEDICARE PART A AND B [facility] [employer] Advance Directives For more information, please contact: [phone] * Full Code (Latest Code Status on File) Date Activated Date Inactivated Comments 06/08/2025 11:58 AM 06/08/2025 7:18 PM * Full Code Date Activated Date Inactivated Comments 06/08/2025 11:26 AM 06/08/2025 11:57 AM Care Teams Hostler Helper Relationship Specialty Start Date End Date Marcos Campbell MD [address] [place] [address] PCP - General Internal Medicine 04/03/25
== END 2025-10-02 07:56 | disposition home or self-care (01) ==
PROVIDERS: PCP Internal Medicine; Visit Provider Orthopaedic Surgery
DX: S42.021G Displaced fracture of shaft of right clavicle, subsequent encounter for fracture with delayed healing (principal); M43.02 Spondylolysis, cervical region; E04.1 Nontoxic single thyroid nodule; R91.8 Other nonspecific abnormal finding of lung field
CPT/HCPCS: 70490; 71250